=== PATIENT | female | born 1940 | race Caucasian/White ===

== ENCOUNTER → 2016-06-30 | Outpatient (CLI) | payer MEDICARE, OTHER ==
--- NOTE | 2016-07-01 11:22 | MM ---
Reason for exam: follow-up at short interval from prior study. Last mammogram was performed 1 year ago. History: Patient is postmenopausal. Benign excisional biopsy of the left breast. Benign excisional biopsy of the right breast. Physical Findings: Nurse did not find any significant physical abnormalities on exam. MG 3D Diag Mammo W/Cad NORM Bilateral CC and MLO view(s) were taken. Prior study comparison: August 31, 2015, left breast US breast LT. June 29, 2015, mammogram, performed at [facility]. May 22, 2014, left breast mammogram, performed at [facility]. September 09, 2013, mammogram, performed at [facility]. There are scattered fibroglandular densities. Finding: There are stable round, heterogeneous, grouped/clustered calcifications in the upper outer quadrant, middle position of both breasts. Previous mammotome biopsy in the left breast. No significant changes in finding since August 31, 2015, June 29, 2015, May 22, 2014, and September 09, 2013. These results were verbally communicated with the patient on 07/01/16. ASSESSMENT: Benign, BI-RAD 2 RECOMMENDATION: Routine screening mammogram of both breasts in 1 year.
== END | disposition home or self-care (01) ==
LOC: RADMAMWWP 14:05
PROVIDERS: ATTEND Family Medicine
DX: R92.8 Other abnormal and inconclusive findings on diagnostic imaging of breast (principal)
CPT/HCPCS: G0204; G0279

== ENCOUNTER → 2018-01-19 | Outpatient (CLI) | payer MEDICARE, OTHER | END | disposition home or self-care (01) | LOC: CPPFTMAIN 10:06 | PROVIDERS: ATTEND Internal Medicine Cardiovascular Disease | DX: I99.8 Other disorder of circulatory system (principal); I48.0 Paroxysmal atrial fibrillation; T46.2X5A Adverse effect of other antidysrhythmic drugs, initial encounter | CPT/HCPCS: 94060; 94726; 94729 ==

== ENCOUNTER → 2018-07-29 | Outpatient (CLI) | payer MEDICARE, OTHER ==
--- NOTE | 2018-07-30 10:56 | MM ---
Reason for exam: screening (asymptomatic). Last mammogram was performed 1 year and 1 month ago. History: Patient is postmenopausal. Benign excisional biopsy of the left breast. Benign excisional biopsy of the right breast. Physical Findings: A clinical breast exam by your physician is recommended on an annual basis and results should be correlated with mammographic findings. MG 3D Screening Mammo W/Cad Bilateral CC and MLO view(s) were taken. Prior study comparison: July 02, 2017, bilateral MG 3d screening mammo w/cad. June 30, 2016, bilateral MG 3d diag mammo w/cad NORM. There are scattered fibroglandular densities. No significant changes when compared with prior studies. ASSESSMENT: Benign, BI-RAD 2 RECOMMENDATION: Routine screening mammogram of both breasts in 1 year.
== END ==
LOC: RADMAMWWP 15:05
PROVIDERS: ATTEND Family Medicine
DX: Z12.31 Encounter for screening mammogram for malignant neoplasm of breast (principal)
CPT/HCPCS: 77063; 77067

== ENCOUNTER 2018-09-21 22:45 | Inpatient (IN) | payer OTHER, MEDICARE ==
[2018-09-21] MEDS ORDERED: MORPHINE SULFATE 2 MG/ML SYRINGE IVP STA (23:03)
[2018-09-21] MEDS ORDERED: DILTIAZEM DRIP BOLUS FROM BAG 1 MG SOLN IV ONE (23:04)
[2018-09-21] MEDS ORDERED: DILTIAZEM 125 MG in SODIUM CHLORIDE 0.9% 100 ML IV SCH (23:15)
--- NOTE | 2018-09-21 23:30 | XR ---
EXAM: XR Chest, 2 Views CLINICAL HISTORY: Chest Pain TECHNIQUE: Frontal and lateral views of the chest. COMPARISON: 04/11/2014 FINDINGS: Lungs: Unremarkable. No consolidation. Pleural space: Unremarkable. No pneumothorax. Heart: Stable cardiomediastinal silhouette. Mediastinum: See above. Bones/joints: No acute osseous abnormality. Tubes, lines and devices: Telemetry leads overlie the patient. IMPRESSION: No acute cardiopulmonary process.
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
[2018-09-22] MEDS ORDERED: NITROGLYCERIN SL TABS 0.4 MG TAB SUBLINGUAL PRN (00:33)
[2018-09-22] MEDS ORDERED: MORPHINE SULFATE 2 MG/ML SYRINGE IVP PRN (00:33)
[2018-09-22] MEDS: SODIUM CHLORIDE 0.9% 1,000 ML IV SCH (02:11)
[2018-09-22 02:36] LABS: Basophils % (A) 0 %; Eosinophils % (A) 0 %; HCT 41.1 % (34.0-46.0); HGB 12.8 gm/dL (11.4-16.0); Lymphocytes # (A) 1.7 k/uL (1.0-4.8); Lymphocytes % (A) 14 %; MCHC 31.3 g/dL (31.0-37.0); Mean Platelet Volume 8.5; Monocytes # (A) 0.7 k/uL (0-1.0); Monocytes % (A) 6 %; Neutrophils # (A) 9.5 k/uL (1.3-7.7); Neutrophils % (A) 78 %; Platelet Count 183 k/uL (150-450); RBC 4.95 m/uL (3.80-5.40); RDW 14.4 % (11.5-15.5); WBC 12.1 k/uL (3.8-10.6)
[2018-09-22 02:38] LABS: Albumin 3.8 g/dL (3.5-5.0); Magnesium 1.7 mg/dL (1.6-2.3); Potassium 4.7 mmol/L (3.5-5.1); Total Bilirubin 0.7 mg/dL (0.2-1.3); Total Protein 6.8 g/dL (6.3-8.2)
[2018-09-22 02:42] LABS: Partial Thromboplastin Time 22.5 sec (22.0-30.0); Prothrombin Time 10.4 sec (9.0-12.0)
[2018-09-22 05:36] LABS: Glucose,Whole Blood 123 mg/dL (75-99)
[2018-09-22] MEDS: INSULIN ASPART (NovoLOG) 100 UNIT/ML VIAL SQ SCH ×4 (06:47→21:45)
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
[2018-09-22] MEDS: LEVOTHYROXINE 25 MCG TAB PO SCH (09:28)
[2018-09-22] MEDS: FUROSEMIDE 20 MG TAB PO SCH (09:28)
[2018-09-22] MEDS: ATORVASTATIN 10 MG TAB PO SCH (09:28)
[2018-09-22] MEDS: LISINOPRIL 10 MG TAB PO SCH (09:28)
[2018-09-22] MEDS: METOPROLOL TARTRATE 50 MG TAB PO SCH (09:28)
[2018-09-22 11:45] LABS: Glucose,Whole Blood 177 mg/dL (75-99)
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
[2018-09-22 16:49] LABS: Glucose,Whole Blood 128 mg/dL (75-99)
[2018-09-22] MEDS ORDERED: RIVAROXABAN 20 MG TAB PO SCH (18:30)
[2018-09-22 20:47] LABS: Glucose,Whole Blood 188 mg/dL (75-99)
[2018-09-22 21:23] LABS: Hemoglobin A1C 9.2 % (4.0-6.0)
[2018-09-23] MEDS: SODIUM CHLORIDE 0.9% 1,000 ML IV SCH (02:34)
[2018-09-23 06:20] LABS: Glucose,Whole Blood 131 mg/dL (75-99)
[2018-09-23] MEDS: LEVOTHYROXINE 25 MCG TAB PO SCH (06:25)
[2018-09-23] MEDS: INSULIN ASPART (NovoLOG) 100 UNIT/ML VIAL SQ SCH ×2 (06:25→12:35)
[2018-09-23 07:04] LABS: Cholesterol 119 mg/dL (<200); HDL Cholesterol 45 mg/dL (40-60); LDL Cholesterol,Calculated 58 mg/dL (0-99); Triglycerides 81 mg/dL (<150)
[2018-09-23] MEDS ORDERED: ASPIRIN 325 MG TAB PO SCH (09:00)
[2018-09-23] MEDS: METOPROLOL TARTRATE 50 MG TAB PO SCH (09:50)
[2018-09-23] MEDS: FUROSEMIDE 20 MG TAB PO SCH (09:50)
[2018-09-23] MEDS: LISINOPRIL 10 MG TAB PO SCH (09:50)
[2018-09-23] MEDS: ATORVASTATIN 10 MG TAB PO SCH (09:53)
--- NOTE | 2018-09-23 10:00 | ECHOF ---
Referral Reason:afib MEASUREMENTS -------- HEIGHT: 157.5 cm WEIGHT: 68.5 kg BP: RVIDd: 2.9 cm (< 3.3) IVSd: 1.2 cm (0.6 - 1.1) LVIDd: 3.9 cm (3.9 - 5.3) LVPWd: 1.4 cm (0.6 - 1.1) IVSs: 1.4 cm LVIDs: 2.9 cm LVPWs: 1.8 cm LAESV Index (A-L): 34.49 ml/m Ao Diam: 2.8 cm (2.0 - 3.7) AV Cusp: 1.6 cm (1.5 - 2.6) LA Diam: 3.1 cm (2.7 - 3.8) RAP: 5.00 mmHg RVSP: 27.92 mmHg FINDINGS -------- Atrial fibrillation. This was a technically good study. The left ventricular size is normal. There is mild concentric left ventricular hypertrophy. Overa ll left ventricular systolic function is low-normal with, an EF between 50 - 55 %. The right ventricle is normal in size. LA is moderately dilated 34-39 ml/m2 The right atrial size is normal. The aortic valve is trileaflet and appears structurally normal. The mitral valve is normal. The mitral valve leaflets are mildly thickened. Mild mitral regurgita tion is present. The tricuspid valve appears structurally normal. Mild tricuspid regurgitation present. The right ventricular systolic pressure, as measured by Doppler, is 27.92mmHg. There is no pulmonic regurgitation present. The aortic root size is normal. Normal inferior vena cava with normal inspiratory collapse consistent with estimated right atrial pre ssure of 5 mmHg. Echo free space indicative of a pericardial fat pad. CONCLUSIONS -------- 1. Atrial fibrillation. 2. This was a technically good study. 3. The left ventricular size is normal. 4. There is mild concentric left ventricular hypertrophy. 5. Overall left ventricular systolic function is low-normal with, an EF between 50 - 55 %. 6. The right ventricle is normal in size. 7. LA is moderately dilated 34-39 ml/m2 8. The right atrial size is normal. 9. The aortic valve is trileaflet and appears structurally normal. 10. The mitral valve is normal. 11. The mitral valve leaflets are mildly thickened. 12. Mild mitral regurgitation is present. 13. The tricuspid valve appears structurally normal. 14. Mild tricuspid regurgitation present. 15. The right ventricular systolic pressure, as measured by Doppler, is 27.92mmHg. 16. There is no pulmonic regurgitation present. 17. The aortic root size is normal. 18. Normal inferior vena cava with normal inspiratory collapse consistent with estimated right atrial pressure of 5 mmHg. 19. Echo free space indicative of a pericardial fat pad. [employer] MANAGER: Anupama Hernandez RDCS
[2018-09-23 10:43] VITALS: RESP 18
[2018-09-23 11:54] LABS: Glucose,Whole Blood 135 mg/dL (75-99)
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
[2018-09-23 14:22] VITALS: BP 124/87; PULSE 108; TEMP 97.8
[2018-09-23 15:02] VITALS: BMI 27.4
[2018-09-23 16:53] LABS: Glucose,Whole Blood 175 mg/dL (75-99)
[2018-09-23] MEDS ORDERED: RIVAROXABAN 15 MG TAB PO SCH (18:30)
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
[2018-09-24] MEDS ORDERED: METOPROLOL SUCCINATE (ER) 50 MG TAB.ER.24H PO SCH (09:00)
== END 2018-09-23 17:10 | disposition home or self-care (01) | DRG 310 ==
LOC: EC 22:45 → 3SCARD 09-22 00:37
PROVIDERS: ADMIT Hospitalist; ATTEND Hospitalist
DX: I48.1 Persistent atrial fibrillation (principal); I42.9 Cardiomyopathy, unspecified; E11.9 Type 2 diabetes mellitus without complications; S60.511A Abrasion of right hand, initial encounter; I11.9 Hypertensive heart disease without heart failure; E03.9 Hypothyroidism, unspecified; I25.10 Atherosclerotic heart disease of native coronary artery without angina pectoris; E78.5 Hyperlipidemia, unspecified; Z79.4 Long term (current) use of insulin; Z79.890 Hormone replacement therapy; Z79.01 Long term (current) use of anticoagulants; Z79.899 Other long term (current) drug therapy; Z96.659 Presence of unspecified artificial knee joint; Z90.49 Acquired absence of other specified parts of digestive tract; V49.50XA Passenger injured in collision with unspecified motor vehicles in traffic accident, initial encounter; Y92.410 Unspecified street and highway as the place of occurrence of the external cause
CPT/HCPCS: 71046; 80053; 80061; 83036; 83735; 84443; 84484; 85025; 85610; 85730; 93005; 93306; 96365; 96376; 99285

== ENCOUNTER → 2018-10-06 | Outpatient (CLI) | payer OTHER, MEDICARE ==
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
== END | disposition home or self-care (01) ==
LOC: RADUSWWP 09:58
PROVIDERS: ATTEND Family Medicine
DX: R19.00 Intra-abdominal and pelvic swelling, mass and lump, unspecified site (principal); S20.20XA Contusion of thorax, unspecified, initial encounter; Z90.49 Acquired absence of other specified parts of digestive tract
CPT/HCPCS: 76700

== ENCOUNTER → 2018-10-07 | Outpatient (CLI) | payer OTHER, MEDICARE ==
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
== END | disposition home or self-care (01) ==
LOC: RADXRMAIN 09:56
PROVIDERS: ATTEND Family Medicine
DX: S22.32XA Fracture of one rib, left side, initial encounter for closed fracture (principal)

== ENCOUNTER 2018-11-04 15:43 | Observation (INO) | payer MEDICARE, OTHER ==
[2018-11-04] MEDS ORDERED: SODIUM CHLORIDE 0.9% 1,000 ML IV STA (16:09)
--- NOTE | 2018-11-04 16:25 | ED ---
Arrhythmia/Palpitations HPI - General Chief Complaint: Arrhythmia/Palpitations Stated Complaint: Abnormal EKG Time Seen by Provider: 11/04/18 15:58 Source: patient, RN notes reviewed, old records reviewed Mode of arrival: wheelchair Limitations: no limitations - History of Present Illness Initial Comments: This is a 78-year-old female the ER for evaluation presented for evaluation of irregular heart rate. Patient was at normal checkup with family doctor and sent in for evaluation. Patient states she has history of H of fibrillation has no complaints, admits to playing golf yesterday without significant complaint no difficulties no nausea vomiting no headache chest pain shortness of breath, no episodes of syncope. Patient's been taking all medications as prescribed. Patient was found to be in the doctor's office to have H of fibrillation el evated heart rate and sent to ER for evaluation MD Complaint: rapid heart beat, atrial fibrillation -: unknown Context: occurred during rest Arrhythmia History: atrial fibrillation, on anti-coagulants Associated Symptoms: denies other symptoms - Related Data Home Medications Medication Instructions Recorded Confirmed Furosemide [Lasix] 20 mg PO DAILY 07/14/13 11/04/18 Lisinopril [Zestril] 10 mg PO DAILY 07/14/13 11/04/18 Atorvastatin [Lipitor] 10 mg PO DAILY 07/18/13 11/04/18 Levothyroxine Sodium [Synthroid] 25 mcg PO DAILY 07/18/13 11/04/18 Cholecalciferol [Vitamin D3 (25 2,000 unit PO DAILY 09/22/18 11/04/18 Mcg = 1000 Iu)] Insulin Glargine,Hum.rec.anlog 12 unit SQ HS 09/22/18 11/04/18 [Lantus Solostar] Insulin Lispro [humaLOG Kwikpen] 2 unit SQ AC-TID 09/22/18 11/04/18 Pioglitazone HCl 30 mg PO DAILY 09/22/18 11/04/18 Rivaroxaban [Xarelto] 20 mg PO W/SUPPER 09/22/18 11/04/18 metFORMIN HCL [Glucophage] 500 mg PO BID-W/MEALS 09/22/18 11/04/18 Previous Rx's Medication Instructions Recorded Metoprolol Succinate (ER) [Toprol 50 mg PO DAILY #30 tab.er.24h 09/23/18 XL] Allergies Allergy/AdvReac Type Severity Reaction Status Date / Time No Known Allergies Allergy Verified 11/04/18 16:12 Review of Systems ROS Statement: Those systems with pertinent positive or pertinent negative responses have been documented in the HPI. ROS Other: All systems not noted in ROS Statement are negative. Past Medical History Past Medical History: Atrial Fibrillation, Diabetes Mellitus Additional Past Medical History / Comment(s): SEE DR TERESA'S H&P History of Any Multi-Drug Resistant Organisms: None Reported Past Surgical History: Breast Surgery Past Anesthesia/Blood Transfusion Reactions: No Reported Reaction Past Psychological History: No Psychological Hx Reported Smoking Status: Never smoker Past Alcohol Use History: None Reported Past Drug Use History: None Reported General Exam Limitations: no limitations General appearance: alert, in no apparent distress Head exam: Present: atraumatic, normocephalic, normal inspection Eye exam: Present: normal appearance, PERRL, EOMI. Absent: scleral icterus, c onjunctival injection, periorbital swelling ENT exam: Present: normal exam, mucous membranes moist Neck exam: Present: normal inspection. Absent: tenderness, meningismus, lymphadenopathy Respiratory exam: Present: normal lung sounds bilaterally. Absent: respiratory distress, wheezes, rales, rhonchi, stridor Cardiovascular Exam: Present: tachycardia, irregular rhythm, normal heart sounds. Absent: systolic murmur, diastolic murmur, rubs, gallop, clicks GI/Abdominal exam: Present: soft, normal bowel sounds. Absent: distended, tenderness, guarding, rebound, rigid Extremities exam: Present: normal inspection, full ROM, normal capillary refill. Absent: tenderness, pedal edema, joint swelling, calf tenderness Back exam: Present: normal inspection Neurological exam: Present: alert, oriented X3, CN II-XII intact Psychiatric exam: Present: normal affect, normal mood Skin exam: Present: warm, dry, intact, normal color. Absent: rash Course Vital Signs 11/04/18 11/04/18 11/04/18 15:50 16:30 17:00 Temperature 97.9 F Pulse Rate 128 H 116 H 134 H Respiratory 20 17 15 Rate Blood Pressure 143/99 145/95 153/90 O2 Sat by Pulse 99 97 100 Oximetry 11/04/18 18:00 Temperature Pulse Rate 109 H Respiratory 17 Rate Blood Pressure 140/89 O2 Sat by Pulse 100 Oximetry - Reevaluation(s) Reevaluation #1: 11/04/18 16:35 Medical record is reviewed history of A. fib on Xarelto Reevaluation #2: 11/04/18 18:34 Patient remains atrial fibrillation with rapid rate EKG Findings - EKG Comments: EKG Findings:: EKG shows A. fib with RVR rate 1:30, QRS 76, QTc 439 Medical Decision Making - Medical Decision Making 78 female the ER for evaluation. Patient will be admitted for atrial fibrillation with RVR. Patient is regarding anticoagulated - Lab Data Result diagrams: 11/04/18 16:17 11/04/18 16:17 Lab Results 11/04/18 11/04/18 11/04/18 Range/Units 16:17 16:17 16:17 WBC 8.0 (3.8-10.6) k/uL RBC 4.75 (3.80-5.40) m/uL Hgb 12.6 (11.4-16.0) gm/dL Hct 40.9 (34.0-46.0) % MCV 86.0 (80.0-100.0) fL MCH 26.5 (25.0-35.0) pg MCHC 30.9 L (31.0-37.0) g/dL RDW 16.1 H (11.5-15.5) % Plt Count 230 (150-450) k/uL Neutrophils % 59 % Lymphocytes % 31 % Monocytes % 7 % Eosinophils % 1 % Basophils % 1 % Neutrophils # 4.7 (1.3-7.7) k/uL Lymphocytes # 2.5 (1.0-4.8) k/uL Monocytes # 0.5 (0-1.0) k/uL Eosinophils # 0.1 (0-0.7) k/uL Basophils # 0.1 (0-0.2) k/uL Hypochromasia Slight Anisocytosis Slight PT 10.2 (9.0-12.0) sec INR 0.9 (<1.2) APTT 24.8 (22.0-30.0) sec Sodium 144 (137-145) mmol/L Potassium 4.1 (3.5-5.1) mmol/L Chloride 111 H (98-107) mmol/L Carbon Dioxide 22 (22-30) mmol/L Anion Gap 11 mmol/L BUN 23 H (7-17) mg/dL Creatinine 1.06 H (0.52-1.04) mg/dL Est GFR (CKD-EPI)AfAm 58 (>60 ml/min/1.73 sqM) Est GFR (CKD-EPI)NonAf 50 (>60 ml/min/1.73 sqM) Glucose 88 (74-99) mg/dL Calcium 9.2 (8.4-10.2) mg/dL Magnesium 2.0 (1.6-2.3) mg/dL Total Bilirubin 0.5 (0.2-1.3) mg/dL AST 41 H (14-36) U/L ALT 83 H (9-52) U/L Alkaline Phosphatase 87 (38-126) U/L Creatine Kinase 123 (30-135) U/L Troponin I (0.000-0.034) ng/mL Total Protein 7.3 (6.3-8.2) g/dL Albumin 4.1 (3.5-5.0) g/dL 11/04/18 Range/Units 16:17 WBC (3.8-10.6) k/uL RBC (3.80-5.40) m/uL Hgb (11.4-16.0) gm/dL Hct (34.0-46.0) % MCV (80.0-100.0) fL MCH (25.0-35.0) pg MCHC (31.0-37.0) g/dL RDW (11.5-15.5) % Plt Count (150-450) k/uL Neutrophils % % Lymphocytes % % Monocytes % % Eosinophils % % Basophils % % Neutrophils # (1.3-7.7) k/uL Lymphocytes # (1.0-4.8) k/uL Monocytes # (0-1.0) k/uL Eosinophils # (0-0.7) k/uL Basophils # (0-0.2) k/uL Hypochromasia Anisocytosis PT (9.0-12.0) sec INR (<1.2) APTT (22.0-30.0) sec Sodium (137-145) mmol/L Potassium (3.5-5.1) mmol/L Chloride (98-107) mmol/L Carbon Dioxide (22-30) mmol/L Anion Gap mmol/L BUN (7-17) mg/dL Creatinine (0.52-1.04) mg/dL Est GFR (CKD-EPI)AfAm (>60 ml/min/1.73 sqM) Est GFR (CKD-EPI)NonAf (>60 ml/min/1.73 sqM) Glucose (74-99) mg/dL Calcium (8.4-10.2) mg/dL Magnesium (1.6-2.3) mg/dL Total Bilirubin (0.2-1.3) mg/dL AST (14-36) U/L ALT (9-52) U/L Alkaline Phosphatase (38-126) U/L Creatine Kinase (30-135) U/L Troponin I <0.012 (0.000-0.034) ng/mL Total Protein (6.3-8.2) g/dL Albumin (3.5-5.0) g/dL - Radiology Data Radiology results: report reviewed (Chest x-rays negative for acute disease), image reviewed Disposition Clinical Impression: Atrial fibrillation with RVR Disposition: ADMITTED IP TO THIS HOSP Condition: Good Is patient prescribed a controlled substance at d/c from ED?: No Referrals: Ap Romero DO [Primary Care Provider] - 1-2 days
[2018-11-04 16:30] LABS: Anisocytosis Slight; Basophils # (A) 0.1 k/uL (0-0.2); Basophils % (A) 1 %; Eosinophils # (A) 0.1 k/uL (0-0.7); Eosinophils % (A) 1 %; HCT 40.9 % (34.0-46.0); HGB 12.6 gm/dL (11.4-16.0); Hypochromasia Slight; Lymphocytes # (A) 2.5 k/uL (1.0-4.8); Lymphocytes % (A) 31 %; MCH 26.5 pg (25.0-35.0); MCHC 30.9 g/dL (31.0-37.0); Mean Platelet Volume 8.3; Monocytes # (A) 0.5 k/uL (0-1.0); Monocytes % (A) 7 %; Neutrophils # (A) 4.7 k/uL (1.3-7.7); Neutrophils % (A) 59 %; Platelet Count 230 k/uL (150-450); RBC 4.75 m/uL (3.80-5.40); RDW 16.1 % (11.5-15.5)
[2018-11-04 16:34] LABS: Albumin 4.1 g/dL (3.5-5.0); Calcium 9.2 mg/dL (8.4-10.2); Potassium 4.1 mmol/L (3.5-5.1); Total Bilirubin 0.5 mg/dL (0.2-1.3); Total Protein 7.3 g/dL (6.3-8.2)
[2018-11-04 16:41] LABS: INR 0.9 (<1.2); Partial Thromboplastin Time 24.8 sec (22.0-30.0); Prothrombin Time 10.2 sec (9.0-12.0)
--- NOTE | 2018-11-04 17:01 | XR ---
EXAMINATION TYPE: XR chest 2V DATE OF EXAM: 11/04/2018 COMPARISON: 09/21/2018 HISTORY: Abnormal cardiogram TECHNIQUE: Frontal and lateral views of the chest are obtained. FINDINGS: There is some coarsening of upper lobe interstitial pulmonary markings. Heart is slightly enlarged. There is no heart failure. There are chest leads. Costophrenic angles are clear. There is o steopenia. Arthritic changes noted in the shoulder joints IMPRESSION: Mild fibrotic changes. Mild cardiomegaly. No acute lung disease. No change compared to l ast exam. .
[2018-11-04] MEDS ORDERED: SODIUM CHLORIDE 0.9% 1,000 ML IV ONE (18:06)
[2018-11-04] MEDS ORDERED: DILTIAZEM DRIP BOLUS FROM BAG 1 MG SOLN IV ONE (18:32)
[2018-11-04] MEDS ORDERED: NITROGLYCERIN SL TABS 0.4 MG TAB SUBLINGUAL PRN (18:33)
[2018-11-04] MEDS ORDERED: DILTIAZEM 125 MG in SODIUM CHLORIDE 0.9% 100 ML IV SCH (18:45)
[2018-11-04 21:17] VITALS: BMI 27.4
[2018-11-05 04:40] LABS: Cholesterol 131 mg/dL (<200); HDL Cholesterol 49 mg/dL (40-60); LDL Cholesterol,Calculated 64 mg/dL (0-99); Triglycerides 91 mg/dL (<150)
[2018-11-05] MEDS ORDERED: LEVOTHYROXINE 25 MCG TAB PO SCH (06:30)
[2018-11-05 07:00] LABS: Glucose,Whole Blood 112 mg/dL (75-99)
[2018-11-05] MEDS: INSULIN ASPART (NovoLOG) 100 UNIT/ML VIAL SQ SCH ×4 (07:00→12:29)
[2018-11-05] MEDS ORDERED: metFORMIN 500 MG TAB PO SCH (07:30)
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
[2018-11-05] MEDS ORDERED: LISINOPRIL 10 MG TAB PO SCH (09:00)
[2018-11-05] MEDS ORDERED: ATORVASTATIN 10 MG TAB PO SCH (09:00)
[2018-11-05] MEDS ORDERED: PIOGLITAZONE 30 MG TAB PO SCH (09:00)
[2018-11-05] MEDS ORDERED: CHOLECALCIFEROL 1,000 UNIT TAB PO SCH (09:00)
[2018-11-05] MEDS ORDERED: FUROSEMIDE 20 MG TAB PO SCH (09:00)
[2018-11-05] MEDS ORDERED: METOPROLOL SUCCINATE (ER) 100 MG TAB.ER.24H PO SCH (09:00)
[2018-11-05] MEDS ORDERED: METOPROLOL SUCCINATE (ER) 50 MG TAB.ER.24H PO SCH (09:00)
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
[2018-11-05 10:37] LABS: Appearance,Urine Clear (Clear); Bacteria,Urine Rare /hpf; Bilirubin,Urine Negative (Negative); Blood,Urine Negative (Negative); Color,Urine Yellow; Glucose,Urine (UA) Negative (Negative); Ketones,Urine Negative (Negative); Leukocyte Esterase,Urine Large (Negative); Mucus,Urine Rare /hpf; Nitrite,Urine Negative (Negative); Protein,Urine Negative (Negative); Specific Gravity,Urine 1.022 (1.001-1.035); Squamous Epithelial Cell,Urine 1 /hpf (0-4); WBC,Urine 24 /hpf (0-5)
[2018-11-05 10:59] VITALS: RESP 22
[2018-11-05 11:54] LABS: Glucose,Whole Blood 108 mg/dL (75-99)
[2018-11-05 12:17] VITALS: BP 173/74; PULSE 111; TEMP 97.7
[2018-11-05 14:04] LABS: T4, Free (Free Thyroxine) 1.18 ng/dL (0.78-2.19)
--- NOTE | 2018-11-05 16:41 | P.DS ---
Providers Date of admission: 11/04/18 18:33 Expected date of discharge: 11/05/18 Attending physician: Brissa Barrera Consults: 11/04/18 18:33 Consult Physician Urgent Consulting Provider: Laurie Silva Consult Reason/Comments: afib Do you want consulting provider notified?: Yes Primary care physician: [facility] Course: Final diagnosis Atrial fibrillation with fast ventricular rate Increased AST, ALT Increased creatinine with possible mild acute renal failure History of diabetes type 2 History of breast surgery history of hyperlipidemia History of hypothyroidism Discharge disposition Patient is being discharged in a stable condition with guarded prognosis to home and will follow-up with cardiology in one week. History of present illness This is a pleasant 78-year-old woman the complex history of multiple medical problems and is a Dr. Romero patient in the outpatient setting. Patient has a history of atrial fibrillation and was recently admitted for A. fib with a fast ventricular rate. Patient was started on a Cardizem drip at 5 mg per hour and was monitored closely. Patient denies any chest pain, shortness of breath, or palpitations at this time. Patient denies any nausea or vomiting and tolerating diet. Patient is eager to go home. Patient has remained afebrile. Cardiology was following. Patient is currently stable with much improvement. Patient's Toprol XL was increased from 50 mg to 100 mg daily and tolerating well. Patient will follow up with cardiology in one week. On exam vital signs are stable. Blood pressure is 129/67, temp is 97.8F, heart rate is 99, respirations are 22, oxygen is 99% on room air. Cardio S1 and S2 are heard and irregular. Respiratory system shows diminished in the bases otherwise clear to auscultation. Abdomen is soft and nontender. Nervous system shows no focal deficits and gait is steady. Please refer to medication reconciliation sheet for a list of medications. Patient Condition at Discharge: Good Plan - Discharge Summary New Discharge Prescriptions: New Metoprolol Succinate (ER) [Toprol XL] 100 mg PO DAILY 30 Days #30 tab.er.24h Continue Lisinopril [Zestril] 10 mg PO DAILY Furosemide [Lasix] 20 mg PO DAILY Levothyroxine Sodium [Synthroid] 25 mcg PO DAILY Atorvastatin [Lipitor] 10 mg PO DAILY Pioglitazone HCl 30 mg PO DAILY Rivaroxaban [Xarelto] 20 mg PO W/SUPPER Cholecalciferol [Vitamin D3 (25 Mcg = 1000 Iu)] 2,000 unit PO DAILY metFORMIN HCL [Glucophage] 500 mg PO BID-W/MEALS Insulin Glargine,Hum.rec.anlog [Lantus Solostar] 12 unit SQ HS Insulin Lispro [humaLOG Kwikpen] 2 unit SQ AC-TID Discontinued Metoprolol Succinate (ER) [Toprol XL] 50 mg PO DAILY #30 tab.er.24h Discharge Medication List Furosemide [Lasix] 20 mg PO DAILY 07/14/13 [History] Lisinopril [Zestril] 10 mg PO DAILY 07/14/13 [History] Atorvastatin [Lipitor] 10 mg PO DAILY 07/18/13 [History] Levothyroxine Sodium [Synthroid] 25 mcg PO DAILY 07/18/13 [History] Cholecalciferol [Vitamin D3 (25 Mcg = 1000 Iu)] 2,000 unit PO DAILY 09/22/18 [History] Insulin Glargine,Hum.rec.anlog [Lantus Solostar] 12 unit SQ HS 09/22/18 [History] Insulin Lispro [humaLOG Kwikpen] 2 unit SQ AC-TID 09/22/18 [History] Pioglitazone HCl 30 mg PO DAILY 09/22/18 [History] Rivaroxaban [Xarelto] 20 mg PO W/SUPPER 09/22/18 [History] metFORMIN HCL [Glucophage] 500 mg PO BID-W/MEALS 09/22/18 [History] Metoprolol Succinate (ER) [Toprol XL] 100 mg PO DAILY 30 Days #30 tab.er.24h 11/05/18 [Rx] Follow up Appointment(s)/Referral(s): Ap Romero DO [Primary Care Provider] - 1-2 days (ThursdayNovember 09 at 11:20) Balta Perez MD [STAFF PHYSICIAN] - 1 Week (Appt cancelled in december - November 16 at 3:15) Patient Instructions/Handouts: A-fib (Atrial Fibrillation) (DC), Heart Healthy Diet (DC), Blood Thinners (DC) Activity/Diet/Wound Care/Special Instructions: Activity limited until follow up continue with current diet Medications sent to the [facility] pharmacy follow up with Dr. Perez in one week Discharge Disposition: HOME SELF-CARE
[2018-11-05] MEDS ORDERED: RIVAROXABAN 20 MG TAB PO SCH (17:30)
[2018-11-05] MEDS ORDERED: INSULIN DETEMIR (LEVEMIR) 100 UNIT/ML SYR SQ SCH (21:00)
== END 2018-11-05 13:09 | disposition home or self-care (01) ==
LOC: EC 15:43 → 3SCARD 18:33
PROVIDERS: ADMIT Hospitalist; ATTEND Hospitalist
DX: I48.2 Chronic atrial fibrillation (principal); E03.9 Hypothyroidism, unspecified; E11.9 Type 2 diabetes mellitus without complications; E78.5 Hyperlipidemia, unspecified; I10 Essential (primary) hypertension; I42.9 Cardiomyopathy, unspecified; Z79.01 Long term (current) use of anticoagulants; Z79.4 Long term (current) use of insulin; Z79.890 Hormone replacement therapy; Z79.899 Other long term (current) drug therapy
CPT/HCPCS: 96361 ×2; 96366 ×2; 96376; 96365; 99285; 36415; 93005; 84439; 80061; 80053; 84443; 82550; 83735; 84484 ×2; 85025; 85610; 85730; 81001; 71046; G0378 ×2

== ENCOUNTER 2019-02-15 10:56 | Observation (INO) | payer MEDICARE, OTHER ==
[2019-02-15] MEDS ORDERED: SODIUM CHLORIDE 0.9% 500 ML 500 ML IV STA (11:16)
[2019-02-15] MEDS ORDERED: DILTIAZEM DRIP BOLUS FROM BAG 1 MG SOLN IV ONE (11:16)
--- NOTE | 2019-02-15 11:20 | ED ---
General Adult HPI - General Chief complaint: Chest Pain Stated complaint: Chest pain Time Seen by Provider: 02/15/19 11:00 Source: patient, family, RN notes reviewed, old records reviewed Mode of arrival: wheelchair - History of Present Illness Initial comments: This is an 78-year-old female presents emergency Department with a past medical history significant for atrial fibrillation and the patient states she is on Xarelto. Patient states last night about 3:00 morning she felt her heart start to race and he continues to race this morning. Patient states she's not having any chest pain but she does feel palpitations. Patient states she's also mildly short of breath. Patient denies any recent fever chills or cough. Patient denies any lightheadedness or dizziness. Patient denies any recent illness patient denies any nausea vomiting. Patient denies any abdominal pain. Patient denies any headache patient denies numbness or focal weakness. - Related Data Home Medications Medication Instructions Recorded Confirmed Furosemide [Lasix] 20 mg PO DAILY 07/14/13 02/15/19 Lisinopril [Zestril] 10 mg PO DAILY 07/14/13 02/15/19 Atorvastatin [Lipitor] 10 mg PO HS 07/18/13 02/15/19 Levothyroxine Sodium [Synthroid] 25 mcg PO DAILY 07/18/13 02/15/19 Cholecalciferol [Vitamin D3 (25 2,000 unit PO DAILY 09/22/18 02/15/19 Mcg = 1000 Iu)] Insulin Glargine,Hum.rec.anlog 12 unit SQ HS 09/22/18 02/15/19 [Lantus Solostar] Insulin Lispro [humaLOG Kwikpen] 2 unit SQ AC-TID 09/22/18 02/15/19 metFORMIN HCL [Glucophage] 500 mg PO BID-W/MEALS 09/22/18 02/15/19 Rivaroxaban [Xarelto] 15 mg PO W/SUPPER 02/15/19 02/15/19 Allergies Allergy/AdvReac Type Severity Reaction Status Date / Time No Known Allergies Allergy Verified 02/15/19 11:49 Review of Systems ROS Statement: Those systems with pertinent positive or pertinent negative responses have been documented in the HPI. ROS Other: All systems not noted in ROS Statement are negative. Past Medical History Past Medical History: Atrial Fibrillation, Diabetes Mellitus Additional Past Medical History / Comment(s): SEE DR TERESA'S H&P History of Any Multi-Drug Resistant Organisms: None Reported Past Surgical History: Breast Surgery Past Anesthesia/Blood Transfusion Reactions: No Reported Reaction Past Psychological History: No Psychological Hx Reported Smoking Status: Never smoker Past Alcohol Use History: None Reported Past Drug Use History: None Reported General Exam - General Exam Comments Initial Comments: GENERAL: Patient is well-developed and well-nourished. Patient is nontoxic and well- hydrated and is in mild distress. ENT: Neck is soft and supple. No significant lymphadenopathy is noted. Oropharynx is clear. Moist mucous membranes. Neck has full range of motion without eliciting any pain. EYES: The sclera were anicteric and conjunctiva were pink and moist. Extraocular movements were intact and pupils were equal round and reactive to light. Eyelids were unremarkable. PULMONARY: Unlabored respirations. Good breath sounds bilaterally. No audible rales rhonchi or wheezing was noted. CARDIOVASCULAR: Patient is tachycardic at over 150 beats a minute. ABDOMEN: Soft and nontender with normal bowel sounds. No palpable organomegaly was noted. There is no palpable pulsatile mass. SKIN: Skin is clear with no lesions or rashes and otherwise unremarkable. NEUROLOGIC: Patient is alert and oriented x3. Cranial nerves II through XII are grossly intact. Motor and sensory are also intact. Normal speech, volume and content. Symmetrical smile. MUSCULOSKELETAL: Normal extremities with adequate strength and full range of motion. No lower extremity swelling or edema. No calf tenderness. LYMPHATICS: No significant lymphadenopathy is noted PSYCHIATRIC: Normal psychiatric evaluation. Course Vital Signs 02/15/19 02/15/19 10:59 11:34 Temperature 98.1 F Pulse Rate 165 H 118 H Respiratory 18 16 Rate Blood Pressure 107/93 110/57 O2 Sat by Pulse 95 96 Oximetry Medical Decision Making - Medical Decision Making EKG shows atrial for ablation with rapid ventricular response at 160 beats a minute QRS is 80 QT interval is 294 QTC is 479. Patient's EKG shows no ST segment elevation or depression. I started the patient a Cardizem drip after I gave the patient a Cardizem bolus. Patient's heart rate was down to 125.1 pack and reevaluate the patient. Patient's chest x-ray shows a left lower basilar infiltrate. Patient states she did start coughing last night and was coughing quite a bit of sputum. I started the patient on Rocephin. I spoke with Dr. Madrid he agreed to admit the patient admitted the patient I wrote admitting orders and consult cardiology continued antibiotics. Cardizem was also continued on the floor. - Lab Data Result diagrams: 02/15/19 11:22 12 11:22 Lab Results 02/15/19 02/15/19 02/15/19 Range/Units 11:22 11:22 11:22 WBC 18.1 H (3.8-10.6) k/uL RBC 5.13 (3.80-5.40) m/uL Hgb 13.8 (11.4-16.0) gm/dL Hct 44.8 (34.0-46.0) % MCV 87.4 (80.0-100.0) fL MCH 27.0 (25.0-35.0) pg MCHC 30.8 L (31.0-37.0) g/dL RDW 15.1 (11.5-15.5) % Plt Count 228 (150-450) k/uL Neutrophils % 93 % Lymphocytes % 3 % Monocytes % 2 % Eosinophils % 1 % Basophils % 0 % Neutrophils # 16.9 H (1.3-7.7) k/uL Lymphocytes # 0.6 L (1.0-4.8) k/uL Monocytes # 0.4 (0-1.0) k/uL Eosinophils # 0.1 (0-0.7) k/uL Basophils # 0.0 (0-0.2) k/uL PT 11.8 (9.0-12.0) sec INR 1.1 (<1.2) APTT 29.5 (22.0-30.0) sec Sodium 138 (137-145) mmol/L Potassium 5.0 (3.5-5.1) mmol/L Chloride 109 H (98-107) mmol/L Carbon Dioxide 19 L (22-30) mmol/L Anion Gap 10 mmol/L BUN 18 H (7-17) mg/dL Creatinine 1.07 H (0.52-1.04) mg/dL Est GFR (CKD-EPI)AfAm 57 (>60 ml/min/1.73 sqM) Est GFR (CKD-EPI)NonAf 49 (>60 ml/min/1.73 sqM) Glucose 179 H (74-99) mg/dL Calcium 9.2 (8.4-10.2) mg/dL Magnesium 1.4 L (1.6-2.3) mg/dL Total Bilirubin 1.5 H (0.2-1.3) mg/dL AST 26 (14-36) U/L ALT 32 (9-52) U/L Alkaline Phosphatase 54 (38-126) U/L Troponin I (0.000-0.034) ng/mL Total Protein 7.0 (6.3-8.2) g/dL Albumin 3.9 (3.5-5.0) g/dL 02/15/19 Range/Units 11:22 WBC (3.8-10.6) k/uL RBC (3.80-5.40) m/uL Hgb (11.4-16.0) gm/dL Hct (34.0-46.0) % MCV (80.0-100.0) fL MCH (25.0-35.0) pg MCHC (31.0-37.0) g/dL RDW (11.5-15.5) % Plt Count (150-450) k/uL Neutrophils % % Lymphocytes % % Monocytes % % Eosinophils % % Basophils % % Neutrophils # (1.3-7.7) k/uL Lymphocytes # (1.0-4.8) k/uL Monocytes # (0-1.0) k/uL Eosinophils # (0-0.7) k/uL Basophils # (0-0.2) k/uL PT (9.0-12.0) sec INR (<1.2) APTT (22.0-30.0) sec Sodium (137-145) mmol/L Potassium (3.5-5.1) mmol/L Chloride (98-107) mmol/L Carbon Dioxide (22-30) mmol/L Anion Gap mmol/L BUN (7-17) mg/dL Creatinine (0.52-1.04) mg/dL Est GFR (CKD-EPI)AfAm (>60 ml/min/1.73 sqM) Est GFR (CKD-EPI)NonAf (>60 ml/min/1.73 sqM) Glucose (74-99) mg/dL Calcium (8.4-10.2) mg/dL Magnesium (1.6-2.3) mg/dL Total Bilirubin (0.2-1.3) mg/dL AST (14-36) U/L ALT (9-52) U/L Alkaline Phosphatase (38-126) U/L Troponin I <0.012 (0.000-0.034) ng/mL Total Protein (6.3-8.2) g/dL Albumin (3.5-5.0) g/dL Critical Care Time Critical Care Time: Yes Total Critical Care Time: 35 Disposition Clinical Impression: Atrial fibrillation with rapid ventricular response, Pneumonia Disposition: ADMITTED IP TO THIS HOSP Referrals: Ap Romero DO [Primary Care Provider] - 1-2 days Time of Disposition: 12:40
[2019-02-15] MEDS ORDERED: DILTIAZEM 125 MG in SODIUM CHLORIDE 0.9% 100 ML IV SCH (11:30)
[2019-02-15 11:35] LABS: Basophils % (A) 0 %; Eosinophils # (A) 0.1 k/uL (0-0.7); Eosinophils % (A) 1 %; HCT 44.8 % (34.0-46.0); HGB 13.8 gm/dL (11.4-16.0); Lymphocytes # (A) 0.6 k/uL (1.0-4.8); Lymphocytes % (A) 3 %; MCHC 30.8 g/dL (31.0-37.0); MCV 87.4 fL (80.0-100.0); Mean Platelet Volume 9.4; Monocytes # (A) 0.4 k/uL (0-1.0); Monocytes % (A) 2 %; Neutrophils # (A) 16.9 k/uL (1.3-7.7); Neutrophils % (A) 93 %; Platelet Count 228 k/uL (150-450); RBC 5.13 m/uL (3.80-5.40); RDW 15.1 % (11.5-15.5); WBC 18.1 k/uL (3.8-10.6)
[2019-02-15 11:44] LABS: Albumin 3.9 g/dL (3.5-5.0); Calcium 9.2 mg/dL (8.4-10.2); Magnesium 1.4 mg/dL (1.6-2.3); Total Bilirubin 1.5 mg/dL (0.2-1.3)
--- NOTE | 2019-02-15 11:55 | XR ---
EXAMINATION TYPE: XR chest 2V DATE OF EXAM: 02/15/2019 COMPARISON: Chest x-ray November 04, 2018. HISTORY: Chest pain and cough since yesterday. TECHNIQUE: Frontal and lateral views of the chest are obtained. FINDINGS: There is chronic parenchymal changes bilaterally with new left basilar opacity on frontal view less well seen on lateral view. Right lung remains clear. No pleural effusion or pneumothorax se en bilaterally. The cardiac silhouette size remains enlarged with atherosclerotic aorta. The osseou s structures remain demineralized. Degenerative change both shoulders at the glenohumeral joint is pr esent. IMPRESSION: Chronic changes and cardiomegaly with developing left basilar acute infiltrate thought p resent. Consider progress study.
[2019-02-15 12:10] LABS: INR 1.1 (<1.2); Partial Thromboplastin Time 29.5 sec (22.0-30.0); Prothrombin Time 11.8 sec (9.0-12.0)
[2019-02-15] MEDS ORDERED: cefTRIAXone IN SWFI 1,000 MG/10 ML SYRINGE IVP STA (12:35)
[2019-02-15] MEDS ORDERED: PNEUMONIA PROTOCOL UTILIZED 1 EACH MISC PO PRN (12:41)
[2019-02-15] MEDS ORDERED: AZITHROMYCIN 500 MG in SODIUM CHLORIDE 0.9% 250 ML IVPB STA (12:41)
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
[2019-02-15] MEDS ORDERED: RIVAROXABAN 15 MG TAB PO SCH (17:30)
--- NOTE | 2019-02-15 18:11 | ECHOF ---
Referral Reason:afib MEASUREMENTS -------- HEIGHT: 157.5 cm WEIGHT: 69.9 kg BP: RVIDd: 2.9 cm (< 3.3) IVSd: 0.9 cm (0.6 - 1.1) LVIDd: 4.3 cm (3.9 - 5.3) LVPWd: 1.0 cm (0.6 - 1.1) IVSs: 1.1 cm LVIDs: 3.7 cm LVPWs: 1.2 cm IVSd: 1.0 cm (0.6 - 1.1) LVIDd: 4.6 cm (3.9 - 5.3) LVPWd: 1.0 cm (0.6 - 1.1) IVSs: 1.1 cm LVIDs: 3.3 cm LVPWs: 1.7 cm EDV(Teich): 95 ml ESV(Teich): 45 ml EF(Teich): 53 % %FS: 27 % SV(Teich): 50 ml Ao Diam: 2.5 cm (2.0 - 3.7) AV Cusp: 1.8 cm (1.5 - 2.6) LA Diam: 2.6 cm (2.7 - 3.8) RAP: 5.00 mmHg RVSP: 10.41 mmHg FINDINGS -------- Atrial fibrillation. This was a technically difficult study with suboptimal views. The left ventricular size is normal. Left ventricular wall thickness is normal. There is severe g lobal hypokinesis of LV . Overall left ventricular systolic function is severely impaired with, an EF between 20 - 25 %. Left ventricular fillimg pressure cannot be estimated due to Atrial fibrillat ion. The left atrial size is normal. The right atrial size is normal. Aortic valve is trileaflet and is mildly thickened. The mitral valve is normal. The mitral valve leaflets are mildly thickened. Mild mitral regurgita tion is present. The tricuspid valve appears structurally normal. Mild tricuspid regurgitation present. Right vent ricular systolic pressure is normal at < 35 mmHg. There is no pulmonic regurgitation present. The aortic root size is normal. IVC Not well visulized. There is no pericardial effusion. 5.0mg of Lumason was utilized for enhancement of images CONCLUSIONS -------- 1. Atrial fibrillation. 2. This was a technically difficult study with suboptimal views. 3. The left ventricular size is normal. 4. Left ventricular wall thickness is normal. 5. Left ventricular fillimg pressure cannot be estimated due to Atrial fibrillation. 6. The left atrial size is normal. 7. The right atrial size is normal. 8. 5.0mg of Lumason was utilized for enhancement of images 9. Aortic valve is trileaflet and is mildly thickened. 10. The mitral valve is normal. 11. The mitral valve leaflets are mildly thickened. 12. Mild mitral regurgitation is present. 13. The tricuspid valve appears structurally normal. 14. Mild tricuspid regurgitation present. 15. Right ventricular systolic pressure is normal at < 35 mmHg. 16. There is no pulmonic regurgitation present. 17. The aortic root size is normal. 18. IVC Not well visulized. 19. There is no pericardial effusion. FLAT LOCKER: Anupama Hernandez RDCS
[2019-02-15] MEDS: METOPROLOL SUCCINATE (ER) 50 MG TAB.ER.24H PO SCH (19:53)
[2019-02-15 20:09] LABS: Glucose,Whole Blood 121 mg/dL (75-99)
[2019-02-15] MEDS ORDERED: ATORVASTATIN 10 MG TAB PO SCH (21:00)
--- NOTE | 2019-02-15 22:35 | P.HPIM ---
History of Present Illness H&P Date: 02/15/19 Chief Complaint: Heart racing History of present complaint: This is a pleasant 78-year-old patient of Dr. Dioni wright. Chronic stable medical conditions include hypertension, diabetes, hypothyroid, mild cognitive impairment. Patient has a known history of atrial fibrillation for which she is on Xarelto. Patient today felt her heart racing and slight discomfort of the chest and fluttering sensation. Minimal lightheadedness. Decided to come in. Found to be in atrial fibrillation with rapid ventricular rate. Patient was started on Cardizem drip. Cardiology was consulted. She has seen Dr. Kang from EP services in the past. Due for a procedure later this month. Review of systems: GEN.: Tired EYES: None HEENT: None NECK: None RESPIRATORY: None CARDIOVASCULAR: [As above GASTROINTESTINAL: None GENITOURINARY: None MUSCULOSKELETAL: [Some joint pains LYMPHATICS: None HEMATOLOGICAL: None PSYCHIATRY: Some forgetfulness NEUROLOGICAL: None Past medical history: Atrial fibrillation, hypertension, diabetes, hypothyroid Social history: Does not smoke or drink alcohol. Lives with her . Family history: Reviewed, noncontributory to presentation Physical examination: VITAL SIGNS: 98.1, 160, 18, 107/93, 95% room air GENERAL: BMI 28.3, laying in bed a bit tired. EYES: Pupils equal. Conjunctiva normal. HEENT: External appearance of nose and ears normal, oral cavity grossly normal. NECK: JVD not raised; masses not palpable. HEART: Heart sounds irregular; no edema. LUNGS: Respiratory rate normal; clear to auscultation. ABDOMEN: Soft, nontender, liver spleen not palpable, no masses palpable. PSYCH: Alert and oriented x3; mood and affect normal. Patient is forgetful NEUROLOGICAL: Cranial nerves grossly intact; no facial asymmetry, power and sensation grossly intact. LYMPHATICS: No lymph nodes palpable in the axilla and neck MUSCULOSKELETAL: Evidence of OA in the hands INVESTIGATIONS, reviewed in the clinical context: White count 18.1 hemoglobin 13.805 bun 18 and creatinine 1.076 Troponin I negative EKG tracing personally reviewed by me-atrial fibrillation with rapid ventricular rate about 160 Chest x-ray film personally reviewed by me-cardiomegaly and some venous prominence 2-D echo-atrial fibrillation, EF 20-25% Assessment: -Persistent atrial fibrillation now with a rapid ventricular rate -Cardiomyopathy EF 20-25% could be arrhythmia induced, including hypertensive heart disease -Essential hypertension -Diabetes mellitus type 2 chronically on insulin -Hypothyroid -Mild cognitive impairment Plan: Home medications resumed. Patient currently IV Cardizem. Patient has no respiratory symptoms. We'll DC the antibiotics. Cardiology consulted. Patient on Cardizem drip. Patient is on Xarelto. . Metoprolol was added. Past Medical History Past Medical History: Atrial Fibrillation, Diabetes Mellitus Additional Past Medical History / Comment(s): SEE DR KANG'S H&P History of Any Multi-Drug Resistant Organisms: None Reported Past Surgical History: Breast Surgery Past Anesthesia/Blood Transfusion Reactions: No Reported Reaction Past Psychological History: No Psychological Hx Reported Smoking Status: Never smoker Past Alcohol Use History: None Reported Past Drug Use History: None Reported - Past Family History Father History Unknown: Yes Medications and Allergies Home Medications Medication Instructions Recorded Confirmed Type Furosemide [Lasix] 20 mg PO DAILY 07/14/13 02/15/19 History Lisinopril [Zestril] 10 mg PO DAILY 07/14/13 02/15/19 History Atorvastatin [Lipitor] 10 mg PO HS 07/18/13 02/15/19 History Levothyroxine Sodium [Synthroid] 25 mcg PO DAILY 07/18/13 02/15/19 History Cholecalciferol [Vitamin D3 (25 2,000 unit PO DAILY 09/22/18 02/15/19 History Mcg = 1000 Iu)] Insulin Glargine,Hum.rec.anlog 12 unit SQ HS 09/22/18 02/15/19 History [Lantus Solostar] Insulin Lispro [humaLOG Kwikpen] 2 unit SQ AC-TID 09/22/18 02/15/19 History metFORMIN HCL [Glucophage] 500 mg PO BID-W/MEALS 09/22/18 02/15/19 History Rivaroxaban [Xarelto] 15 mg PO W/SUPPER 02/15/19 02/15/19 History Allergies Allergy/AdvReac Type Severity Reaction Status Date / Time No Known Allergies Allergy Verified 02/15/19 11:49 Physical Exam Vitals: Vital Signs Temp Pulse Pulse Resp BP BP Pulse Ox 02/15/19 19:48 98.4 F 108 H 16 124/58 02/15/19 16:00 97.9 F 126 H 16 109/63 97 02/15/19 15:00 119 H 20 101/56 95 02/15/19 14:00 117 H 98/80 02/15/19 13:20 113 H 18 114/83 96 02/15/19 13:00 123 H 112/75 02/15/19 12:00 125 H 112/54 99 02/15/19 11:34 118 H 16 110/57 96 02/15/19 11:13 95 02/15/19 10:59 98.1 F 165 H 18 107/93 95 Intake and Output 02/15/19 02/15/19 02/15/19 06:59 14:59 22:59 Intake Total 240 Balance 240 Intake: Oral 240 Other: Weight 68.039 kg 70.2 kg Results CBC & Chem 7: 02/15/19 11:22 02/15/19 11:22 Labs: Abnormal Lab Results - Last 24 Hours (Table) 02/15/19 02/15/19 02/15/19 Range/Units 11:22 11:22 20:08 WBC 18.1 H (3.8-10.6) k/uL MCHC 30.8 L (31.0-37.0) g/dL Neutrophils # 16.9 H (1.3-7.7) k/uL Lymphocytes # 0.6 L (1.0-4.8) k/uL Chloride 109 H (98-107) mmol/L Carbon Dioxide 19 L (22-30) mmol/L BUN 18 H (7-17) mg/dL Creatinine 1.07 H (0.52-1.04) mg/dL Glucose 179 H (74-99) mg/dL POC Glucose (mg/dL) 121 H (75-99) mg/dL Magnesium 1.4 L (1.6-2.3) mg/dL Total Bilirubin 1.5 H (0.2-1.3) mg/dL Thrombosis Risk Factor Assmnt - Choose All That Apply Any of the Below Risk Factors Present?: No Other Risk Factors: Yes Each Risk Factor Represents 3 Points: Age 75 years or older Thrombosis Risk Factor Assessment Total Risk Factor Score: 3 Thrombosis Risk Factor Assessment Level: Moderate Risk
[2019-02-16 06:16] LABS: Glucose,Whole Blood 144 mg/dL (75-99)
[2019-02-16 06:27] LABS: Calcium 8.9 mg/dL (8.4-10.2); Potassium 4.4 mmol/L (3.5-5.1)
--- NOTE | 2019-02-16 07:33 | XR ---
EXAMINATION TYPE: XR chest 2V DATE OF EXAM: 02/16/2019 COMPARISON: 02/15/2019 HISTORY: Follow-up for pneumonia. TECHNIQUE: Frontal and lateral views of the chest are obtained. FINDINGS: Retrocardiac opacity remains and appears along the bronchi on the lateral image. Pulmonary hyperinflation is seen without flattening of the diaphragms and may relate to good phase of inspirat ion. Chronic interstitial prominence is also seen. Cardiomediastinal silhouette is enlarged. Diffuse osseous demineralization. Cholecystectomy clips. IMPRESSION: Retrocardiac left basilar airspace disease appears along the bronchi and could relate to bronchitis or pneumonia in the proper clinical setting.
[2019-02-16] MEDS: METOPROLOL SUCCINATE (ER) 50 MG TAB.ER.24H PO SCH (08:38)
[2019-02-16 08:41] VITALS: RESP 16; TEMP 96
[2019-02-16] MEDS ORDERED: FUROSEMIDE 20 MG TAB PO SCH (09:00)
[2019-02-16] MEDS ORDERED: LISINOPRIL 10 MG TAB PO SCH (09:00)
[2019-02-16] MEDS ORDERED: LISINOPRIL 5 MG TAB PO SCH (09:00)
--- NOTE | 2019-02-16 09:30 | PN ---
PROGRESS NOTE Mrs. Vera is an 78-year-old female who presented with atrial fibrillation with rapid ventricular response. Her heart rate is under better control at this time. She is feeling better. Her breathing is stable. She denies any chest pain or dizziness. She denies any palpitation. She is scheduled to undergo AV yancy ablation with permanent pacemaker implantation by Dr. Kang. She underwent an echocardiogram that revealed severe cardiomyopathy with mild mitral and tricuspid regurgitation. In the past her systolic function was normal. It is possible the cardiomyopathy is rate-related cardiomyopathy. She continues to be at this time on the IV Cardizem, Lasix 20 mg daily, Zestril 5 mg daily, metoprolol succinate 50 mg twice a day, Xarelto 15 mg daily, Lipitor 10 mg daily. PHYSICAL EXAMINATION: Blood pressure 126/60 with a heart rate in the 80s. LUNGS: Clear. HEART: Irregular regular. S1, S2. No S3. No rub. ABDOMEN: Soft, nontender, positive bowel sounds, no organomegaly. EXTREMITIES: No edema. LAB DATA: Revealed BUN and creatinine 21 and 0.09, potassium 4.4. IMPRESSION: 1. Atrial fibrillation with rapid ventricular response. 2. Decrease in the ejection fraction could be related to the atrial fibrillation and rapid ventricular response. 3. Prior episode of atrial fibrillation with tachycardia, scheduled for ablation and permanent pacemaker implantation. RECOMMENDATION: I will stop the IV Cardizem. I will increase the dose of her beta fabio. Increase her level of activity. Depending on her progress, further recommendation will be made. MMODL / IJN: [id number] /
[2019-02-16 11:38] LABS: Glucose,Whole Blood 127 mg/dL (75-99)
[2019-02-16] MEDS ORDERED: AZITHROMYCIN 500 MG TAB PO SCH (12:00)
[2019-02-16 13:48] VITALS: BP 103/52; PULSE 106
[2019-02-16] MEDS ORDERED: METOPROLOL SUCCINATE (ER) 50 MG TAB.ER.24H PO SCH (16:00)
--- NOTE | 2019-02-18 13:18 | P.DS ---
Providers Date of admission: 02/15/19 13:01 Expected date of discharge: 02/16/19 Attending physician: Jarret Madrid Consults: 02/15/19 12:41 Consult Physician Stat Consulting Provider: [facility] Consult Reason/Comments: A. fib with rapid ventricular response Do you want consulting provider notified?: Yes Primary care physician: [facility] Hospital Course: Chief Complaint: Heart racing Hospital course: This is a pleasant 78-year-old patient of Dr. Dioni romero. Chronic stable medical conditions include hypertension, diabetes, hypothyroid, mild cognitive impairment. Patient has a known history of atrial fibrillation for which she is on Xarelto. Patient today felt her heart racing and slight discomfort of the chest and fluttering sensation. Minimal lightheadedness. Decided to come in. Found to be in atrial fibrillation with rapid ventricular rate. Patient was started on Cardizem drip. Cardiology was consulted. She has seen Dr. Kang from EP services in the past. Due for a procedure later this month. Heart rate better controlled before discharge. Symptoms greatly improved. keen for discharge. Consultation: Dr. Silva from cardiology Physical examination: VITAL SIGNS: 96, 88, 16, 126/58, 97% room air GENERAL: Propped up, comfortable EYES: Pupils equal. Conjunctiva normal. HEENT: External appearance of nose and ears normal, oral cavity grossly normal. NECK: JVD not raised; masses not palpable. HEART: Heart sounds irregular; no edema. LUNGS: Respiratory rate normal; clear to auscultation. ABDOMEN: Soft, nontender, liver spleen not palpable, no masses palpable. PSYCH: Alert and oriented x3; mood and affect normal. Patient is forgetful MUSCULOSKELETAL: Evidence of OA in the hands INVESTIGATIONS, reviewed in the clinical context: Potassium 4.4 bun 20 creatinine 1.09 Previous testing: White count 18.1 hemoglobin 13.805 bun 18 and creatinine 1.076 Troponin I negative EKG tracing personally reviewed by me-atrial fibrillation with rapid ventricular rate about 160 Chest x-ray film personally reviewed by me-cardiomegaly and some venous prominence 2-D echo-atrial fibrillation, EF 20-25% Assessment: -Persistent atrial fibrillation now with a rapid ventricular rate -Cardiomyopathy EF 20-25% could be arrhythmia induced, and or hypertensive heart disease -Essential hypertension -Diabetes mellitus type 2 chronically on insulin -Hypothyroid -Mild cognitive impairment Disposition: Home Patient Condition at Discharge: Stable Plan - Discharge Summary Discharge Rx Participant: No New Discharge Prescriptions: New Metoprolol Succinate (ER) [Toprol XL] 50 mg PO TID #90 tab.er.24h Continue Furosemide [Lasix] 20 mg PO DAILY Levothyroxine Sodium [Synthroid] 25 mcg PO DAILY Atorvastatin [Lipitor] 10 mg PO HS Cholecalciferol [Vitamin D3 (25 Mcg = 1000 Iu)] 2,000 unit PO DAILY metFORMIN HCL [Glucophage] 500 mg PO BID-W/MEALS Insulin Glargine,Hum.rec.anlog [Lantus Solostar] 12 unit SQ HS Insulin Lispro [humaLOG Kwikpen] 2 unit SQ AC-TID Rivaroxaban [Xarelto] 15 mg PO W/SUPPER Changed Lisinopril [Zestril] 5 mg PO DAILY #0 Discharge Medication List Furosemide [Lasix] 20 mg PO DAILY 07/14/13 [History] Atorvastatin [Lipitor] 10 mg PO HS 07/18/13 [History] Levothyroxine Sodium [Synthroid] 25 mcg PO DAILY 07/18/13 [History] Cholecalciferol [Vitamin D3 (25 Mcg = 1000 Iu)] 2,000 unit PO DAILY 09/22/18 [History] Insulin Glargine,Hum.rec.anlog [Lantus Solostar] 12 unit SQ HS 09/22/18 [History] Insulin Lispro [humaLOG Kwikpen] 2 unit SQ AC-TID 09/22/18 [History] metFORMIN HCL [Glucophage] 500 mg PO BID-W/MEALS 09/22/18 [History] Rivaroxaban [Xarelto] 15 mg PO W/SUPPER 02/15/19 [History] Lisinopril [Zestril] 5 mg PO DAILY #0 02/16/19 [Rx] Metoprolol Succinate (ER) [Toprol XL] 50 mg PO TID #90 tab.er.24h 02/16/19 [Rx] Follow up Appointment(s)/Referral(s): Ap Romero DO [Primary Care Provider] - 1-2 days (Spoke to sales receptionist. Office will call with appointment time) Balta Perez MD [STAFF PHYSICIAN] - 03/07/19 11:00 am (post pacemaker (to be done on the ). Device check and follow up) Patient Instructions/Handouts: A-fib (Atrial Fibrillation) (DC) Discharge Disposition: HOME SELF-CARE
== END 2019-02-16 16:30 | disposition home or self-care (01) ==
LOC: EC 10:56 → 3SCARD 13:01
PROVIDERS: ADMIT Hospitalist; ATTEND Hospitalist
DX: I48.19 Other persistent atrial fibrillation (principal); I42.8 Other cardiomyopathies; I10 Essential (primary) hypertension; E11.9 Type 2 diabetes mellitus without complications; E03.9 Hypothyroidism, unspecified; G31.84 Mild cognitive impairment of uncertain or unknown etiology; I25.10 Atherosclerotic heart disease of native coronary artery without angina pectoris; I08.1 Rheumatic disorders of both mitral and tricuspid valves; Z79.01 Long term (current) use of anticoagulants; Z79.899 Other long term (current) drug therapy; Z79.890 Hormone replacement therapy; Z79.4 Long term (current) use of insulin; Z98.890 Other specified postprocedural states
CPT/HCPCS: 96366 ×3; 96376; 96368; 96365; 96375; 99291; 36415; 93005; 80053; 80048; 83605; 83735; 84443; 84484; 85025; 85610; 85730; 87040; 71046 ×2; G0378 ×2; C8929; J0456; J0696; Q9950; 93306

== ENCOUNTER 2019-03-03 13:46 | Day surgery (SDC) | payer MEDICARE, OTHER ==
[~2019-03-03 13:46] MED LIST: ceFAZolin 1,000 MG in SODIUM CHLORIDE 0.9% IRRIGATIO 250 ML IRRIGATION ONE
[2019-03-03] MEDS: SODIUM CHLORIDE 0.9% 1,000 ML IV SCH ×2 (14:25→21:46)
[2019-03-03 14:39] LABS: Glucose,Whole Blood 102 mg/dL (75-99)
[2019-03-03] MEDS ORDERED: fentaNYL (PF) 50 MCG/ML 2 ML AMP ONE (16:10)
[2019-03-03] MEDS ORDERED: MIDAZOLAM 2 MG/2 ML VIAL ONE (16:10)
[2019-03-03] MEDS ORDERED: IOPAMIDOL-250 50ML BTL IV ONE (16:25)
[2019-03-03] MEDS ORDERED: LIDOCAINE 1% INJ 10MG/ML (20 ML MDV) ONE (16:46)
[2019-03-03] MEDS ORDERED: LIDOCAINE 1% INJ 10MG/ML (20 ML MDV) SQ ONE ×3 (17:04→17:12)
[2019-03-03] MEDS ORDERED: ACETAMINOPHEN TAB 325 MG TAB PO PRN (18:11)
[2019-03-03] MEDS ORDERED: HYDROcodone/APAP 5-325MG 1 EACH TAB PO PRN (18:11)
[2019-03-03] MEDS ORDERED: ACETAMINOPHEN IV (For NPO) 1,000 MG in EMPTY BAG 1 BAG IVPB ONE (20:00)
--- NOTE | 2019-03-03 20:58 | PCN ---
PROCEDURE NOTE Елена Vera is an 78-year-old female with atrial fibrillation. She underwent atrial fibrillation ablation in 2013. She has had a recent recurrence and has failed amiodarone. She has also failed rate-control medications with high-dose beta blockers. Therefore she was brought in for a biventricular pacemaker prior to proceeding with an AV node ablation. Patient was brought to the EP lab in a fasting state. Written informed consent was obtained prior to the procedure. The left shoulder area was prepped and draped as per protocol. Lidocaine 1% was used for local anesthesia. A 4 cm incision was made parallel to the deltopectoral groove, about 1.5 cm medial to it. The incision was carried down to the level of the pectoralis muscle. A subfascial pocket was made. Hemostasis was assured. The left axillary vein was accessed at 2 separate points under fluoroscopy, and via appropriately sized introducer sheaths, 3 leads were positioned. The right atrial lead was a 53 cm Medtronic model number 4574, serial number [id number]. The patient was in atrial fibrillation at the start of the study. Pacing impedance 768 ohms. The RV lead was positioned in the RV apex. This was a Medtronic model number 4074, 58 cm in length, with serial number [id number]. This passive lead was positioned in the RV apex. R-waves 15 mV. Pacing impedance ohms, pacing threshold 0.3 V at 0.5 milliseconds. Ten-volt test was negative. Access into the coronary sinus was very difficult, and despite multiple attempts, the coronary sinus could not be accessed. Therefore His bundle pacing was performed. This was a very long procedure. His bundle mapping revealed good His bundle signal with a current of injury; however, the thresholds were always elevated and were in the range of about 2.5 V at 1 millisecond. However, when the His bundle sheath was withdrawn, the thresholds would rise at least one volt. This was a repeated finding. Excellent His bundle signals with current of injury were noted. High thresholds were noted. Thresholds were higher when the sheath was withdrawn. Therefore, after several hours of very detailed mapping, we were able to get a small His bundle signal but with much better thresholds, and when the sheath was withdrawn, thresholds were around 1.5 to 1.7 V. However, this implantation of this lead to secure good thresholds took almost 2 hours, despite the fact that we had excellent His bundle signals all along. All leads were then secured to the underlying pectoralis muscle using 2 nonabsorbable sutures. Pocket was irrigated with antibiotic solution. Leads were connected to the generator, [employer] SIGNAL MAINTAINER HELPER pacemaker MRI, model number W1TR02, serial number [id number]. Leads and the generator were then placed in the subfascial pocket. The wound was closed in 3 layers and dressed per protocol. RESULTS: 1. Successful implantation of His bundle SIGNAL MAINTAINER HELPER for management of atrial fibrillation with RVR, prior to proceeding with AV node ablation. 2. This was a long procedure on account of high His bundle thresholds despite obtaining good His bundle signals, and the total procedure was over 3 hours. The patient tolerated the procedure well without any acute complications. PLAN: Continue beta blockers 100 mg b.i.d., and after about 4 to 6 weeks, once we ensure stable thresholds of the His lead, AV node modification will be performed. YARITZA / AARONN: [id number] /
[2019-03-03] MEDS ORDERED: INSULIN DETEMIR (LEVEMIR) 100 UNIT/ML SYR SQ SCH (21:00)
[2019-03-03] MEDS ORDERED: ATORVASTATIN 10 MG TAB PO SCH (21:00)
[2019-03-03 21:03] LABS: Glucose,Whole Blood 178 mg/dL (75-99)
[2019-03-03] MEDS ORDERED: ONDANSETRON 4 MG/2 ML VIAL IVP PRN (21:06)
[2019-03-03] MEDS: METOPROLOL SUCCINATE (ER) 50 MG TAB.ER.24H PO SCH (23:18)
[2019-03-04] MEDS ORDERED: LEVOTHYROXINE 25 MCG TAB PO SCH (06:30)
[2019-03-04 06:44] LABS: Glucose,Whole Blood 90 mg/dL (75-99)
--- NOTE | 2019-03-04 07:04 | XR ---
EXAMINATION TYPE: XR chest 2V DATE OF EXAM: 03/04/2019 CLINICAL HISTORY: Lead placement check TECHNIQUE: Frontal and lateral projections were obtained. COMPARISON: 02/16/2019 FINDINGS: Heart size is borderline prominent. Pacemaker is placed over the left chest. 3 leads are pr esent. No pneumothorax is evident. Pulmonary vasculature is normal. There is some silhouetting of the mid left diaphragm. This has sligh t improvement from comparison may be related atelectasis. Some left upper lobe infiltrates not exclud ed. IMPRESSION: 1. No pneumothorax post pacemaker placement.
[2019-03-04 08:04] VITALS: RESP 18
[2019-03-04] MEDS: INSULIN ASPART (NovoLOG) 100 UNIT/ML VIAL SQ SCH ×2 (08:17→11:57)
[2019-03-04] MEDS ORDERED: LISINOPRIL 5 MG TAB PO SCH (09:00)
[2019-03-04] MEDS ORDERED: FUROSEMIDE 20 MG TAB PO SCH (09:00)
[2019-03-04] MEDS: METOPROLOL SUCCINATE (ER) 50 MG TAB.ER.24H PO SCH (09:48)
[2019-03-04 11:41] LABS: Glucose,Whole Blood 122 mg/dL (75-99)
[2019-03-04 12:09] VITALS: BP 130/84; PULSE 90; TEMP 98.5
--- NOTE | 2019-03-04 13:16 | P.DS ---
Providers Attending physician: Genaro Kang Primary care physician: [facility] Course: Patient is doing well. Minimal discomfort. 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 Plan Change metoprolol to 100 mg twice daily, succinate If leads are stable and thresholds were excellent after 4-6 weeks and we'll proceed with AV junction modification She will go home today on the new dose of metoprolol Anticoagulation to continue Patient Condition at Discharge: Stable Plan - Discharge Summary Discharge Rx Participant: No New Discharge Prescriptions: New Metoprolol Succinate (ER) [Toprol XL] 100 mg PO BID #180 tab Discontinued Metoprolol Succinate (ER) [Toprol XL] 50 mg PO TID #90 tab.er.24h No Action Furosemide [Lasix] 20 mg PO DAILY Levothyroxine Sodium [Synthroid] 25 mcg PO DAILY Atorvastatin [Lipitor] 10 mg PO HS Cholecalciferol [Vitamin D3 (25 Mcg = 1000 Iu)] 2,000 unit PO DAILY metFORMIN HCL [Glucophage] 500 mg PO BID-W/MEALS Insulin Glargine,Hum.rec.anlog [Lantus Solostar] 12 unit SQ HS Insulin Lispro [humaLOG Kwikpen] 2 unit SQ AC-TID Rivaroxaban [Xarelto] 15 mg PO W/SUPPER Lisinopril [Zestril] 5 mg PO DAILY #0 Discharge Medication List Furosemide [Lasix] 20 mg PO DAILY 07/14/13 [History] Atorvastatin [Lipitor] 10 mg PO HS 07/18/13 [History] Levothyroxine Sodium [Synthroid] 25 mcg PO DAILY 07/18/13 [History] Cholecalciferol [Vitamin D3 (25 Mcg = 1000 Iu)] 2,000 unit PO DAILY 09/22/18 [History] Insulin Glargine,Hum.rec.anlog [Lantus Solostar] 12 unit SQ HS 09/22/18 [History] Insulin Lispro [humaLOG Kwikpen] 2 unit SQ AC-TID 09/22/18 [History] metFORMIN HCL [Glucophage] 500 mg PO BID-W/MEALS 09/22/18 [History] Rivaroxaban [Xarelto] 15 mg PO W/SUPPER 02/15/19 [History] Lisinopril [Zestril] 5 mg PO DAILY #0 02/16/19 [Rx] Metoprolol Succinate (ER) [Toprol XL] 100 mg PO BID #180 tab 03/03/19 [Rx] Follow up Appointment(s)/Referral(s): Balta Perez MD [STAFF PHYSICIAN] - 1 Week (I'll up in the device clinic in one week Follow up with doctor tomorrow as previously scheduled or in 3 months) Patient Instructions/Handouts: Pacemaker (DC) Activity/Diet/Wound Care/Special Instructions: PATIENT EDUCATION MATERIAL Instructions following a heart rhythm device implant. 1. Keep dressing DRY for 5 DAYS. You may cover the area with Saran or Cling Wrap, prior to a shower. 2. The dressing will be removed in the Device Clinic at [facility]. Absorbable sutures were used to close the wound. 3. Avoid raising the left arm above the shoulder level. 4 week restriction 4. Avoid arm movements, like backscratching, rubbing the head, or pulling on a cord. 4 weeks restriction 5. Gentle range of motion movements of the shoulder, closest to the incision should be performed to avoid a frozen shoulder. (Pendulum exercises of the shoulder) 6. The opposite arm may be used freely. 7. Avoid driving for 7 days. 8. Avoid activities such as golfing, swimming, weed whacking, lifting more than 10 pounds weight, bowling, gymnastics and weight training/lifting. (6 weeks restriction) 9. Activities such as wood chopping with an axe, pull-ups in the gymnasium, power lifting, arc-welding, being close to home induction cooktops will always be a problem. 10. Arm sling is only a reminder not to raise the arm above the head. You do not need to keep the arm completely immobilized. Your free to move the arm and use it and for normal activities. In case of any problems, please call [facility] [place], @ [phone], Attention: Device Clinic Device clinic follow-up in 5 days Follow-up with primary tour narrator in 2-3 months Discharge Disposition: HOME SELF-CARE
--- NOTE | 2019-03-04 13:19 | P.PRLE ---
RE: Елена Vera Dear Dr. Heather Christiansen underwent implantation of a His bundle CRP prior to proposed AV junction ablation for management of refractory atrial fibrillation with RVR despite medical treatment Lifelong anticoagulation to continue She will continue to follow with you and Dr. Crisostomo as before Thank you for entrusting me with the care of the patient Warm regards Sincerely Genaro Kang
[2019-03-04 14:22] VITALS: BMI 28.1
[2019-03-04] MEDS ORDERED: RIVAROXABAN 15 MG TAB PO SCH (17:30)
[2019-03-05] MEDS ORDERED: metFORMIN 500 MG TAB PO SCH (17:30)
== END 2019-03-04 15:46 | disposition home or self-care (01) ==
LOC: CATHEP 13:46 → 1SOBS 19:53 → CATHEP 03-04 15:46
PROVIDERS: ATTEND Internal Medicine Clinical Cardiac Electrophysiology
DX: I48.19 Other persistent atrial fibrillation (principal); I49.5 Sick sinus syndrome; I10 Essential (primary) hypertension; E78.5 Hyperlipidemia, unspecified; Z79.4 Long term (current) use of insulin; Z79.01 Long term (current) use of anticoagulants; Z79.890 Hormone replacement therapy; Z79.899 Other long term (current) drug therapy
CPT/HCPCS: 33225; 33208; 71046; C1769 ×5; C1892 ×2; C1730; C1898 ×2; C2621; J2250; J0690 ×2; J2405; J2001; J3010; Q9966

== ENCOUNTER → 2019-03-07 | Day surgery (SDC) | payer MEDICARE, OTHER | LOC: CATHEP 14:24 | PROVIDERS: ATTEND Internal Medicine Clinical Cardiac Electrophysiology | DX: Z53.9 Procedure and treatment not carried out, unspecified reason (principal) ==

== ENCOUNTER 2019-05-02 11:58 | Day surgery (SDC) | payer MEDICARE, OTHER ==
[2019-04-27 17:24] VITALS: BMI 27.8
[2019-05-02] MEDS ORDERED: SODIUM CHLORIDE 0.9% 500 ML 500 ML IV ONE (12:22)
[2019-05-02] MEDS ORDERED: RIVAROXABAN 15 MG TAB PO STA (13:34)
[2019-05-02] MEDS ORDERED: ePHEDrine SULFATE/0.9% NACL/PF 50 MG/5 ML SYRINGE IV ONE (15:25)
[2019-05-02] MEDS ORDERED: PROPOFOL 10 MG/ML 20 ML VIAL IV ONE (15:25)
[2019-05-02] MEDS ORDERED: MIDAZOLAM 2 MG/2 ML VIAL ONE (15:25)
[2019-05-02] MEDS ORDERED: ATROPINE SULFATE 0.1 MG/ML 10ML SYRINGE ONE (15:25)
[2019-05-02] MEDS ORDERED: WATER FOR INJECTION, STERILE 10 ML VIAL IV ONE (15:25)
[2019-05-02] MEDS ORDERED: HEPARIN SODIUM,PORCINE 5,000 UNIT/ML 1 ML VIAL ONE (15:25)
[2019-05-02] MEDS ORDERED: fentaNYL (PF) 50 MCG/ML 2 ML AMP ONE (15:25)
[2019-05-02] MEDS ORDERED: LIDOCAINE 1% INJ 10MG/ML (20 ML MDV) ONE (15:33)
[2019-05-02] MEDS ORDERED: LIDOCAINE 1% INJ 10MG/ML (20 ML MDV) SQ ONE (15:53)
[2019-05-02] MEDS ORDERED: HEPARIN SODIUM (1,000 UNIT/ML) 1,000 UNIT in SODIUM CHLORIDE 0.9% 1,000 ML IRRIGATION ONE (17:26)
--- NOTE | 2019-05-02 17:37 | P.PCN ---
Preoperative Diagnosis: Procedure: Device interrogation with reprogramming prior to the procedure Cardioversion for atrial fibrillation AV Node Ablation/modification. Device interrogation with reprogramming postprocedure Patient was brought to the EP lab in a fasting state. Written, informed consent was obtained prior to the procedure. Access was obtained, sheath placed in right femoral vein. 1. Preprocedure device interrogation and reprogramming Device interrogation with reprogramming performed. Rate responsiveness was turned off and the pacing rate was reprogrammed to a backup mode prior to ablation. Tachycardia detections turned off. Lead impedance is documented, sensing and pacing thresholds performed prior to the procedure Backup pacing, VVI 40 bpm 2. Electrical cardioversion A 200 J biphasic shock was used to cardiovert the patient to sinus rhythm Thereafter mapping of the AV node was performed, His bundle identified and RF ablation performed Patient was on therapeutic anticoagulation 3. AV node ablation A Mapping/Ablation catheter was placed and right-sided AV node radiofrequency ablation/modification was performed. Complete heart block was achieved with occasional junctional escape rhythm above 40 bpm 4. Device programming postprocedure Post ablation, device reprogramming was performed. Base Pacing rate was programmed to 90 bpm. Patient's device was reprogrammed and the interrogated. RF mode turned on Vascular sheaths were removed at the end of the procedure, hemostasis was assured, the patient was then transferred to recovery room/telemetry in stable condition. Conclusions: Successful ablation of the AV node. Plan: Pacing at 90 bpm for at least 3 weeks. Telemetry monitoring for 24-48 hours. Continue anticoagulation. Patient tolerated the procedure well Increase procedural services This was a very difficult AV node ablation with a deep AV node and his RF ablation 40 W with good contact force would result in RVR but no AV block. Finally even after cardioversion it took prolonged RF just below the His bundle lead to cause complete AV node ablation In the process of ablating so close to the His bundle His bundle pacing became ineffective with non-capture at high output on the His bundle lead Continue pacing 90 to 1:30 bpm for the next 3 weeks, RV pacing In the future it may be possible to implant a His bundle lead further distally and higher, Blood, compared to the current His bundle lead
[2019-05-02] MEDS ORDERED: ACETAMINOPHEN TAB 325 MG TAB PO PRN (17:38)
[2019-05-02] MEDS ORDERED: HYDROcodone/APAP 5-325MG 1 EACH TAB PO PRN (17:38)
[2019-05-02] MEDS ORDERED: ACETAMINOPHEN IV (For NPO) 1,000 MG in EMPTY BAG 1 BAG IVPB ONE (17:38)
--- NOTE | 2019-05-02 17:47 | P.PCN ---
Preoperative Diagnosis: Increase procedure services Patient's AV node ablation was very difficult. We tried our best to avoid the His bundle lead area, mapped the His bundle cloud with 3-D mapping, started ablating in the low septum just above the coronary sinus. RF ablation up to 35 warts at good contact force proximal to the His bundle area and fell below the His bundle lead did not result in a slow junctional rhythm or complete heart block. RVR was noted in multiple areas during RF ablation but it did not result in AV node modification ablation Finally Performed electrical cardioversion and even then he was unable to perform a successful ablation until he was extremely close and chest caudal to the His bundle lead screw As a result non-capture was noted with high output His bundle pacing which is an expected effect Patient was programmed VVIR 90 to 1:30 bpm for the next 3 weeks Xarelto was continued
[2019-05-02] MEDS: SODIUM CHLORIDE 0.9% 1,000 ML IV SCH (18:30)
[2019-05-02 20:40] LABS: Glucose,Whole Blood 164 mg/dL (75-99)
[2019-05-02] MEDS: METOPROLOL SUCCINATE (ER) 50 MG TAB.ER.24H PO SCH (20:47)
[2019-05-02] MEDS ORDERED: ATORVASTATIN 20 MG TAB PO SCH (21:00)
[2019-05-02] MEDS ORDERED: INSULIN DETEMIR (LEVEMIR) 100 UNIT/ML SYR SQ SCH (21:00)
[2019-05-02 23:45] VITALS: RESP 18
[2019-05-03] MEDS: SODIUM CHLORIDE 0.9% 1,000 ML IV SCH (01:48)
[2019-05-03] MEDS ORDERED: LEVOTHYROXINE 25 MCG TAB PO SCH (06:30)
[2019-05-03 07:02] LABS: Glucose,Whole Blood 137 mg/dL (75-99)
[2019-05-03] MEDS ORDERED: metFORMIN 500 MG TAB PO SCH (07:30)
[2019-05-03] MEDS: METOPROLOL SUCCINATE (ER) 50 MG TAB.ER.24H PO SCH (08:15)
[2019-05-03 08:25] VITALS: BP 133/76; PULSE 91; TEMP 97.6
[2019-05-03] MEDS ORDERED: FUROSEMIDE 20 MG TAB PO SCH (09:00)
[2019-05-03] MEDS ORDERED: LISINOPRIL 5 MG TAB PO SCH (09:00)
--- NOTE | 2019-05-03 09:55 | P.DS ---
Providers Attending physician: Genaro Kang Primary care physician: Ap Romero Assessment: Patient is resting comfortably in bed no dizziness lightheadedness palpitations She's been ablating the hallways Groin is healing well no hematoma no tenderness in the right groin Breath sounds are clear no rhonchi no crackles Heart sounds are normal no murmurs or gallops no rubs Extremity is warm no edema Abdomen soft nontender Impression AV node ablation for A. fib with RVR 100% RV paced now urine RF lesion had to be applied close to the His bundle lead. This was the only area that resultant AV block Lesions applied well below the His bundle lead between the [place] sinus and the His bundle lead were unsuccessful despite good contact force and high powered Plan Continue anticoagulation Stop amiodarone Patient should be compliant with her medications. According to her she does not take her medications regularly, as prescribed and gets very upset when he tells her to do so Surgery he has not mentioned this to her extrusion technician either because it really upsets his when he does so Hopefully she will continue to take Xarelto for stroke prevention and I emphasized this once again this morning Patient Condition at Discharge: Stable Plan - Discharge Summary Discharge Rx Participant: No New Discharge Prescriptions: Continue Furosemide [Lasix] 20 mg PO DAILY Levothyroxine Sodium [Synthroid] 25 mcg PO DAILY Cholecalciferol [Vitamin D3 (25 Mcg = 1000 Iu)] 2,000 unit PO DAILY metFORMIN HCL [Glucophage] 500 mg PO BID-W/MEALS Insulin Glargine,Hum.rec.anlog [Lantus Solostar] 9 unit SQ HS Insulin Lispro [humaLOG Kwikpen] 5 unit SQ QAM Rivaroxaban [Xarelto] 15 mg PO W/SUPPER Atorvastatin [Lipitor] 20 mg PO HS Metoprolol Succinate (ER) [Toprol XL] 150 mg PO BID Lisinopril [Zestril] 5 mg PO DAILY Discharge Medication List Furosemide [Lasix] 20 mg PO DAILY 07/14/13 [History] Levothyroxine Sodium [Synthroid] 25 mcg PO DAILY 07/18/13 [History] Cholecalciferol [Vitamin D3 (25 Mcg = 1000 Iu)] 2,000 unit PO DAILY 09/22/18 [History] Insulin Glargine,Hum.rec.anlog [Lantus Solostar] 9 unit SQ HS 09/22/18 [History] Insulin Lispro [humaLOG Kwikpen] 5 unit SQ QAM 09/22/18 [History] metFORMIN HCL [Glucophage] 500 mg PO BID-W/MEALS 09/22/18 [History] Rivaroxaban [Xarelto] 15 mg PO W/SUPPER 02/15/19 [History] Atorvastatin [Lipitor] 20 mg PO HS 04/27/19 [History] Lisinopril [Zestril] 5 mg PO DAILY 04/27/19 [History] Metoprolol Succinate (ER) [Toprol XL] 150 mg PO BID 04/27/19 [History] Follow up Appointment(s)/Referral(s): Balta Perez MD [STAFF PHYSICIAN] - 2 Weeks (Device clinic follow-up in [address] Perez as previously scheduled) Activity/Diet/Wound Care/Special Instructions: Post EP study - Ablation instructions 1. Keep access sites dry for 2 days. 2. No heavy lifting or straining for 2 days. 3. Avoid bending the hips repeatedly for 2 days. 4. You may go up and down stairs slowly Call if the following is noted 1. Bleeding, increasing swelling or pain at the access sites. 2. Increasing chest discomfort, especially upon taking a deep breath. 3. Increasing shortness of breath, at rest or with exertion. 4. Undue cough / phlegm 5. Difficulty or pain while swallowing. 6. Pain or change in color in the extremities. 7. Fever, chills, rigors. 8. Increasing headache or neurologic symptoms. 9. Dizziness, fainting, palpitations Discharge Disposition: HOME SELF-CARE
--- NOTE | 2019-05-03 12:55 | ECHOF ---
Referral Reason:AFIB MEASUREMENTS -------- HEIGHT: 157.5 cm WEIGHT: 71.7 kg BP: FINDINGS -------- Sinus rhythm. Limited Study There is no pericardial effusion. CONCLUSIONS -------- 1. Sinus rhythm. 2. Limited Study 3. There is no pericardial effusion. LEGAL DOCUMENT ASSISTANT: Tamara Darden RHETT
[2019-05-03] MEDS ORDERED: RIVAROXABAN 15 MG TAB PO SCH (17:30)
== END 2019-05-03 11:07 | disposition home or self-care (01) ==
LOC: CATHEP 11:58 → 1SOBS 17:25 → CATHEP 05-03 11:07
PROVIDERS: ATTEND Internal Medicine Clinical Cardiac Electrophysiology
DX: I48.19 Other persistent atrial fibrillation (principal); I49.5 Sick sinus syndrome; I10 Essential (primary) hypertension; E78.5 Hyperlipidemia, unspecified; E11.9 Type 2 diabetes mellitus without complications; Z79.899 Other long term (current) drug therapy; Z79.01 Long term (current) use of anticoagulants; Z79.890 Hormone replacement therapy; Z79.4 Long term (current) use of insulin; Z87.442 Personal history of urinary calculi
CPT/HCPCS: 93308; 92960; 93650; C1894; C1769 ×2; C1893; C1732; J2250; J1644 ×2; J0690; J2001; J0461; J3010; J2704

== ENCOUNTER 2019-05-04 06:24 | Emergency (ER) | payer MEDICARE, OTHER ==
[2019-05-04 06:31] VITALS: TEMP 97.9
[2019-05-04] MEDS ORDERED: ONDANSETRON 4 MG/2 ML VIAL IVP STA (06:59)
[2019-05-04] MEDS ORDERED: MORPHINE SULFATE 4 MG/ML SYRINGE IVP STA (06:59)
--- NOTE | 2019-05-04 07:33 | ED ---
General Adult HPI - General Chief complaint: Abdominal Pain Stated complaint: AbdPain/Nausea Post Cardiac Surgery Time Seen by Provider: 05/04/19 06:33 Source: patient, family, RN notes reviewed Mode of arrival: wheelchair Limitations: no limitations - History of Present Illness Initial comments: 78-year-old female status post abrasion 2 days ago presents to the emergency department for a chief complaint of nausea vomiting diarrhea. Patient states th at yesterday she had about 3 episodes of diarrhea. States that after she had the diarrhea she started to have some abdominal pain and cramping. Patient states she has also vomited 2 times. Patient does admit to mild abdominal pain. Patient denies chest pain or shortness of breath.Patient has no other complaints at this time including shortness of breath, chest pain, headache, or visual changes. - Related Data Home Medications Medication Instructions Recorded Confirmed Furosemide [Lasix] 20 mg PO DAILY 07/14/13 05/02/19 Levothyroxine Sodium [Synthroid] 25 mcg PO DAILY 07/18/13 05/02/19 Cholecalciferol [Vitamin D3 (25 2,000 unit PO DAILY 09/22/18 05/02/19 Mcg = 1000 Iu)] Insulin Glargine,Hum.rec.anlog 9 unit SQ HS 09/22/18 05/02/19 [Lantus Solostar] Insulin Lispro [humaLOG Kwikpen] 5 unit SQ QAM 09/22/18 05/02/19 metFORMIN HCL [Glucophage] 500 mg PO BID-W/MEALS 09/22/18 05/02/19 Rivaroxaban [Xarelto] 15 mg PO W/SUPPER 02/15/19 05/02/19 Atorvastatin [Lipitor] 20 mg PO HS 04/27/19 05/02/19 Lisinopril [Zestril] 5 mg PO DAILY 04/27/19 05/02/19 Metoprolol Succinate (ER) [Toprol 150 mg PO BID 04/27/19 05/02/19 XL] Allergies Allergy/AdvReac Type Severity Reaction Status Date / Time No Known Allergies Allergy Verified 05/04/19 06:31 Review of Systems ROS Statement: Those systems with pertinent positive or pertinent negative responses have been documented in the HPI. ROS Other: All systems not noted in ROS Statement are negative. Past Medical History Past Medical History: Atrial Fibrillation, Diabetes Mellitus Additional Past Medical History / Comment(s): SEE DR TERESA'S H&P, hx kidney stones History of Any Multi-Drug Resistant Organisms: None Reported Past Surgical History: Breast Surgery, Joint Replacement, Pacemaker Additional Past Surgical History / Comment(s): removal of kidney stones, rafaela knee replacement, rt breast lumpectomy, rafaela cataracts Past Anesthesia/Blood Transfusion Reactions: No Reported Reaction Type of Cardiac Device: Permanent Pacemaker Device Placement Date:: 03/03/19 Past Psychological History: No Psychological Hx Reported Smoking Status: Never smoker Past Alcohol Use History: None Reported Past Drug Use History: None Reported - Past Family History Father History Unknown: Yes Mother Family Medical History: No Reported History General Exam Limitations: no limitations General appearance: alert, in no apparent distress Head exam: Present: atraumatic Eye exam: Present: normal appearance, PERRL, EOMI. Absent: scleral icterus, conjunctival injection, periorbital swelling ENT exam: Present: normal exam, mucous membranes moist Neck exam: Present: normal inspection, full ROM. Absent: tenderness, meningismu s, lymphadenopathy Respiratory exam: Present: normal lung sounds bilaterally. Absent: respiratory distress, wheezes, rales, rhonchi, stridor Cardiovascular Exam: Present: regular rate, normal rhythm, normal heart sounds. Absent: systolic murmur, diastolic murmur, rubs, gallop, clicks GI/Abdominal exam: Present: soft, tenderness (Minimal generalized abdominal tenderness, no guarding or rebound. Abdomen is soft), normal bowel sounds. Absent: distended, guarding, rebound, rigid Extremities exam: Present: other (BP pulse 2+ in the right lower extremity. Right groin does not have any erythema or mass palpated.) Course Vital Signs 05/04/19 05/04/19 05/04/19 06:28 07:31 08:00 Temperature 97.9 F Pulse Rate 91 90 85 Respiratory 18 20 20 Rate Blood Pressure 121/71 118/70 O2 Sat by Pulse 95 99 99 Oximetry 05/04/19 09:00 Temperature Pulse Rate Respiratory 20 Rate Blood Pressure O2 Sat by Pulse 99 Oximetry EKG Findings - EKG Comments: EKG Findings:: Ventricular paced rhythm, ventricular rate 91, QRS 158, QTC 533 Medical Decision Making - Medical Decision Making Vitals are stable. Patient has minimal generalized abdominal tenderness on exam. No vomiting in the emergency department. CBC reveals a white blood cell count of 15.4 which is likely reactive status post ablation 2 days ago. CMP unremarkable. Patient is status post cholecystectomy. Patient does have 2+ k etones in the urine, Patient was given fluids. Urine culture pending. No history of dysuria or fevers. Given patient received a cardiac ablation with access through the right groin computed tomography scan was ordered after patient was evaluated by Dr Plascencia. CT did show fat stranding anterior aspect of the upper right thigh overlying femoral neurovascular bundle. On exam there is no evidence of cellulitis. This is reactive to recent catheterization. Patient also has several incidental findings. There is mild circumferential wall thickening on the right side of the colon to the distal rectum. Possibly nonspecific colitis. Some mild patchy hypoenhancement in the upper pole of the left kidney, no pyelonephritis history or urinalysis. There is a dilated duct at 1.1 cm however patient does not have any right upper quadrant pain. Bilirubin is baseline. Alkaline phosphatase is normal limits. There may also be abnormal endometrial wall thickening and recommend pelvic ultrasound. Indeterminate adrenal nodule and trace effusions also noted. I discussed these results with patient and she will follow up with primary care for these. Dr. Plascencia and I did look through the CAT scan and did not see any abnormalities of the aorta. Patient reevaluated, feeling much better at this time. She'll be discharged home to follow up with primary care. She will return here if she has any worsening symptoms. - Lab Data Result diagrams: 05/04/19 07:37 05/04/19 07:37 Lab Results 05/04/19 05/04/19 05/04/19 Range/Units 07:37 07:37 09:00 WBC 15.4 H (3.8-10.6) k/uL RBC 5.09 (3.80-5.40) m/uL Hgb 13.8 (11.4-16.0) gm/dL Hct 43.0 (34.0-46.0) % MCV 84.4 (80.0-100.0) fL MCH 27.1 (25.0-35.0) pg MCHC 32.2 (31.0-37.0) g/dL RDW 13.6 (11.5-15.5) % Plt Count 154 (150-450) k/uL Neutrophils % 89 % Lymphocytes % 6 % Monocytes % 4 % Eosinophils % 1 % Basophils % 0 % Neutrophils # 13.7 H (1.3-7.7) k/uL Lymphocytes # 0.9 L (1.0-4.8) k/uL Monocytes # 0.6 (0-1.0) k/uL Eosinophils # 0.1 (0-0.7) k/uL Basophils # 0.0 (0-0.2) k/uL Sodium 139 (137-145) mmol/L Potassium 4.3 (3.5-5.1) mmol/L Chloride 105 (98-107) mmol/L Carbon Dioxide 20 L (22-30) mmol/L Anion Gap 14 mmol/L BUN 24 H (7-17) mg/dL Creatinine 1.04 (0.52-1.04) mg/dL Est GFR (CKD-EPI)AfAm 59 (>60 ml/min/1.73 sqM) Est GFR (CKD-EPI)NonAf 51 (>60 ml/min/1.73 sqM) Glucose 210 H (74-99) mg/dL Calcium 9.2 (8.4-10.2) mg/dL Total Bilirubin 1.8 H (0.2-1.3) mg/dL AST 51 H (14-36) U/L ALT 31 (4-34) U/L Alkaline Phosphatase 74 (38-126) U/L Total Protein 7.3 (6.3-8.2) g/dL Albumin 4.1 (3.5-5.0) g/dL Amylase 76 (30-110) U/L Lipase 115 (23-300) U/L Urine Color Ruth Urine Appearance Clear (Clear) Urine pH 6.0 (5.0-8.0) Ur Specific [place] 1.015 (1.001-1.035) Urine Protein 1+ H (Negative) Urine Glucose (UA) 2+ H (Negative) Urine Ketones 2+ H (Negative) Urine Blood Small (Negative) Urine Nitrite Negative (Negative) Urine Bilirubin Negative (Negative) Urine Urobilinogen 8.0 (<2.0) mg/dL Ur Leukocyte Esterase Large (Negative) Urine RBC 2 (0-5) /hpf Urine WBC 16 H (0-5) /hpf Ur Squamous Epith Cells 2 (0-4) /hpf Urine Mucus Rare H (None) /hpf Disposition Clinical Impression: Nausea vomiting and diarrhea Disposition: HOME SELF-CARE Condition: Good Instructions (If sedation given, give patient instructions): Acute Nausea and Vomiting (ED), Acute Diarrhea (ED) Additional Instructions: Please drink plenty of fluids. Please follow-up with primary care in 1-2 days. Return to the emergency department if you have any worsening symptoms. Please discuss CAT scan results with primary care. Is patient prescribed a controlled substance at d/c from ED?: No Referrals: Ap Romero DO [Primary Care Provider] - 1-2 days Time of Disposition: 10:29
[2019-05-04 07:57] LABS: Basophils % (A) 0 %; Eosinophils # (A) 0.1 k/uL (0-0.7); Eosinophils % (A) 1 %; HGB 13.8 gm/dL (11.4-16.0); Lymphocytes # (A) 0.9 k/uL (1.0-4.8); Lymphocytes % (A) 6 %; MCH 27.1 pg (25.0-35.0); MCHC 32.2 g/dL (31.0-37.0); MCV 84.4 fL (80.0-100.0); Mean Platelet Volume 9.9; Monocytes # (A) 0.6 k/uL (0-1.0); Monocytes % (A) 4 %; Neutrophils # (A) 13.7 k/uL (1.3-7.7); Neutrophils % (A) 89 %; Platelet Count 154 k/uL (150-450); RBC 5.09 m/uL (3.80-5.40); RDW 13.6 % (11.5-15.5); WBC 15.4 k/uL (3.8-10.6)
[2019-05-04 08:08] LABS: Albumin 4.1 g/dL (3.5-5.0); Calcium 9.2 mg/dL (8.4-10.2); Potassium 4.3 mmol/L (3.5-5.1); Total Bilirubin 1.8 mg/dL (0.2-1.3); Total Protein 7.3 g/dL (6.3-8.2)
--- NOTE | 2019-05-04 08:14 | XR ---
EXAMINATION TYPE: XR chest 2V DATE OF EXAM: 05/04/2019 COMPARISON: 03/04/2019 INDICATION: Abdomen pain TECHNIQUE: Frontal and lateral views of the chest are obtained. FINDINGS: The heart size is at the upper limits of normal for size. The pulmonary vasculature is normal. The lungs are clear. Pacemaker overlies the left chest. IMPRESSION: 1. No acute pulmonary process.
--- NOTE | 2019-05-04 08:15 | XR ---
EXAMINATION TYPE: XR KUB DATE OF EXAM: 05/04/2019 COMPARISON: None INDICATION: Abdomen pain TECHNIQUE: Single view abdomen upright view FINDINGS: Nonspecific bowel gas is present. Air appears to be within the colon. No suspicious differential air fluid levels are present. No free air is present. Psoas margins are normal. Organomegaly is not evide nt. IMPRESSION: 1. Nonspecific abdomen
[2019-05-04 09:52] LABS: Appearance,Urine Clear (Clear); Bilirubin,Urine Negative (Negative); Color,Urine Amber; Glucose,Urine (UA) 2+ (Negative); Ketones,Urine 2+ (Negative); Protein,Urine 1+ (Negative); Specific Gravity,Urine 1.015 (1.001-1.035)
[2019-05-04 09:53] LABS: Blood,Urine Small (Negative); Leukocyte Esterase,Urine Large (Negative); Nitrite,Urine Negative (Negative)
[2019-05-04 09:55] VITALS: PULSE 85
[2019-05-04 09:56] LABS: WBC,Urine 16 /hpf (0-5)
[2019-05-04 09:57] LABS: Mucus,Urine Rare /hpf; RBC,Urine 2 /hpf (0-5); Squamous Epithelial Cell,Urine 2 /hpf (0-4)
--- NOTE | 2019-05-04 10:12 | CT ---
EXAMINATION TYPE: CT abdomen pelvis w con DATE OF EXAM: 05/04/2019 COMPARISON: NONE HISTORY: 78-year-old female generalized abdominal pain, nausea, vomiting TECHNIQUE: Contiguous axial scanning of the abdomen and pelvis following administration of 100 ml Iso amarilys 300 IV contrast. Delayed images through the kidneys and coronal/sagittal reconstructions perform ed. CT DLP: 929.4 mGycm Automated exposure control for dose reduction was used. FINDINGS: Right atrial and right ventricular pacer leads are demonstrated. Heart mildly enlarged without perica rdial effusion. Trace effusions are present with strandy bibasilar areas of atelectasis. Small hiatal hernia. Some mild breathing motion is present in the upper abdomen. No focal liver lesion seen. Bile duct mildly dilated at 1.1 cm, possibly chronic in this patient status post cholecystectomy. The re is also mild diffuse prominence to the main pancreatic duct measuring up to 3.5 mm. Portal venous system is patent. Indeterminate right adrenal nodule measures 1.3 cm there is statistically, this represents a benign a drenal adenoma. Left adrenal gland, spleen with hilar splenule within normal limits. Some subtle patchy hypoenhancement upper pole left kidney on the delayed kidney images likely partial volume averaging given the presence of cortical defects typically seen with prior vascular infectiou s insults. Symmetric uptake and excretion of contrast from both kidneys. Subcentimeter 6 mm cortical hypodensity medial upper pole left kidney too small for accurate CT characterization, likely tiny cys t. 5 mm nonobstructive left renal calculus. Prominent fluid-filled jejunal jejunal loop left midabdomen measuring up to 2.9 cm. No transition poi nt. Probably transient. Mild regional ileus is possible. Mild circumferential wall thickening cecum and ascending colon without pericolonic inflammatory meeks e. This is mild circumferential wall thickening mid to distal rectum as well. No significant stool bu rden. Mild diverticular change along the left side of the colon. Some liquid stool within the rectum and also within the cecum. Normal appendix. No mesenteric or retroperitoneal lymphadenopathy. Bladder partially distended. Uterus anteverted. There seems to be endometrial thickening up to 1.0 cm , sagittal image 67. Small bilateral ovaries. No abnormal fluid collection in the pelvis or pelvic ly mphadenopathy. There is some fat stranding involving the anterior upper right thigh overlying the femoral neurovascu lar bundle. Some of the stranding extends down to the upper superficial femoral artery, reference axi al image 87. Bones: Mild degenerative changes at the hips and SI joints. Hypertrophic facet arthropathy mid to low er lumbar spine with grade 1 anterolisthesis at L4-L5. IMPRESSION: 1. FAT STRANDING ANTERIOR ASPECT OF THE UPPER RIGHT THIGH OVERLYING THE FEMORAL NEUROVASCULAR BUNDLE. FINDINGS COULD BE REACTIVE TO A RECENT CATHETERIZATION OR COULD REPRESENT CELLULITIS. SOME MILD STRA NDING EXTENDS DOWN to the upper right superficial femoral artery. No abscess or abnormal fluid collec tion. 2. Mild circumference wall thickening right side of the colon and mid to distal rectum. Findings coul d relate to incomplete distention or nonspecific mild colitis. 3. Some mild patchy hypoenhancement in the upper pole left kidney could be from partial volume averag ing given cortical defects in this region. Correlate with urinalysis the patient's symptoms to exclud e the possibility of pyelonephritis. 4. Dilated bile duct at 1.1 cm possibly chronic in this patient status post cholecystectomy. This can be confirmed with alkaline phosphatase and bilirubin levels. 5. There may be abnormal endometrial thickening up to 1.0 cm. 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 6. Trace effusions. Correlate for any fluid overload state. 7. An indeterminate 1.3 cm right adrenal nodule. Statistically, this represents a benign adrenal indy kyler. 6-12 month follow-up can be performed with adrenal mass protocol CT.
[2019-05-04] MEDS ORDERED: SODIUM CHLORIDE 0.9% 500 ML 500 ML IV STA (10:27)
[2019-05-04 11:07] VITALS: BP 111/63; RESP 18
== END 2019-05-04 11:08 | disposition home or self-care (01) ==
LOC: EC 06:24
DX: R11.2 Nausea with vomiting, unspecified (principal); R19.7 Diarrhea, unspecified; R82.4 Acetonuria; K63.89 Other specified diseases of intestine; R93.422 Abnormal radiologic findings on diagnostic imaging of left kidney; R10.9 Unspecified abdominal pain; I48.91 Unspecified atrial fibrillation; E11.9 Type 2 diabetes mellitus without complications; Z79.01 Long term (current) use of anticoagulants; Z79.4 Long term (current) use of insulin; Z79.890 Hormone replacement therapy; Z79.899 Other long term (current) drug therapy; Z90.49 Acquired absence of other specified parts of digestive tract; Z98.890 Other specified postprocedural states; Z53.20 Procedure and treatment not carried out because of patient's decision for unspecified reasons
CPT/HCPCS: 36415; 80053; 82150; 83690; 85025; 81001; 87086; 71046; 74018; 74177; 99284; 96374; J2405; Q9967

== ENCOUNTER → 2019-05-20 | Outpatient (CLI) | payer MEDICARE, OTHER ==
--- NOTE | 2019-05-20 16:02 | US ---
EXAMINATION TYPE: US pelvis complete transvag DATE OF EXAM: 05/20/2019 COMPARISON: CT 2019 CLINICAL HISTORY: R93.89 Abnormal Finding other body structures. Thickened endometrium seen on recent CT, post menopausal, 2, para 2 TECHNIQUE: . Transabdominal sonographic images of the pelvis were acquired. Transvaginal sonographi c images were medically necessary to better assess the following anatomy: endometrium and ovaries Date of LMP: 35 years ago EXAM MEASUREMENTS: Uterus: 5.4 x 2.5 x 3.0 cm Endometrial Stripe: 1.2 cm Right Ovary: not seen Left Ovary: not seen 1. Uterus: heterogeneous 2. Endometrium: thickened 3. Right Ovary: not seen due to overlying bowel gas 4. Left Ovary: not seen due to overlying bowel gas 5. Bilateral Adnexa: wnl 6. Posterior cul-de-sac: wnl IMPRESSION: Abnormally thickened endometrium measuring 1.2 cm. In a postmenopausal female direct visu alization is recommended as this could represent endometrial hyperplasia, endometrial mass, or endome trial polyp. Ovaries are nonvisualized.
== END | disposition home or self-care (01) ==
LOC: RADUSWWP 15:06
PROVIDERS: ATTEND Family Medicine
DX: R93.89 Abnormal findings on diagnostic imaging of other specified body structures (principal); Z78.0 Asymptomatic menopausal state
CPT/HCPCS: 76830; 76856

== ENCOUNTER 2019-09-30 07:45 | Day surgery (SDC) | payer MEDICARE, OTHER ==
[2019-09-28 13:19] VITALS: BMI 26.2
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
[~2019-09-30 07:45] MED LIST changes: +DEXAMETHASONE SOD PHOSPHATE 10 MG/ML 1 ML VIAL IV ONE; +LACTATED RINGERS 1,000 ML IV SCH; +LIDOCAINE 1% (10MG/ML) FOR IV START INTRADERMA PRN; +MORPHINE SULFATE 2 MG/ML SYRINGE IV PRN; +ONDANSETRON 4 MG/2 ML VIAL IVP ONE; +ONDANSETRON 4 MG/2 ML VIAL IVP PRN; +Pre Op ABX Message 1 EACH MISC MISCELLANE ONE; -ceFAZolin 1,000 MG in SODIUM CHLORIDE 0.9% IRRIGATIO 250 ML IRRIGATION ONE
[2019-09-30] MEDS ORDERED: ONDANSETRON 4 MG/2 ML VIAL ONE (08:08)
[2019-09-30 08:26] LABS: Glucose,Whole Blood 157 mg/dL (75-99)
[2019-09-30] MEDS ORDERED: fentaNYL (PF) 50 MCG/ML 2 ML AMP ONE (08:29)
[2019-09-30] MEDS ORDERED: PROPOFOL 10 MG/ML 20 ML VIAL IV ONE (08:29)
[2019-09-30] MEDS ORDERED: LIDOCAINE 1% INJ 10MG/ML (20 ML MDV) ONE (08:29)
[2019-09-30] MEDS ORDERED: KETOROLAC 30 MG/ML 1 ML VIAL ONE (08:29)
[2019-09-30] MEDS ORDERED: SUCCINYLCHOLINE CHLORIDE 100 MG/5 ML SYR IV ONE (08:29)
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
[2019-09-30 09:17] VITALS: TEMP 98.5
[2019-09-30 09:36] VITALS: RESP 18
[2019-09-30 10:35] VITALS: BP 146/67; PULSE 63
== END 2019-09-30 10:54 | disposition home or self-care (01) ==
LOC: OR 07:45
PROVIDERS: ATTEND Obstetrics & Gynecology
DX: N84.1 Polyp of cervix uteri (principal); N85.8 Other specified noninflammatory disorders of uterus; I10 Essential (primary) hypertension; E78.5 Hyperlipidemia, unspecified; I48.91 Unspecified atrial fibrillation; E11.9 Type 2 diabetes mellitus without complications; E07.9 Disorder of thyroid, unspecified; Z79.01 Long term (current) use of anticoagulants; Z79.4 Long term (current) use of insulin; Z79.890 Hormone replacement therapy; Z79.899 Other long term (current) drug therapy; Z87.442 Personal history of urinary calculi; Z96.653 Presence of artificial knee joint, bilateral; Z98.41 Cataract extraction status, right eye; Z98.42 Cataract extraction status, left eye; Z98.890 Other specified postprocedural states; Z95.0 Presence of cardiac pacemaker; Z83.3 Family history of diabetes mellitus
CPT/HCPCS: 88305; 58558; J1100; J2405; J2001; J3010; J1885; J0330; J2704

== ENCOUNTER → 2019-11-01 | Outpatient (CLI) | payer MEDICARE, OTHER ==
--- NOTE | 2019-11-03 14:26 | CT ---
EXAMINATION TYPE: CT abdomen wo/w con DATE OF EXAM: 11/01/2019 COMPARISON: CT abdomen pelvis 05/04/2019 HISTORY: Benign neoplasm of adrenal gland CT DLP: 908.4 mGycm Automated exposure control for dose reduction was used. TECHNIQUE: Helical acquisition of images was performed from the lung bases through the top of iliac crest to include entire abdomen. CONTRAST: Performed with Oral Contrast and without and with IV Contrast, patient injected with 80 mL of Isovue 300. FINDINGS: LUNG BASES: Bibasilar atelectasis. Cardiac pacemaker leads. No pericardial or pleural effusion. LIVER/GB: Normal liver. Status post cholecystectomy. Common bile duct somewhat prominent measuring up to 10 mm, likely due to post cholecystectomy state. No intrahepatic biliary ductal dilatation. PANCREAS: Normal. SPLEEN: Normal. ADRENALS: Right adrenal 11 mm nodule with precontrast Hounsfield units 18, postcontrast Hounsfield un its 115, and 15 minute delayed Hounsfield units of 44, with absolute washout of 73%, consistent with benign adenoma. No left adrenal nodule. KIDNEYS: Too small to characterize hypodensities of the left kidney and areas of cortical scarring. N o hydronephrosis bilaterally. BOWEL: Small hiatal hernia. The visualized bowel is nonobstructed and non thickened. Colonic diverti culosis. No visualized acute diverticulitis. LYMPH NODES: No abdominal lymphadenopathy. OSSEOUS STRUCTURES: Decreased osseous mineralization. Degenerative changes of the spine. FREE AIR: No free air is visualized. OTHER: No abdominal aortic aneurysm. IMPRESSION: Right 11 mm benign adrenal adenoma.
== END | disposition home or self-care (01) ==
LOC: RADCTMAIN 09:38
PROVIDERS: ATTEND Family Medicine
DX: D35.00 Benign neoplasm of unspecified adrenal gland (principal)
CPT/HCPCS: 82565; 84520; 74170; 36415; Q9967

== ENCOUNTER 2020-05-24 12:55 | Inpatient (IN) | payer MEDICARE, OTHER ==
--- NOTE | 2020-05-24 13:04 | ED ---
General Adult HPI - General Stated complaint: SAGAR Time Seen by Provider: 05/24/20 12:55 Source: patient, EMS, RN notes reviewed, old records reviewed - History of Present Illness Initial comments: This is an 79-year-old female presents to the emergency department because of difficulty breathing. Patient states been ongoing for about 6 days. Patient states her was: Positive however she has not had any fever that she k nows of. Patient states the difficulty breathing is gotten significantly worse over the last few days. Patient denies any chest pain or palpitations. Patient denies abdominal pain patient denies nausea vomiting diarrhea. Patient denies any loss of taste or smell. Patient denies lightheadedness or dizziness. Patient denies any numbness or weakness. - Related Data Home Medications Medication Instructions Recorded Confirmed Furosemide [Lasix] 20 mg PO DAILY 07/14/13 05/24/20 Levothyroxine Sodium [Synthroid] 25 mcg PO DAILY 07/18/13 05/24/20 Cholecalciferol [Vitamin D3 (25 1,000 unit PO DAILY 09/22/18 05/24/20 Mcg = 1000 Iu)] Insulin Glargine,Hum.rec.anlog 9 unit SQ HS 09/22/18 05/24/20 [Lantus Solostar] Insulin Lispro [humaLOG Kwikpen] 5 unit SQ AC-TID 09/22/18 05/24/20 metFORMIN HCL [Glucophage] 500 mg PO BID-W/MEALS 09/22/18 05/24/20 Rivaroxaban [Xarelto] 15 mg PO W/SUPPER 02/15/19 05/24/20 Metoprolol Succinate (ER) [Toprol 150 mg PO BID 04/27/19 05/24/20 XL] Atorvastatin [Lipitor] 10 mg PO HS 05/04/19 05/24/20 lisinopriL [Zestril] 5 mg PO DAILY 05/24/20 05/24/20 Allergies Allergy/AdvReac Type Severity Reaction Status Date / Time No Known Allergies Allergy Verified 05/24/20 13:30 Review of Systems ROS Statement: Those systems with pertinent positive or pertinent negative responses have been documented in the HPI. ROS Other: All systems not noted in ROS Statement are negative. Past Medical History Past Medical History: Atrial Fibrillation, Diabetes Mellitus, Thyroid Disorder Additional Past Medical History / Comment(s): hx kidney stones History of Any Multi-Drug Resistant Organisms: None Reported Past Surgical History: Breast Surgery, Joint Replacement, Pacemaker Additional Past Surgical History / Comment(s): removal of kidney stones, rafaela knee replacement, rt breast lumpectomy, rafaela cataracts Past Anesthesia/Blood Transfusion Reactions: No Reported Reaction Type of Cardiac Device: Permanent Pacemaker Device Placement Date:: 03/03/19 Past Psychological History: No Psychological Hx Reported Smoking Status: Never smoker Past Alcohol Use History: None Reported Past Drug Use History: None Reported - Past Family History Father History Unknown: Yes Family Medical History: Diabetes Mellitus Mother Family Medical History: No Reported History General Exam - General Exam Comments Initial Comments: GENERAL: Patient is well-developed and well-nourished. Patient is nontoxic and well- hydrated and is in mild distress. ENT: Neck is soft and supple. No significant lymphadenopathy is noted. Oropharynx is clear. Moist mucous membranes. Neck has full range of motion without eliciting any pain. EYES: The sclera were anicteric and conjunctiva were pink and moist. Extraocular movements were intact and pupils were equal round and reactive to light. Eyelids were unremarkable. PULMONARY: Unlabored respirations. Good breath sounds bilaterally. Patient has crackles in the bases. CARDIOVASCULAR: There is a regular rate and rhythm without any murmurs gallops or rubs. ABDOMEN: Soft and nontender with normal bowel sounds. SKIN: Skin is clear with no lesions or rashes and otherwise unremarkable. NEUROLOGIC: Patient is alert and oriented x3. Cranial nerves II through XII are grossly i ntact. Motor and sensory are also intact. Normal speech, volume and content. Symmetrical smile. MUSCULOSKELETAL: Normal extremities with adequate strength and full range of motion. LYMPHATICS: No significant lymphadenopathy is noted PSYCHIATRIC: Normal psychiatric evaluation. Course Vital Signs 05/24/20 05/24/20 05/24/20 12:56 13:11 13:25 Temperature 98.2 F Pulse Rate 76 61 Respiratory 20 20 24 Rate Blood Pressure 167/68 O2 Sat by Pulse 94 L 84 L Oximetry 05/24/20 05/24/20 05/24/20 14:20 15:18 15:56 Temperature Pulse Rate 68 60 63 Respiratory 24 22 22 Rate Blood Pressure 139/85 142/87 158/63 O2 Sat by Pulse 90 L 91 L 89 L Oximetry Medical Decision Making - Medical Decision Making EKG shows ventricular paced rhythm at 64 bpm QRS is under 40 QT interval 486 QTC is 501. Patient's EKG shows no ST segment elevation Patient's chest x-ray shows covert pneumonia. Patient had elevated d-dimer so I did a CAT scan of the chest that showed diffuse COVID pneumonia. Patient was put on BiPAP in the emergency department. I started the patient on steroids. I spoke with Dr. Julius Madrid agreed to admit the patient admitted the patient I wrote admitting orders I consulted pulmonary. Lactic acid was from hypoxia by the patient was at home. - Lab Data Result diagrams: 05/24/20 13:17 05/24/20 13:17 Lab Results 05/24/20 05/24/20 05/24/20 Range/Units 13:13 13:17 13:17 WBC 11.6 H (3.8-10.6) k/uL RBC 5.36 (3.80-5.40) m/uL Hgb 14.5 (11.4-16.0) gm/dL Hct 43.8 (34.0-46.0) % MCV 81.7 (80.0-100.0) fL MCH 27.0 (25.0-35.0) pg MCHC 33.0 (31.0-37.0) g/dL RDW 14.0 (11.5-15.5) % Plt Count 350 (150-450) k/uL MPV 9.1 Neutrophils % 84 % Lymphocytes % 6 % Monocytes % 5 % Eosinophils % 0 % Basophils % 2 % Neutrophils # 9.7 H (1.3-7.7) k/uL Lymphocytes # 0.7 L (1.0-4.8) k/uL Monocytes # 0.6 (0-1.0) k/uL Eosinophils # 0.0 (0-0.7) k/uL Basophils # 0.2 (0-0.2) k/uL PT 10.7 (9.0-12.0) sec INR 1.0 (<1.2) APTT 21.7 L (22.0-30.0) sec D-Dimer 3.87 H (<0.60) mg/L FEU Sample Site ABG pH (7.35-7.45) ABG pCO2 (35-45) mmHg ABG pO2 (83-108) mmHg ABG HCO3 (21-25) mmol/L ABG Total CO2 (19-24) mmol/L ABG O2 Saturation (94-97) % ABG Base Excess mmol/L Bernabe Test FiO2 % Sodium (137-145) mmol/L Potassium (3.5-5.1) mmol/L Chloride (98-107) mmol/L Carbon Dioxide (22-30) mmol/L Anion Gap mmol/L BUN (7-17) mg/dL Creatinine (0.52-1.04) mg/dL Est GFR (CKD-EPI)AfAm (>60 ml/min/1.73 sqM) Est GFR (CKD-EPI)NonAf (>60 ml/min/1.73 sqM) Glucose (74-99) mg/dL Lactic Ac Sepsis Rflx Plasma Lactic Acid Zan (0.7-2.0) mmol/L Calcium (8.4-10.2) mg/dL Magnesium (1.6-2.3) mg/dL Total Bilirubin (0.2-1.3) mg/dL AST (14-36) U/L ALT (4-34) U/L Alkaline Phosphatase (38-126) U/L Lactate Dehydrogenase (313-618) U/L C-Reactive Protein (<10.0) mg/L Total Protein (6.3-8.2) g/dL Albumin (3.5-5.0) g/dL Coronavirus (PCR) Detected A (Not Detectd) 05/24/20 05/24/20 05/24/20 Range/Units 13:17 13:17 13:30 WBC (3.8-10.6) k/uL RBC (3.80-5.40) m/uL Hgb (11.4-16.0) gm/dL Hct (34.0-46.0) % MCV (80.0-100.0) fL MCH (25.0-35.0) pg MCHC (31.0-37.0) g/dL RDW (11.5-15.5) % Plt Count (150-450) k/uL MPV Neutrophils % % Lymphocytes % % Monocytes % % Eosinophils % % Basophils % % Neutrophils # (1.3-7.7) k/uL Lymphocytes # (1.0-4.8) k/uL Monocytes # (0-1.0) k/uL Eosinophils # (0-0.7) k/uL Basophils # (0-0.2) k/uL PT (9.0-12.0) sec INR (<1.2) APTT (22.0-30.0) sec D-Dimer (<0.60) mg/L FEU Sample Site LRAD ABG pH 7.44 (7.35-7.45) ABG pCO2 28 L (35-45) mmHg ABG pO2 59 L* (83-108) mmHg ABG HCO3 19 L (21-25) mmol/L ABG Total CO2 20 (19-24) mmol/L ABG O2 Saturation 90.0 L (94-97) % ABG Base Excess -5.1 mmol/L Bernabe Test Yes FiO2 100 % Sodium 140 (137-145) mmol/L Potassium 5.1 (3.5-5.1) mmol/L Chloride 103 (98-107) mmol/L Carbon Dioxide 20 L (22-30) mmol/L Anion Gap 17 mmol/L BUN 29 H (7-17) mg/dL Creatinine 1.16 H (0.52-1.04) mg/dL Est GFR (CKD-EPI)AfAm 51 (>60 ml/min/1.73 sqM) Est GFR (CKD-EPI)NonAf 44 (>60 ml/min/1.73 sqM) Glucose 282 H (74-99) mg/dL Lactic Ac Sepsis Rflx Plasma Lactic Acid Zan 5.4 H* (0.7-2.0) mmol/L Calcium 9.1 (8.4-10.2) mg/dL Magnesium 2.1 (1.6-2.3) mg/dL Total Bilirubin 1.1 (0.2-1.3) mg/dL AST 36 (14-36) U/L ALT 28 (4-34) U/L Alkaline Phosphatase 79 (38-126) U/L Lactate Dehydrogenase 1680 H (313-618) U/L C-Reactive Protein 165.5 H (<10.0) mg/L Total Protein 7.2 (6.3-8.2) g/dL Albumin 3.6 (3.5-5.0) g/dL Coronavirus (PCR) (Not Detectd) 05/24/20 Range/Units 13:50 WBC (3.8-10.6) k/uL RBC (3.80-5.40) m/uL Hgb (11.4-16.0) gm/dL Hct (34.0-46.0) % MCV (80.0-100.0) fL MCH (25.0-35.0) pg MCHC (31.0-37.0) g/dL RDW (11.5-15.5) % Plt Count (150-450) k/uL MPV Neutrophils % % Lymphocytes % % Monocytes % % Eosinophils % % Basophils % % Neutrophils # (1.3-7.7) k/uL Lymphocytes # (1.0-4.8) k/uL Monocytes # (0-1.0) k/uL Eosinophils # (0-0.7) k/uL Basophils # (0-0.2) k/uL PT (9.0-12.0) sec INR (<1.2) APTT (22.0-30.0) sec D-Dimer (<0.60) mg/L FEU Sample Site ABG pH (7.35-7.45) ABG pCO2 (35-45) mmHg ABG pO2 (83-108) mmHg ABG HCO3 (21-25) mmol/L ABG Total CO2 (19-24) mmol/L ABG O2 Saturation (94-97) % ABG Base Excess mmol/L Bernabe Test FiO2 % Sodium (137-145) mmol/L Potassium (3.5-5.1) mmol/L Chloride (98-107) mmol/L Carbon Dioxide (22-30) mmol/L Anion Gap mmol/L BUN (7-17) mg/dL Creatinine (0.52-1.04) mg/dL Est GFR (CKD-EPI)AfAm (>60 ml/min/1.73 sqM) Est GFR (CKD-EPI)NonAf (>60 ml/min/1.73 sqM) Glucose (74-99) mg/dL Lactic Ac Sepsis Rflx Y Plasma Lactic Acid Zan (0.7-2.0) mmol/L Calcium (8.4-10.2) mg/dL Magnesium (1.6-2.3) mg/dL Total Bilirubin (0.2-1.3) mg/dL AST (14-36) U/L ALT (4-34) U/L Alkaline Phosphatase (38-126) U/L Lactate Dehydrogenase (313-618) U/L C-Reactive Protein (<10.0) mg/L Total Protein (6.3-8.2) g/dL Albumin (3.5-5.0) g/dL Coronavirus (PCR) (Not Detectd) Critical Care Time Critical Care Time: Yes Total Critical Care Time: 35 Disposition Clinical Impression: Pneumonia due to COVID-19 virus Disposition: ADMITTED IP TO THIS HOSP Referrals: Ap Romero DO [Primary Care Provider] - 1-2 days Time of Disposition: 16:00
--- NOTE | 2020-05-24 13:29 | XR ---
EXAMINATION TYPE: XR chest 1V portable DATE OF EXAM: 05/24/2020 COMPARISON: 05/04/2019 HISTORY: Pelvic TECHNIQUE: Single frontal view of the chest is obtained. FINDINGS: Heart is enlarged and there is diffuse interstitial central pattern with patchy infiltrate s. No sizable pleural effusion or pneumothorax. Diffuse osteopenia and arthropathy of the shoulders. Cardiac device noted. Atherosclerotic change aorta. IMPRESSION: 1. Stable patchy interstitial infiltrates correlate for interstitial pneumonia.
[2020-05-24 13:30] LABS: Basophils # (A) 0.2 k/uL (0-0.2); Basophils % (A) 2 %; Eosinophils % (A) 0 %; HCT 43.8 % (34.0-46.0); HGB 14.5 gm/dL (11.4-16.0); Lymphocytes # (A) 0.7 k/uL (1.0-4.8); Lymphocytes % (A) 6 %; MCV 81.7 fL (80.0-100.0); Mean Platelet Volume 9.1; Monocytes # (A) 0.6 k/uL (0-1.0); Monocytes % (A) 5 %; Neutrophils # (A) 9.7 k/uL (1.3-7.7); Neutrophils % (A) 84 %; Platelet Count 350 k/uL (150-450); RBC 5.36 m/uL (3.80-5.40); WBC 11.6 k/uL (3.8-10.6)
[2020-05-24 13:38] LABS: ABG Base Excess -5.1 mmol/L; ABG HCO3 19 mmol/L (21-25); ABG PCO2 28 mmHg (35-45); ABG PH 7.44 (7.35-7.45); ABG TCO2 20 mmol/L (19-24); Allen Test Performed? Yes
[2020-05-24 13:40] LABS: ABG PO2 59 mmHg (83-108)
[2020-05-24 13:47] LABS: Albumin 3.6 g/dL (3.5-5.0); Calcium 9.1 mg/dL (8.4-10.2); Magnesium 2.1 mg/dL (1.6-2.3); Potassium 5.1 mmol/L (3.5-5.1); Total Bilirubin 1.1 mg/dL (0.2-1.3); Total Protein 7.2 g/dL (6.3-8.2)
[2020-05-24 14:05] LABS: C Reactive Protein 165.5 mg/L (<10.0)
[2020-05-24 14:18] LABS: Partial Thromboplastin Time 21.7 sec (22.0-30.0); Prothrombin Time 10.7 sec (9.0-12.0)
[2020-05-24 14:42] LABS: D-Dimer 3.87 mg/L FEU (<0.60)
--- NOTE | 2020-05-24 15:21 | CT ---
EXAMINATION TYPE: CT chest angio for PE DATE OF EXAM: 05/24/2020 COMPARISON: Radiograph same day HISTORY: 79 year-old female shortness of breath, Difficulty breathing. PE suspected. TECHNIQUE: Contiguous axial scanning of the chest performed with IV Contrast, patient injected with 8 0 mL of Isovue 370. Delayed coronal/sagittal MIP reconstructions performed. CT DLP: 323.1 mGycm Automated exposure control for dose reduction was used. FINDINGS: Left anterior chest wall pacemaker generator with right atrial and 2 right ventricular leads. The heart is mildly enlarged without pericardial effusion. No flattening of the interventricular sept um reflux of contrast into the hepatic veins. RCA and LAD coronary artery calcifications are noted. Aorta normal caliber with mild atherosclerotic arch calcifications and conventional arch vessel branc kiera anatomy. Numerous scattered nonenlarged and borderline sized mediastinal lymph nodes measuring up to 1 cm in A P window, 7 mm right peritracheal region, 1.3 cm right hilar, and 1.3 cm subcarinal. Satisfactory opacification of pulmonary or axial system without evidence for pulmonary embolus. Confluent groundglass changes. There is upper lobe bronchiectasis on the left and left lower lobe bro nchiolectasis. Small hiatal hernia. Visualized upper abdomen otherwise shows cholecystectomy clips. Bones: Mild degenerative disc disease mid to lower thoracic spine. No osseous destructive process. IMPRESSION: 1. NO EVIDENCE FOR PULMONARY EMBOLUS. 2. FAIRLY EXTENSIVE BILATERAL CONFLUENT AREAS OF GROUNDGLASS. SOME UNDERLYING CHANGES ARE CHRONIC GIV EN BRONCHIECTASIS IN THE LEFT UPPER LOBE AND TO A LESSER EXTENT IN THE LEFT LOWER LOBE. SOME DIFFEREN TIAL CONSIDERATIONS INCLUDE COVID PNEUMONIA, INTERSTITIAL PNEUMONITIS SUCH NSIP, HYPERSENSITIVITY PNEUMONITIS, ATYPICAL PNEUMONIAS, AND VASCULITIS. CLINICALLY CORRELATE. 3. SOME BORDERLINE-SIZED MEDIASTINAL AND RIGHT HILAR LYMPH NODES LIKELY REACTIVE. 4. MILD CARDIOMEGALY. SMALL HIATAL HERNIA.
[2020-05-24] MEDS ORDERED: dexAMETHasone 2 MG TAB PO STA (15:48)
[2020-05-24] MEDS ORDERED: PNEUMONIA PROTOCOL UTILIZED 1 EACH MISC PO PRN (16:07)
[2020-05-24 20:25] LABS: Glucose,Whole Blood 246 mg/dL (75-99)
[2020-05-24] MEDS: METOPROLOL SUCCINATE (ER) 100 MG TAB.ER.24H PO SCH (21:43)
[2020-05-24] MEDS: ATORVASTATIN 10 MG TAB PO SCH (21:44)
[2020-05-24] MEDS: INSULIN DETEMIR (LEVEMIR) 100 UNIT/ML SYR SQ SCH (21:44)
[2020-05-25] MEDS: metFORMIN 500 MG TAB PO SCH ×2 (06:00→17:50)
[2020-05-25 06:38] LABS: Glucose,Whole Blood 262 mg/dL (75-99)
[2020-05-25] MEDS: INSULIN ASPART (NovoLOG) 100 UNIT/ML VIAL SQ SCH ×4 (06:42→21:41)
[2020-05-25] MEDS: LEVOTHYROXINE 25 MCG TAB PO SCH (06:42)
--- NOTE | 2020-05-25 08:13 | XR ---
EXAMINATION TYPE: XR chest 1V portable DATE OF EXAM: 05/25/2020 Comparison: 05/24/2020 Clinical History: 79-year-old female pneumonia Findings: Left anterior chest wall pacemaker generator with 3 pacer leads. Heart borderline enlarged. Multifoca l patchy airspace opacities. Left basilar underpenetrated and not well assessed. Degenerative changes of both shoulders. Impression: Multifocal patchy airspace disease relatively unchanged.
[2020-05-25] MEDS ORDERED: dexAMETHasone 2 MG TAB PO SCH (09:00)
[2020-05-25] MEDS: FUROSEMIDE 20 MG TAB PO SCH (10:24)
[2020-05-25] MEDS: lisinopriL 5 MG TAB PO SCH (10:24)
[2020-05-25] MEDS: CHOLECALCIFEROL 25 MCG (1000 IU) TABLET PO SCH (10:25)
[2020-05-25] MEDS: METOPROLOL SUCCINATE (ER) 100 MG TAB.ER.24H PO SCH ×2 (10:25→21:56)
[2020-05-25 12:01] LABS: Glucose,Whole Blood 246 mg/dL (75-99)
[2020-05-25] MEDS ORDERED: REMDESIVIR 200 MG in SODIUM CHLORIDE 0.9% 250 ML IVPB ONE (13:00)
--- NOTE | 2020-05-25 13:58 | P.CNPUL ---
History of Present Illness Consult date: 05/25/20 Requesting physician: Jarret Madrid Reason for consult: dyspnea, hypoxemia, abnormal CXR/CT Chief complaint: Shortness of breath, hypoxia History of present illness: 79-year-old white female patient that came into the emergency department on 05/24/2020 with complaints of shortness of breath for 2 days prior to presentation. The patient's was positive for COVID 19. Patient denied any fever, denied any chest discomfort, no loss of taste or smell, no abdominal pain, nausea vomiting or diarrhea. Chronic medical conditions include history of A. fib on Xarelto, diabetes mellitus type 2, hypothyroidism, lifetime nonsmoker, permanent pacemaker implantation. Chest x-ray shows stable patchy interstitial infiltrates. On presentation patient was on room air however her oxygen demand has quickly increased up to 12 L of oxygen per minute, and subsequently up to 15 L less than 24 hours. She remains afebrile. Patient tested positive for COVID 19. White blood cell count is 11.6, hemoglobin is 14.5, d-dimer is 3.8, B1 is 29, creatinine is 1.16, ferritin is 1165, LDH is 1680, CRP is 165.5, pro calcitonin level is 0.42. Blood gas was completed yesterday showing pO2 59, pCO2 of 28, and pH of 7.44 and this was on 100% FiO2. CTA chest showed no evidence of pulmonary embolism, and fairly extensive bilateral confluent areas of groundglass opacities. There are some underlying changes that are chronic given bronchiectasis in the left upper lobe and to a lesser degree in the left lower lobe. There was some borderline sized mediastinal and right hilar lymph nodes that are possibly reactive. Patient was given a dose of IV Decadron in the emergency department, it has been switched over to IV Solu-Medrol 40 mg every 8 hours, she is on Xarelto, Pepcid, vitamins. This morning she was placed on BiPAP support with pressures of 12/5 and FiO2 of 60%. Her breathing is labored, today's chest x-ray shows multifocal patchy airspace disease. Review of Systems Respiratory: Reports dyspnea Past Medical History Past Medical History: Atrial Fibrillation, Diabetes Mellitus, Thyroid Disorder Additional Past Medical History / Comment(s): hx kidney stones History of Any Multi-Drug Resistant Organisms: None Reported Past Surgical History: Breast Surgery, Joint Replacement, Pacemaker Additional Past Surgical History / Comment(s): removal of kidney stones, rafaela knee replacement, rt breast lumpectomy, rafaela cataracts Past Anesthesia/Blood Transfusion Reactions: No Reported Reaction Type of Cardiac Device: Permanent Pacemaker Device Placement Date:: 03/03/19 Past Psychological History: No Psychological Hx Reported Smoking Status: Never smoker Past Alcohol Use History: None Reported Past Drug Use History: None Reported - Past Family History Father History Unknown: Yes Family Medical History: Diabetes Mellitus Mother Family Medical History: No Reported History Medications and Allergies Home Medications Medication Instructions Recorded Confirmed Type Furosemide [Lasix] 20 mg PO DAILY 07/14/13 05/24/20 History Levothyroxine Sodium [Synthroid] 25 mcg PO DAILY 07/18/13 05/24/20 History Cholecalciferol [Vitamin D3 (25 1,000 unit PO DAILY 09/22/18 05/24/20 History Mcg = 1000 Iu)] Insulin Glargine,Hum.rec.anlog 9 unit SQ HS 09/22/18 05/24/20 History [Lantus Solostar] Insulin Lispro [humaLOG Kwikpen] 5 unit SQ AC-TID 09/22/18 05/24/20 History metFORMIN HCL [Glucophage] 500 mg PO BID-W/MEALS 09/22/18 05/24/20 History Rivaroxaban [Xarelto] 15 mg PO W/SUPPER 02/15/19 05/24/20 History Metoprolol Succinate (ER) [Toprol 150 mg PO BID 04/27/19 05/24/20 History XL] Atorvastatin [Lipitor] 10 mg PO HS 05/04/19 05/24/20 History lisinopriL [Zestril] 5 mg PO DAILY 05/24/20 05/24/20 History Allergies Allergy/AdvReac Type Severity Reaction Status Date / Time No Known Allergies Allergy Verified 05/24/20 13:30 Physical Exam Vitals: Vital Signs Temp Pulse Pulse Resp BP BP Pulse Ox 05/25/20 12:10 65 19 170/81 94 L 05/25/20 08:30 91 L 05/25/20 08:25 98.1 F 61 19 160/72 88 L 05/25/20 04:00 97.9 F 74 22 135/73 90 L 05/24/20 21:11 92 L 05/24/20 20:30 20 90 L 05/24/20 20:00 98.3 F 61 18 133/63 88 L 05/24/20 17:47 98.1 F 60 18 150/50 91 L 05/24/20 15:56 63 22 158/63 89 L 05/24/20 15:18 60 22 142/87 91 L 05/24/20 14:20 68 24 139/85 90 L Intake and Output 05/24/20 05/25/20 05/25/20 22:59 06:59 14:59 Intake Total 1135 475 360 Balance 1135 475 360 Intake: Oral 660 475 360 Blood Product 475 Other: Voiding Method Toilet Toilet Bedside Commode Bedside Commode # Voids 1 Weight 69.4 kg 98 kg GENERAL EXAM: Alert, pleasant, 79-year-old female on BiPAP support with pressures of 12 and 5 and FiO2 of 60%, dyspneic, tachypneic, comfortable in no apparent distress. HEAD: Normocephalic/atraumatic. EYES: Normal reaction of pupils, equal size. Conjunctiva pink, sclera white. NOSE: Clear with pink turbinates. THROAT: No erythema or exudates. NECK: No masses, no JVD, no thyroid enlargement, no adenopathy. CHEST: No chest wall deformity. Symmetrical expansion. LUNGS: Equal air entry with diffuse crackles, but no wheeze, rhonchi or dullness. CVS: Regular rate and rhythm, normal S1 and S2, no gallops, no murmurs, no rubs ABDOMEN: Soft, nontender. No hepatosplenomegaly, normal bowel sounds, no guarding or rigidity. EXTREMITIES: No clubbing, no edema, no cyanosis, 2+ pulses and upper and lower extremities. MUSCULOSKELETAL: Muscle strength and tone normal. SPINE: No scoliosis or deformity SKIN: No rashes CENTRAL NERVOUS SYSTEM: Alert and oriented -3. No focal deficits, tone is normal in all 4 extremities. PSYCHIATRIC: Alert and oriented -3. Appropriate affect. Intact judgment and insight. Results - Laboratory Findings CBC and BMP: 05/24/20 13:17 05/24/20 13:17 ABG ABG pH 7.44 (7.35-7.45) 05/24/20 13:30 ABG pCO2 28 mmHg (35-45) L 05/24/20 13:30 ABG pO2 59 mmHg (83-108) L* 05/24/20 13:30 ABG O2 Saturation 90.0 % (94-97) L 05/24/20 13:30 PT/INR, D-dimer PT 10.7 sec (9.0-12.0) 05/24/20 13:17 INR 1.0 (<1.2) 05/24/20 13:17 D-Dimer 3.87 mg/L FEU (<0.60) H 05/24/20 13:17 Abnormal lab findings: Abnormal Labs 05/24/20 05/24/20 05/24/20 13:13 13:17 13:17 WBC 11.6 H Neutrophils # 9.7 H Lymphocytes # 0.7 L APTT 21.7 L D-Dimer 3.87 H ABG pCO2 ABG pO2 ABG HCO3 ABG O2 Saturation Carbon Dioxide BUN Creatinine Glucose POC Glucose (mg/dL) Plasma Lactic Acid Zan Ferritin Lactate Dehydrogenase C-Reactive Protein Procalcitonin Coronavirus (PCR) Detected A 05/24/20 05/24/20 05/24/20 13:17 13:17 13:17 WBC Neutrophils # Lymphocytes # APTT D-Dimer ABG pCO2 ABG pO2 ABG HCO3 ABG O2 Saturation Carbon Dioxide 20 L BUN 29 H Creatinine 1.16 H Glucose 282 H POC Glucose (mg/dL) Plasma Lactic Acid Zan 5.4 H* Ferritin 1165.0 H Lactate Dehydrogenase 1680 H C-Reactive Protein 165.5 H Procalcitonin 0.42 H Coronavirus (PCR) 05/24/20 05/24/20 05/24/20 13:30 17:23 20:24 WBC Neutrophils # Lymphocytes # APTT D-Dimer ABG pCO2 28 L ABG pO2 59 L* ABG HCO3 19 L ABG O2 Saturation 90.0 L Carbon Dioxide BUN Creatinine Glucose POC Glucose (mg/dL) 246 H Plasma Lactic Acid Zan 2.5 H* Ferritin Lactate Dehydrogenase C-Reactive Protein Procalcitonin Coronavirus (PCR) 05/24/20 05/25/20 05/25/20 20:35 06:36 11:58 WBC Neutrophils # Lymphocytes # APTT D-Dimer ABG pCO2 ABG pO2 ABG HCO3 ABG O2 Saturation Carbon Dioxide BUN Creatinine Glucose POC Glucose (mg/dL) 262 H 246 H Plasma Lactic Acid Zan 3.6 H* Ferritin Lactate Dehydrogenase C-Reactive Protein Procalcitonin Coronavirus (PCR) - Diagnostic Findings Chest x-ray: report reviewed, image reviewed CT scan - chest: report reviewed, image reviewed Additional studies: Paced rhythm on EKG Assessment and Plan Plan: Assessment: #1. Acute severe hypoxemic respiratory failure related to COVID 19 pneumonitis, and patient had a rapid deterioration in her oxygenation status since admission. Patient had exposure to COVID 19 positive . Onset of symptoms 2 days ago #2. Elevated inflammatory markers related to the above #3. Elevated d-dimer, but no evidence of pulmonary embolism on CTA chest, patient takes Xarelto on a regular basis #4. Diabetes mellitus type 2 #5. Chronic A. fib on Xarelto #6. Permanent pacemaker implantation #7. Hypothyroidism #8. Chronic kidney disease, unspecified #9. Osteoarthritis Plan: Patient symptoms and hypoxemia has significantly and rapidly progressed since admission, requiring 100% FiO2, and currently patient is requiring noninvasive positive pressure ventilation in the form of BiPAP. Based on her increased oxygen demand, she does not qualify for Remdesivir however she does qualify for Tocilizumab 400 mg 2 doses. Inflammatory markers are significantly elevated, d-dimer is elevated, will continue with her home dose Xarelto. Patient will be transferred to the intensive care unit for closer monitoring. Will continue current dose of steroids and vitamins, chest x-ray in the morning, follow-up labs including inflammatory markers. Prognosis is guarded, will continue to closely follow I performed a history & physical examination of the patient and discussed their management with my nurse practitioner, Francheska Metz. I reviewed the nurse practitioner's note and agree with the documented findings and plan of care. Lung sounds are positive for diminished breath sounds diffuse crackles. The findings and the impression was discussed with the patient. I attest to the documentation by the nurse practitioner. Time with Patient: Greater than 30
[2020-05-25] MEDS ORDERED: TOCILIZUMAB 400 MG in SODIUM CHLORIDE 0.9% 80 ML IV ONE (14:00)
[2020-05-25 14:37] LABS: Glucose,Whole Blood 266 mg/dL (75-99)
[2020-05-25] MEDS: methylPREDNISolone SOD SUCCI 40 MG/ML 1 ML VIAL IV SCH (16:27)
[2020-05-25 17:48] LABS: Glucose,Whole Blood 238 mg/dL (75-99)
[2020-05-25] MEDS: FAMOTIDINE 20 MG TAB PO SCH ×2 (17:50→21:56)
[2020-05-25] MEDS: ASCORBIC ACID 500 MG TAB PO SCH (17:50)
[2020-05-25] MEDS: ZINC SULFATE 220 MG CAP PO SCH (17:50)
--- NOTE | 2020-05-25 20:55 | P.HPIM ---
History of Present Illness H&P Date: 05/25/20 Chief Complaint: Short of breath History of presenting complaint: This is a pleasant 79-year-old patient, follows a Dr. Romero. Chronic stable medical conditions include atrial fibrillation, diabetes, hypothyroid, history of kidney stones. Ostial arthritis. Has a pacemaker. Patient presents increasing shortness of breath with minimal exertion. Chest pressure. No cough no fever no chills. Feeling very tired and weak and rundown. No body aches. No diarrhea. No loss of smell or taste. Patient be put on high flow oxygen. Is able to eat some food. Review of systems: GEN.: Tired EYES: None HEENT: None NECK: None RESPIRATORY: As above CARDIOVASCULAR: None GASTROINTESTINAL: None GENITOURINARY: None MUSCULOSKELETAL: Some joint pains LYMPHATICS: None HEMATOLOGICAL: None PSYCHIATRY: None NEUROLOGICAL: None Past medical history to include: Atrial fibrillation, diabetes, hypothyroid, kidney stones, Physical examination: VITAL SIGNS: 98.2, 76, 20, 139/85, 84% on 2 L, 91% on 15 L nonrebreather GENERAL: BMI 39.5, declining bed, short of breath. EYES: Pupils equal. Conjunctiva normal. HEENT: External appearance of nose and ears normal, oral cavity grossly normal. NECK: JVD not raised; masses not palpable. HEART: First and second heart sounds are normal; no edema. LUNGS: Respiratory rate increased, decreased breath sound bilateral crackles [place] muscles are working, not able to speak in full sentences. ABDOMEN: Soft, nontender, liver spleen not palpable, no masses palpable. PSYCH: Alert and oriented x3; mood and affect anxiousl MUSCULAR skeletal: Evidence of OA. NEUROLOGICAL: Cranial nerves grossly intact; no facial asymmetry, power and sensation grossly intact. LYMPHATICS: No lymph nodes palpable in the axilla and neck INVESTIGATIONS, reviewed in the clinical context: WBC 11.6 hemoglobin 14.5 platelets 350 lymphocytes 0.7 D-dimer 3.87 ABG-pH 7.44 pO2 59 CO2 20 Potassium 5.1 BUN 29 creatinine 1.16 lactic acid 5.4 CRP 165.5 pro-calcitonin 0.42 Coronavirus [PCR]-detected EKG tracing personally reviewed by ut-ventricle brace rhythm Chest CT-extensive bilateral comfort 80s of groundglass. Some chronic changes also. Possibly bronchiectasis. Some borderline enlarged mediastinal hilar lymph nodes. Negative for PE Chest x-ray film personally reviewed by me-cardiomegaly with infiltrates Assessment and plan: -Acute bilateral COVID 19 pneumonia, severe. Patient being put on vitamin C, vitamin D, Pepcid, steroids, patient is chronically on xarelto. -Acute severe hypoxic respiratory failure from above. Put on high flow oxygen -Obesity BMI 39.5. Patient may follow outpatient weight loss measures -Diabetes mellitus type 2 chronically on insulin. Uncontrolled with hyperglycemia. Expect Accu-Cheks to go off his steroids -Hyperlipidemia on Lipitor -Hypothyroid continue with Synthroid -Persistent atrial fibrillation patient on Toprol-XL. -Permanent pacemaker Pulmonary was consulted. Care was discussed with the patient. Given the complexity and severity of patient's condition expect the patient to be in the hospital at least for 2 overnights Past Medical History Past Medical History: Atrial Fibrillation, Diabetes Mellitus, Thyroid Disorder Additional Past Medical History / Comment(s): hx kidney stones History of Any Multi-Drug Resistant Organisms: None Reported Past Surgical History: Breast Surgery, Joint Replacement, Pacemaker Additional Past Surgical History / Comment(s): removal of kidney stones, rafaela knee replacement, rt breast lumpectomy, rafaela cataracts Past Anesthesia/Blood Transfusion Reactions: No Reported Reaction Type of Cardiac Device: Permanent Pacemaker Device Placement Date:: 03/03/19 Past Psychological History: No Psychological Hx Reported Smoking Status: Never smoker Past Alcohol Use History: None Reported Past Drug Use History: None Reported - Past Family History Father History Unknown: Yes Family Medical History: Diabetes Mellitus Mother Family Medical History: No Reported History Medications and Allergies Home Medications Medication Instructions Recorded Confirmed Type Furosemide [Lasix] 20 mg PO DAILY 07/14/13 05/24/20 History Levothyroxine Sodium [Synthroid] 25 mcg PO DAILY 07/18/13 05/24/20 History Cholecalciferol [Vitamin D3 (25 1,000 unit PO DAILY 09/22/18 05/24/20 History Mcg = 1000 Iu)] Insulin Glargine,Hum.rec.anlog 9 unit SQ HS 09/22/18 05/24/20 History [Lantus Solostar] Insulin Lispro [humaLOG Kwikpen] 5 unit SQ AC-TID 09/22/18 05/24/20 History metFORMIN HCL [Glucophage] 500 mg PO BID-W/MEALS 09/22/18 05/24/20 History Rivaroxaban [Xarelto] 15 mg PO W/SUPPER 02/15/19 05/24/20 History Metoprolol Succinate (ER) [Toprol 150 mg PO BID 04/27/19 05/24/20 History XL] Atorvastatin [Lipitor] 10 mg PO HS 05/04/19 05/24/20 History lisinopriL [Zestril] 5 mg PO DAILY 05/24/20 05/24/20 History Allergies Allergy/AdvReac Type Severity Reaction Status Date / Time No Known Allergies Allergy Verified 05/24/20 13:30 Physical Exam Vitals: Vital Signs Temp Pulse Pulse Resp BP BP Pulse Ox 05/25/20 04:00 97.9 F 74 22 135/73 90 L 05/24/20 21:11 92 L 05/24/20 20:30 20 90 L 05/24/20 20:00 98.3 F 61 18 133/63 88 L 05/24/20 17:47 98.1 F 60 18 150/50 91 L 05/24/20 15:56 63 22 158/63 89 L 05/24/20 15:18 60 22 142/87 91 L 05/24/20 14:20 68 24 139/85 90 L 05/24/20 13:25 61 24 84 L 05/24/20 13:11 20 05/24/20 12:56 98.2 F 76 20 167/68 94 L Intake and Output 05/24/20 05/25/20 05/25/20 22:59 06:59 14:59 Intake Total 1135 475 240 Balance 1135 475 240 Intake: Oral 660 475 240 Blood Product 475 Other: Voiding Method Toilet Toilet Bedside Commode Bedside Commode # Voids 1 Weight 69.4 kg 98 kg Results CBC & Chem 7: 05/24/20 13:17 05/24/20 13:17 Labs: Abnormal Lab Results - Last 24 Hours (Table) 05/24/20 05/24/20 05/24/20 Range/Units 13:13 13:17 13:17 WBC 11.6 H (3.8-10.6) k/uL Neutrophils # 9.7 H (1.3-7.7) k/uL Lymphocytes # 0.7 L (1.0-4.8) k/uL APTT 21.7 L (22.0-30.0) sec D-Dimer 3.87 H (<0.60) mg/L FEU ABG pCO2 (35-45) mmHg ABG pO2 (83-108) mmHg ABG HCO3 (21-25) mmol/L ABG O2 Saturation (94-97) % Carbon Dioxide (22-30) mmol/L BUN (7-17) mg/dL Creatinine (0.52-1.04) mg/dL Glucose (74-99) mg/dL POC Glucose (mg/dL) (75-99) mg/dL Plasma Lactic Acid Zan (0.7-2.0) mmol/L Ferritin (10.0-291.0) ng/mL Lactate Dehydrogenase (313-618) U/L C-Reactive Protein (<10.0) mg/L Procalcitonin (0.02-0.09) ng/mL Coronavirus (PCR) Detected A (Not Detectd) 05/24/20 05/24/20 05/24/20 Range/Units 13:17 13:17 13:17 WBC (3.8-10.6) k/uL Neutrophils # (1.3-7.7) k/uL Lymphocytes # (1.0-4.8) k/uL APTT (22.0-30.0) sec D-Dimer (<0.60) mg/L FEU ABG pCO2 (35-45) mmHg ABG pO2 (83-108) mmHg ABG HCO3 (21-25) mmol/L ABG O2 Saturation (94-97) % Carbon Dioxide 20 L (22-30) mmol/L BUN 29 H (7-17) mg/dL Creatinine 1.16 H (0.52-1.04) mg/dL Glucose 282 H (74-99) mg/dL POC Glucose (mg/dL) (75-99) mg/dL Plasma Lactic Acid Zan 5.4 H* (0.7-2.0) mmol/L Ferritin 1165.0 H (10.0-291.0) ng/mL Lactate Dehydrogenase 1680 H (313-618) U/L C-Reactive Protein 165.5 H (<10.0) mg/L Procalcitonin 0.42 H (0.02-0.09) ng/mL Coronavirus (PCR) (Not Detectd) 05/24/20 05/24/20 05/24/20 Range/Units 13:30 17:23 20:24 WBC (3.8-10.6) k/uL Neutrophils # (1.3-7.7) k/uL Lymphocytes # (1.0-4.8) k/uL APTT (22.0-30.0) sec D-Dimer (<0.60) mg/L FEU ABG pCO2 28 L (35-45) mmHg ABG pO2 59 L* (83-108) mmHg ABG HCO3 19 L (21-25) mmol/L ABG O2 Saturation 90.0 L (94-97) % Carbon Dioxide (22-30) mmol/L BUN (7-17) mg/dL Creatinine (0.52-1.04) mg/dL Glucose (74-99) mg/dL POC Glucose (mg/dL) 246 H (75-99) mg/dL Plasma Lactic Acid Zan 2.5 H* (0.7-2.0) mmol/L Ferritin (10.0-291.0) ng/mL Lactate Dehydrogenase (313-618) U/L C-Reactive Protein (<10.0) mg/L Procalcitonin (0.02-0.09) ng/mL Coronavirus (PCR) (Not Detectd) 05/24/20 05/25/20 Range/Units 20:35 06:36 WBC (3.8-10.6) k/uL Neutrophils # (1.3-7.7) k/uL Lymphocytes # (1.0-4.8) k/uL APTT (22.0-30.0) sec D-Dimer (<0.60) mg/L FEU ABG pCO2 (35-45) mmHg ABG pO2 (83-108) mmHg ABG HCO3 (21-25) mmol/L ABG O2 Saturation (94-97) % Carbon Dioxide (22-30) mmol/L BUN (7-17) mg/dL Creatinine (0.52-1.04) mg/dL Glucose (74-99) mg/dL POC Glucose (mg/dL) 262 H (75-99) mg/dL Plasma Lactic Acid Zan 3.6 H* (0.7-2.0) mmol/L Ferritin (10.0-291.0) ng/mL Lactate Dehydrogenase (313-618) U/L C-Reactive Protein (<10.0) mg/L Procalcitonin (0.02-0.09) ng/mL Coronavirus (PCR) (Not Detectd)
[2020-05-25 21:31] LABS: Glucose,Whole Blood 294 mg/dL (75-99)
[2020-05-25] MEDS ORDERED: INSULIN ASPART (NovoLOG) 100 UNIT/ML VIAL SQ ONE (21:38)
[2020-05-25] MEDS: RIVAROXABAN 15 MG TAB PO SCH (21:55)
[2020-05-25] MEDS: INSULIN DETEMIR (LEVEMIR) 100 UNIT/ML SYR SQ SCH (21:55)
[2020-05-25] MEDS: ATORVASTATIN 10 MG TAB PO SCH (21:56)
[2020-05-26] MEDS: methylPREDNISolone SOD SUCCI 40 MG/ML 1 ML VIAL IV SCH ×4 (00:23→23:02)
[2020-05-26] MEDS ORDERED: TOCILIZUMAB 400 MG in SODIUM CHLORIDE 0.9% 80 ML IV ONE (02:00)
[2020-05-26 04:17] LABS: Basophils # (A) 0.1 k/uL (0-0.2); Basophils % (A) 1 %; Eosinophils % (A) 0 %; HCT 37.9 % (34.0-46.0); HGB 12.9 gm/dL (11.4-16.0); Lymphocytes # (A) 0.7 k/uL (1.0-4.8); Lymphocytes % (A) 7 %; MCH 27.7 pg (25.0-35.0); MCHC 34.1 g/dL (31.0-37.0); MCV 81.1 fL (80.0-100.0); Mean Platelet Volume 9.1; Monocytes # (A) 0.5 k/uL (0-1.0); Monocytes % (A) 4 %; Neutrophils # (A) 9.5 k/uL (1.3-7.7); Neutrophils % (A) 86 %; Platelet Count 269 k/uL (150-450); RBC 4.67 m/uL (3.80-5.40); RDW 14.1 % (11.5-15.5); WBC 11.1 k/uL (3.8-10.6)
[2020-05-26 04:30] LABS: C Reactive Protein 63.7 mg/L (<10.0); Calcium 9.2 mg/dL (8.4-10.2); Potassium 4.8 mmol/L (3.5-5.1)
[2020-05-26 06:59] LABS: Glucose,Whole Blood 143 mg/dL (75-99)
[2020-05-26] MEDS: INSULIN ASPART (NovoLOG) 100 UNIT/ML VIAL SQ SCH ×7 (07:03→20:18)
[2020-05-26] MEDS: metFORMIN 500 MG TAB PO SCH ×2 (07:03→17:09)
[2020-05-26] MEDS: LEVOTHYROXINE 25 MCG TAB PO SCH (07:03)
--- NOTE | 2020-05-26 07:11 | XR ---
EXAMINATION TYPE: XR chest 1V portable DATE OF EXAM: 05/26/2020 COMPARISON: 05/25/2020 HISTORY: Covid 19 TECHNIQUE: Single frontal view of the chest is obtained. FINDINGS: There is moderate diffuse interstitial opacity in the right upper lobe and a partially cons olidative opacity in the left lung base. Overall the lungs are unchanged. There is a 2-lead cardiac pacemaker. There is no pneumothorax. The osseous structures are grossly int act. IMPRESSION: Bilateral lung infiltrates which are unchanged compared to the prior study.
[2020-05-26] MEDS ORDERED: FUROSEMIDE 10 MG/ML 4 ML VIAL IV STA (08:33)
[2020-05-26] MEDS: FAMOTIDINE 20 MG TAB PO SCH ×2 (09:11→21:05)
[2020-05-26] MEDS: lisinopriL 5 MG TAB PO SCH (09:11)
[2020-05-26] MEDS: ASCORBIC ACID 500 MG TAB PO SCH (09:11)
[2020-05-26] MEDS: ZINC SULFATE 220 MG CAP PO SCH (09:11)
[2020-05-26] MEDS: CHOLECALCIFEROL 25 MCG (1000 IU) TABLET PO SCH (09:11)
[2020-05-26] MEDS: METOPROLOL SUCCINATE (ER) 100 MG TAB.ER.24H PO SCH ×2 (09:11→21:05)
[2020-05-26] MEDS: FUROSEMIDE 20 MG TAB PO SCH (09:12)
[2020-05-26 12:03] LABS: Glucose,Whole Blood 192 mg/dL (75-99)
[2020-05-26] MEDS ORDERED: REMDESIVIR 100 MG in SODIUM CHLORIDE 0.9% 250 ML IVPB SCH (13:00)
--- NOTE | 2020-05-26 13:12 | P.PN ---
Subjective Progress Note Date: 05/26/20 Principal diagnosis: Acute hypoxic respiratory failure secondary to covid 19 pneumonitis. 79-year-old white female patient that came into the emergency department on 05/24/2020 with complaints of shortness of breath for 2 days prior to presentation. The patient's was positive for COVID 19. Patient denied any fever, denied any chest discomfort, no loss of taste or smell, no abdominal pain, nausea vomiting or diarrhea. Chronic medical conditions include history of A. fib on Xarelto, diabetes mellitus type 2, hypothyroidism, lifetime nonsmoker, permanent pacemaker implantation. Chest x-ray shows stable patchy interstitial infiltrates. On presentation patient was on room air however her oxygen demand has quickly increased up to 12 L of oxygen per minute, and s ubsequently up to 15 L less than 24 hours. She remains afebrile. Patient tested positive for COVID 19. White blood cell count is 11.6, hemoglobin is 14.5, d-dimer is 3.8, B1 is 29, creatinine is 1.16, ferritin is 1165, LDH is 1680, CRP is 165.5, pro calcitonin level is 0.42. Blood gas was completed yesterday showing pO2 59, pCO2 of 28, and pH of 7.44 and this was on 100% FiO2. CTA chest showed no evidence of pulmonary embolism, and fairly extensive bilateral confluent areas of groundglass opacities. There are some underlying changes that are chronic given bronchiectasis in the left upper lobe and to a lesser degree in the left lower lobe. There was some borderline sized mediastinal and right hilar lymph nodes that are possibly reactive. Patient was given a dose of IV Decadron in the emergency department, it has been switched over to IV Solu-Medrol 40 mg every 8 hours, she is on Xarelto, Pepcid, vitamins. This morning she was placed on BiPAP support with pressures of 12/5 and FiO2 of 60%. Her breathing is labored, today's chest x-ray shows multifocal patchy airspace disease. Patient was reevaluated today on 05/26/2020, patient remains in the ICU, she is feeling better, breathing a bit easier, although her chest x-ray continues to show bilateral interstitial infiltrates consistent with Covid 19 pneumonitis. Patient is now on airvo at 50 L and 80% FiO2, her O2 saturation is 92%. Patient is also on IV Solu-Medrol, she is on Xarelto, she did receive actemra yesterday, and she also received Lasix. Patient is out of the window for remdesivir, she also received 1 unit of convalescence plasma. Clinically the patient looks more comfortable today compared to yesterday, of course she is still requiring significant amount of oxygen, I feel we can potentially transfer the patient back to a regular medical floor with the same FiO2 settings. CBC is relatively normal. Renal profile is normal. LDH is 1543 and C-reactive protein is 64 Objective - Vital Signs Vital signs: Vital Signs Temp 97.5 F L 05/26/20 08:00 Pulse 60 05/26/20 11:00 Resp 21 05/26/20 11:00 BP 117/101 05/26/20 11:00 Pulse Ox 87 L 05/26/20 11:00 Intake & Output 05/25/20 05/26/20 05/26/20 18:59 06:59 18:59 Intake Total 640 648 100 Output Total 300 315 460 Balance 340 333 -360 Weight 67.9 kg Intake: IV 320 100 .9 220 100 Tocilizumab 400 mg In 100 Sodium Chloride 0.9% 80 ml @ 100 mls/hr IV ONCE ONE Rx#:[id number] Intake, IV Titration 80 Amount Tocilizumab 400 mg In 80 Sodium Chloride 0.9% 80 ml @ 100 mls/hr IV ONCE ONE Rx#:[id number] Oral 560 Blood Product 0 328 Ffp Convalescent Plasma 0 328 Cpd Unit [id number] Output: Urine 300 315 460 Other: Voiding Method Indwelling Catheter Indwelling Catheter Indwelling Catheter - Exam GENERAL EXAM: Revealed an 79-year-old female, pleasant, on airvo at 80% and 50 L/m flow HEAD: Normocephalic/atraumatic. EENT: PERRLA, EOMI, nonicteric. No neck masses, no JVD, no stridor. CHEST: No chest wall deformity. Symmetrical expansion. LUNGS:Minimal crackles at the bases. CVS: Regular rate and rhythm, normal S1 and S2, no gallops, no murmurs, no rubs ABDOMEN: Soft, nontender. No hepatosplenomegaly, normal bowel sounds, no guarding or rigidity. EXTREMITIES: No clubbing, no edema, no cyanosis, 2+ pulses and upper and lower extremities. MUSCULOSKELETAL: No deformities no limitations in range of motion. SKIN: No rashes CENTRAL NERVOUS SYSTEM:Alert oriented 3, no gross focal deficits PSYCHIATRIC:Normal mood, affect and normal mental status examination - Labs CBC & Chem 7: 05/26/20 03:46 05/26/20 03:46 Labs: Abnormal Lab Results - Last 24 Hours (Table) 05/25/20 05/25/20 05/25/20 Range/Units 14:36 17:47 21:30 WBC (3.8-10.6) k/uL Neutrophils # (1.3-7.7) k/uL Lymphocytes # (1.0-4.8) k/uL BUN (7-17) mg/dL Glucose (74-99) mg/dL POC Glucose (mg/dL) 266 H 238 H 294 H (75-99) mg/dL Lactate Dehydrogenase (313-618) U/L C-Reactive Protein (<10.0) mg/L 05/26/20 05/26/20 05/26/20 Range/Units 03:46 03:46 06:57 WBC 11.1 H (3.8-10.6) k/uL Neutrophils # 9.5 H (1.3-7.7) k/uL Lymphocytes # 0.7 L (1.0-4.8) k/uL BUN 48 H (7-17) mg/dL Glucose 139 H (74-99) mg/dL POC Glucose (mg/dL) 143 H (75-99) mg/dL Lactate Dehydrogenase 1543 H (313-618) U/L C-Reactive Protein 63.7 H (<10.0) mg/L 05/26/20 Range/Units 12:02 WBC (3.8-10.6) k/uL Neutrophils # (1.3-7.7) k/uL Lymphocytes # (1.0-4.8) k/uL BUN (7-17) mg/dL Glucose (74-99) mg/dL POC Glucose (mg/dL) 192 H (75-99) mg/dL Lactate Dehydrogenase (313-618) U/L C-Reactive Protein (<10.0) mg/L Microbiology - Last 24 Hours (Table) 05/24/20 18:00 Blood Culture - Preliminary Blood No Growth after 24 hours 05/24/20 17:53 Blood Culture - Preliminary Blood No Growth after 24 hours Assessment and Plan Assessment: Acute severe hypoxic respiratory failure secondary to covid 19 pneumonitis. Elevated inflammatory markers Elevated d-dimer but no pulmonary embolism on CT angiogram, patient is on Xarelto on a regular basis. Type 2 diabetes. History of permanent pacemaker implantation. History of hypothyroidism. History of degenerative joint disease. Recommendation: Continue present supportive care measures. Patient is out of the window for remdesivir Received actemra x 2 doses. Received convalescent plasma. Remains on the Covid 19 cocktail. Remains on steroids and multivitamins. Will transfer the patient out of the ICU to a regular medical floor. We'll continue to follow closely. Time with Patient: Less than 30
[2020-05-26 17:08] LABS: Glucose,Whole Blood 207 mg/dL (75-99)
[2020-05-26] MEDS: RIVAROXABAN 15 MG TAB PO SCH (17:09)
[2020-05-26 20:17] LABS: Glucose,Whole Blood 125 mg/dL (75-99)
[2020-05-26] MEDS: INSULIN DETEMIR (LEVEMIR) 100 UNIT/ML SYR SQ SCH (21:05)
[2020-05-26] MEDS: ATORVASTATIN 10 MG TAB PO SCH (21:05)
--- NOTE | 2020-05-26 23:37 | P.PN ---
Progress Note - Text Progress Note Date: 05/26/20 Chief Complaint: Short of breath History of presenting complaint: This is a pleasant 79-year-old patient, follows a Dr. Romero. Chronic stable medical conditions include atrial fibrillation, diabetes, hypothyroid, history of kidney stones. Ostial arthritis. Has a pacemaker. Patient presents increasing shortness of breath with minimal exertion. Chest pressure. No cough no fever no chills. Feeling very tired and weak and rundown. No body aches. No diarrhea. No loss of smell or taste. Patient be put on high flow oxygen. Is able to eat some food. Admitted with bilateral COVID 19 pneumonia. Severe. Started vitamin C vitamin D Pepcid steroids, home dose of Seroquel continued. Patient became more short of breath. Was moved to the ICU. Today-in the ICU. On high flow Airvo. Did tolerate some diet. Sitting up in bed. Feels a bit better. Short of breath Review of systems: Was done for constitutional, cardiovascular, GI, pulmonary. relevant finding as above Active Medications Ascorbic Acid (Ascorbic Acid 500 Mg Tab) 1,000 mg PO DAILY [facility] Last Admin: 05/26/20 09:11 Dose: 1,000 mg Documented by: Atorvastatin Calcium (Atorvastatin 10 Mg Tab) 10 mg PO [facility] Last Admin: 05/26/20 21:05 Dose: 10 mg Documented by: Cholecalciferol (Cholecalciferol 25 Mcg (1000 Iu) Tablet) 25 mcg PO DAILY [facility] Last Admin: 05/26/20 09:11 Dose: 25 mcg Documented by: Famotidine (Famotidine 20 Mg Tab) 20 mg PO BID [facility] Last Admin: 05/26/20 21:05 Dose: 20 mg Documented by: Furosemide (Furosemide 20 Mg Tab) 20 mg PO DAILY [facility] Last Admin: 05/26/20 09:12 Dose: Not Given Documented by: Insulin Aspart (Insulin Aspart (Novolog) 100 Unit/Ml Vial) 5 unit SQ AC-TID [facility] Last Admin: 05/26/20 17:09 Dose: 5 unit Documented by: Insulin Aspart (Insulin Aspart (Novolog) 100 Unit/Ml Vial) 0 unit SQ ACHS [facility]; Protocol Last Admin: 05/26/20 20:18 Dose: Not Given Documented by: Insulin Detemir (Insulin Detemir (Levemir) 100 Unit/Ml Syr) 9 unit SQ [facility] Last Admin: 05/26/20 21:05 Dose: 9 unit Documented by: Levothyroxine Sodium (Levothyroxine 25 Mcg Tab) 25 mcg PO DAILY@0630 [facility] Last Admin: 05/26/20 07:03 Dose: 25 mcg Documented by: Lisinopril (Lisinopril 5 Mg Tab) 5 mg PO DAILY [facility] Last Admin: 05/26/20 09:11 Dose: 5 mg Documented by: Metformin HCl (Metformin 500 Mg Tab) 500 mg PO BID-W/MEALS [facility] Last Admin: 05/26/20 17:09 Dose: 500 mg Documented by: Methylprednisolone Sodium Succinate (Methylprednisolone Sod Succi 40 Mg/Ml 1 Ml Vial) 40 mg IV Q8HR [facility] Last Admin: 05/26/20 23:02 Dose: 40 mg Documented by: Metoprolol Succinate (Metoprolol Succinate (Er) 100 Mg Tab.Er.24h) 150 mg PO BID [facility] Last Admin: 05/26/20 21:05 Dose: 150 mg Documented by: Miscellaneous Information (Pneumonia Protocol Utilized 1 Each [facility]) 1 each PO ONCE PRN PRN Reason: Per Protocol Rivaroxaban (Rivaroxaban 15 Mg Tab) 15 mg PO W/SUPPER [facility] Last Admin: 05/26/20 17:09 Dose: 15 mg Documented by: Zinc Sulfate (Zinc Sulfate 220 Mg Cap) 220 mg PO DAILY [facility] Last Admin: 05/26/20 09:11 Dose: 220 mg Documented by: Past medical history to include: Atrial fibrillation, diabetes, hypothyroid, kidney stones, Physical examination: VITAL SIGNS: 97.9, 65, 22, 160/61, 95% on 80% FiO2 GENERAL: Reclining in bed, on Airvo PSYCH: Alert and oriented x3; mood and affect anxious NEUROLOGICAL: Cranial nerves grossly intact; no facial asymmetry, moving all 4 limbs Rest of exam as per pulmonary and nursing INVESTIGATIONS, reviewed in the clinical context: May 26: WBC 11.1 hemoglobin 12.9 potassium 4.8 creatinine 1.01 CRP 63.7 WBC 11.6 hemoglobin 14.5 platelets 350 lymphocytes 0.7 D-dimer 3.87 ABG-pH 7.44 pO2 59 CO2 20 Potassium 5.1 BUN 29 creatinine 1.16 lactic acid 5.4 CRP 165.5 pro-calcitonin 0.42 Coronavirus [PCR]-detected EKG tracing personally reviewed by me-ventricle brace rhythm Chest CT-extensive bilateral comfort 80s of groundglass. Some chronic changes also. Possibly bronchiectasis. Some borderline enlarged mediastinal hilar lymph nodes. Negative for PE Chest x-ray film personally reviewed by me-cardiomegaly with infiltrates Assessment and plan: -Acute bilateral COVID 19 pneumonia, severe. on vitamin C, vitamin D, Pepcid, steroids, patient is chronically on xarelto.-Slow to respond -Acute severe hypoxic respiratory failure from above. Continues on irritable- 80% high flow. Slow to respond -Obesity BMI 39.5. Patient may follow outpatient weight loss measures -Diabetes mellitus type 2 chronically on insulin. Uncontrolled with hyperglycemia. Follow Accu-Cheks -Hyperlipidemia on Lipitor -Hypothyroid continue with Synthroid -Persistent atrial fibrillation patient on Toprol-XL. -Permanent pacemaker Care was discussed with the patient. Will be moved to the medical flow later today.
[2020-05-27] MEDS: LEVOTHYROXINE 25 MCG TAB PO SCH (05:30)
[2020-05-27 06:57] LABS: Glucose,Whole Blood 159 mg/dL (75-99)
[2020-05-27] MEDS: METOPROLOL SUCCINATE (ER) 100 MG TAB.ER.24H PO SCH ×2 (07:54→20:36)
[2020-05-27] MEDS: FAMOTIDINE 20 MG TAB PO SCH ×2 (07:54→20:36)
[2020-05-27] MEDS: metFORMIN 500 MG TAB PO SCH ×2 (07:54→16:57)
[2020-05-27] MEDS: FUROSEMIDE 20 MG TAB PO SCH (07:54)
[2020-05-27] MEDS: CHOLECALCIFEROL 25 MCG (1000 IU) TABLET PO SCH (07:55)
[2020-05-27] MEDS: ZINC SULFATE 220 MG CAP PO SCH (07:55)
[2020-05-27] MEDS: lisinopriL 5 MG TAB PO SCH (07:55)
[2020-05-27] MEDS: ASCORBIC ACID 500 MG TAB PO SCH (07:55)
[2020-05-27] MEDS: INSULIN ASPART (NovoLOG) 100 UNIT/ML VIAL SQ SCH ×7 (07:57→20:31)
[2020-05-27] MEDS: methylPREDNISolone SOD SUCCI 40 MG/ML 1 ML VIAL IV SCH ×3 (07:57→23:44)
[2020-05-27 11:27] LABS: Glucose,Whole Blood 136 mg/dL (75-99)
--- NOTE | 2020-05-27 15:23 | P.PN ---
Subjective Progress Note Date: 05/27/20 Principal diagnosis: Acute CoVID 19 pneumonitis 79-year-old white female patient that came into the emergency department on 05/24/2020 with complaints of shortness of breath for 2 days prior to presentation. The patient's was positive for COVID 19. Patient denied any fever, denied any chest discomfort, no loss of taste or smell, no abdominal pain, nausea vomiting or diarrhea. Chronic medical conditions include history of A. fib on Xarelto, diabetes mellitus type 2, hypothyroidism, lifetime nonsmoker, permanent pacemaker implantation. Chest x-ray shows stable patchy interstitial infiltrates. On presentation patient was on room air however her oxygen demand has quickly increased up to 12 L of oxygen per minute, and subsequently up to 15 L less than 24 hours. She remains afebrile. Patient tested positive for COVID 19. White blood cell count is 11.6, hemoglobin is 14.5, d-dimer is 3.8, B1 is 29, creatinine is 1.16, ferritin is 1165, LDH is 1680, CRP is 165.5, pro calcitonin level is 0.42. Blood gas was completed yesterday showing pO2 59, pCO2 of 28, and pH of 7.44 and this was on 100% FiO2. CTA chest showed no evidence of pulmonary embolism, and fairly extensive bilateral confluent areas of groundglass opacities. There are some underlying changes that are chronic given bronchiectasis in the left upper lobe and to a lesser degree in the left lower lobe. There was some borderline sized mediastinal and right hilar lymph nodes that are possibly reactive. Patient was given a dose of IV Decadron in the emergency department, it has been switched over to IV Solu-Medrol 40 mg every 8 hours, she is on Xarelto, Pepcid, vitamins. This morning she was placed on BiPAP support with pressures of 12/5 and FiO2 of 60%. Her breathing is labored, today's chest x-ray shows multifocal patchy airspace disease. Patient was reevaluated today on 05/26/2020, patient remains in the ICU, she is feeling better, breathing a bit easier, although her chest x-ray continues to show bilateral interstitial infiltrates consistent with Covid 19 pneumonitis. Patient is now on airvo at 50 L and 80% FiO2, her O2 saturation is 92%. Patient is also on IV Solu-Medrol, she is on Xarelto, she did receive actemra yesterday, and she also received Lasix. Patient is out of the window for remdesivir, she also received 1 unit of convalescence plasma. Clinically the patient looks more comfortable today compared to yesterday, of course she is still requiring significant amount of oxygen, I feel we can potentially transfer the patient back to a regular medical floor with the same FiO2 settings. CBC is relatively normal. Renal profile is normal. LDH is 1543 and C-reactive protein is 64 The patient is seen today 05/27/2020 in follow-up on the regular medical floor. She is currently sitting up in a chair at the bedside. Awake and alert in no acute distress. She is still requiring airflow high flow oxygen at 60 L and 91% O2 saturation to maintain O2 saturations in the low 90s. She is breathing a bit easier today compared to yesterday. She denies any worsening shortness of breath, cough or congestion. She did receive Actemra. Received 1 unit of con valescence plasma. Remains on IV Solu-Medrol. Anticoagulated with Xarelto. Vitamin supplements. Objective - Vital Signs Vital signs: Vital Signs Temp 98.2 F 05/27/20 13:56 Pulse 63 05/27/20 13:56 Resp 18 05/27/20 13:56 BP 140/76 05/27/20 13:56 Pulse Ox 96 05/27/20 13:56 Intake & Output 05/26/20 05/27/20 05/27/20 17:59 06:59 18:59 Intake Total Output Total Balance Intake: IV .9 Output: Urine Other: Voiding Method Indwelling Catheter - Exam GENERAL EXAM: Revealed an 79-year-old female, pleasant, on Airvo at 60 L and 91% FiO2 HEAD: Normocephalic/atraumatic. EENT: PERRLA, EOMI, nonicteric. No neck masses, no JVD, no stridor. CHEST: No chest wall deformity. Symmetrical expansion. LUNGS:Minimal crackles at the bases. CVS: Regular rate and rhythm, normal S1 and S2, no gallops, no murmurs, no rubs ABDOMEN: Soft, nontender. No hepatosplenomegaly, normal bowel sounds, no guarding or rigidity. EXTREMITIES: No clubbing, no edema, no cyanosis, 2+ pulses and upper and lower extremities. MUSCULOSKELETAL: No deformities no limitations in range of motion. SKIN: No rashes CENTRAL NERVOUS SYSTEM:Alert oriented 3, no gross focal deficits PSYCHIATRIC:Normal mood, affect and normal mental status examination - Labs CBC & Chem 7: 05/26/20 03:46 05/26/20 03:46 Labs: Abnormal Lab Results - Last 24 Hours (Table) 05/26/20 05/26/20 05/27/20 Range/Units 16:56 20:16 06:56 POC Glucose (mg/dL) 207 H 125 H 159 H (75-99) mg/dL 05/27/20 Range/Units 11:22 POC Glucose (mg/dL) 136 H (75-99) mg/dL Microbiology - Last 24 Hours (Table) 05/24/20 18:00 Blood Culture - Preliminary Blood No Growth after 48 hours 05/24/20 17:53 Blood Culture - Preliminary Blood No Growth after 48 hours Assessment and Plan Assessment: 1 Acute severe hypoxemic respiratory failure related to COVID 19 pneumonitis, and patient had a rapid deterioration in her oxygenation status since admission. Received Actemra, convalescent plasma 2 Elevated inflammatory markers related to the above 3 Elevated d-dimer, but no evidence of pulmonary embolism on CTA chest, patient takes Xarelto on a regular basis 4 Diabetes mellitus type 2 5 Chronic A. fib on Xarelto 6 Permanent pacemaker implantation 7 Hypothyroidism 8 Chronic kidney disease, unspecified 9 Osteoarthritis Plan: The patient was seen and evaluated by Dr. Mccabe Currently stable on AirVo high flow Titrate down as tolerated Anticoagulated with Xarelto Remains on IV Solu-Medrol, bronchodilators Received Actemra, convalescent plasma Repeat labs, chest x-ray in a.m. We'll continue to follow I, the cosigning physician, performed a history & physical examination of the patient. Lungs sounds with bibasilar crackles. Maintaining good O2 saturations in the 90s on AirVo high flow at 60 L/90% FiO2. I discussed the assessment and plan of care with my nurse practitioner, Alyssia Hernandez. I attest to the above note as dictated by her.
[2020-05-27 16:22] LABS: Glucose,Whole Blood 145 mg/dL (75-99)
[2020-05-27] MEDS: RIVAROXABAN 15 MG TAB PO SCH (16:57)
[2020-05-27] MEDS: ATORVASTATIN 10 MG TAB PO SCH (20:35)
[2020-05-27] MEDS: INSULIN DETEMIR (LEVEMIR) 100 UNIT/ML SYR SQ SCH (20:36)
[2020-05-27 20:38] LABS: Glucose,Whole Blood 212 mg/dL (75-99)
--- NOTE | 2020-05-27 21:58 | P.PN ---
Progress Note - Text Progress Note Date: 05/27/20 Chief Complaint: Short of breath History of presenting complaint: This is a pleasant 79-year-old patient, follows a Dr. Romero. Chronic stable medical conditions include atrial fibrillation, diabetes, hypothyroid, history of kidney stones. Ostial arthritis. Has a pacemaker. Patient presents increasing shortness of breath with minimal exertion. Chest pressure. No cough no fever no chills. Feeling very tired and weak and rundown. No body aches. No diarrhea. No loss of smell or taste. Patient be put on high flow oxygen. Is able to eat some food. Admitted with bilateral COVID 19 pneumonia. Severe. Started vitamin C vitamin D Pepcid steroids, home dose of Seroquel continued. Patient became more short of breath. Was moved to the ICU. Today-moved out to the medical floor. Remains on Airvo. Oral intake fair. Some shortness of breath at rest. Slight cough. Tired. Up in a chair. Review of systems: Was done for constitutional, cardiovascular, GI, pulmonary. relevant finding as above Active Medications Ascorbic Acid (Ascorbic Acid 500 Mg Tab) 1,000 mg PO DAILY [facility] Last Admin: 05/27/20 07:55 Dose: 1,000 mg Documented by: Atorvastatin Calcium (Atorvastatin 10 Mg Tab) 10 mg PO HS [facility] Last Admin: 05/27/20 20:35 Dose: 10 mg Documented by: Cholecalciferol (Cholecalciferol 25 Mcg (1000 Iu) Tablet) 25 mcg PO DAILY [facility] Last Admin: 05/27/20 07:55 Dose: 25 mcg Documented by: Famotidine (Famotidine 20 Mg Tab) 20 mg PO BID [facility] Last Admin: 05/27/20 20:36 Dose: 20 mg Documented by: Furosemide (Furosemide 20 Mg Tab) 20 mg PO DAILY [facility] Last Admin: 05/27/20 07:54 Dose: 20 mg Documented by: Insulin Aspart (Insulin Aspart (Novolog) 100 Unit/Ml Vial) 5 unit SQ AC-TID [facility] Last Admin: 05/27/20 16:57 Dose: 5 unit Documented by: Insulin Aspart (Insulin Aspart (Novolog) 100 Unit/Ml Vial) 0 unit SQ ACHS [facility]; Protocol Last Admin: 05/27/20 20:31 Dose: Not Given Documented by: Insulin Detemir (Insulin Detemir (Levemir) 100 Unit/Ml Syr) 9 unit SQ HS [facility] Last Admin: 05/27/20 20:36 Dose: 9 unit Documented by: Levothyroxine Sodium (Levothyroxine 25 Mcg Tab) 25 mcg PO DAILY@0630 [facility] Last Admin: 05/27/20 05:30 Dose: 25 mcg Documented by: Lisinopril (Lisinopril 5 Mg Tab) 5 mg PO DAILY [facility] Last Admin: 05/27/20 07:55 Dose: 5 mg Documented by: Metformin HCl (Metformin 500 Mg Tab) 500 mg PO BID-W/MEALS [facility] Last Admin: 05/27/20 16:57 Dose: 500 mg Documented by: Methylprednisolone Sodium Succinate (Methylprednisolone Sod Succi 40 Mg/Ml 1 Ml Vial) 40 mg IV Q8HR [facility] Last Admin: 05/27/20 16:57 Dose: 40 mg Documented by: Metoprolol Succinate (Metoprolol Succinate (Er) 100 Mg Tab.Er.24h) 150 mg PO BID [facility] Last Admin: 05/27/20 20:36 Dose: 150 mg Documented by: Miscellaneous Information (Pneumonia Protocol Utilized 1 Each [facility]) 1 each PO ONCE PRN PRN Reason: Per Protocol Rivaroxaban (Rivaroxaban 15 Mg Tab) 15 mg PO W/SUPPER [facility] Last Admin: 05/27/20 16:57 Dose: 15 mg Documented by: Zinc Sulfate (Zinc Sulfate 220 Mg Cap) 220 mg PO DAILY [facility] Last Admin: 05/27/20 07:55 Dose: 220 mg Documented by: Past medical history to include: Atrial fibrillation, diabetes, hypothyroid, kidney stones, Physical examination: VITAL SIGNS: 97.8, 56, 19, 149/66, 95% on 90% interval GENERAL: Reclining in chair, on Airvo PSYCH: Alert and oriented x3; mood and affect anxious NEUROLOGICAL: Cranial nerves grossly intact; no facial asymmetry, moving all 4 limbs Rest of exam as per pulmonary and nursing INVESTIGATIONS, reviewed in the clinical context: May 26: WBC 11.1 hemoglobin 12.9 potassium 4.8 creatinine 1.01 CRP 63.7 WBC 11.6 hemoglobin 14.5 platelets 350 lymphocytes 0.7 D-dimer 3.87 ABG-pH 7.44 pO2 59 CO2 20 Potassium 5.1 BUN 29 creatinine 1.16 lactic acid 5.4 CRP 165.5 pro-calcitonin 0.42 Coronavirus [PCR]-detected EKG tracing personally reviewed by me-ventricle brace rhythm Chest CT-extensive bilateral comfort 80s of groundglass. Some chronic changes also. Possibly bronchiectasis. Some borderline enlarged mediastinal hilar lymph nodes. Negative for PE Chest x-ray film personally reviewed by me-cardiomegaly with infiltrates Assessment and plan: -Acute bilateral COVID 19 pneumonia, severe. on vitamin C, vitamin D, Pepcid, steroids, patient is chronically on xarelto.-Slow to respond -Acute severe hypoxic respiratory failure from above. Continues on Airvo-90 % high flow. Slow to respond -Obesity BMI 39.5. Patient may follow outpatient weight loss measures -Diabetes mellitus type 2 chronically on insulin. Uncontrolled with hyperglycemia. Follow Accu-Cheks -Hyperlipidemia on Lipitor -Hypothyroid continue with Synthroid -Persistent atrial fibrillation patient on Toprol-XL. -Permanent pacemaker Care was discussed with the patient. Encouraged to use incentive spirometry. Follow labs
[2020-05-28] MEDS: LEVOTHYROXINE 25 MCG TAB PO SCH (04:59)
[2020-05-28 06:46] LABS: Glucose,Whole Blood 149 mg/dL (75-99)
[2020-05-28 07:11] LABS: C Reactive Protein 20.3 mg/L (<10.0)
--- NOTE | 2020-05-28 07:54 | XR ---
EXAMINATION TYPE: XR chest 1V portable DATE OF EXAM: 05/28/2020 Comparison: 05/26/2020 Clinical History: 79-year-old female CoVID pneumonia Findings: Left anterior chest wall pacemaker generator with 3 leads. Heart limits of normal in size. Patchy int erstitial and vague airspace opacities persist without significant change. No sizable pleural effusio n. Impression: Patchy bilateral infiltrates show no significant change.
[2020-05-28] MEDS: methylPREDNISolone SOD SUCCI 40 MG/ML 1 ML VIAL IV SCH ×2 (09:22→16:50)
[2020-05-28] MEDS: INSULIN ASPART (NovoLOG) 100 UNIT/ML VIAL SQ SCH ×7 (09:22→19:58)
[2020-05-28] MEDS: METOPROLOL SUCCINATE (ER) 100 MG TAB.ER.24H PO SCH ×2 (09:23→20:03)
[2020-05-28] MEDS: CHOLECALCIFEROL 25 MCG (1000 IU) TABLET PO SCH (09:24)
[2020-05-28] MEDS: metFORMIN 500 MG TAB PO SCH ×2 (09:24→16:50)
[2020-05-28] MEDS: lisinopriL 5 MG TAB PO SCH (09:24)
[2020-05-28] MEDS: ASCORBIC ACID 500 MG TAB PO SCH (09:24)
[2020-05-28] MEDS: ZINC SULFATE 220 MG CAP PO SCH (09:24)
[2020-05-28] MEDS: FUROSEMIDE 20 MG TAB PO SCH (09:24)
[2020-05-28] MEDS: FAMOTIDINE 20 MG TAB PO SCH ×2 (09:24→20:03)
[2020-05-28 11:28] LABS: Glucose,Whole Blood 331 mg/dL (75-99)
[2020-05-28 11:29] LABS: Glucose,Whole Blood 299 mg/dL (75-99)
--- NOTE | 2020-05-28 16:14 | P.PN ---
Subjective Progress Note Date: 05/28/20 Principal diagnosis: Acute COVID 19 pneumonitis 79-year-old white female patient that came into the emergency department on 05/24/2020 with complaints of shortness of breath for 2 days prior to presentation. The patient's was positive for COVID 19. Patient denied any fever, denied any chest discomfort, no loss of taste or smell, no abdominal pain, nausea vomiting or diarrhea. Chronic medical conditions include history of A. fib on Xarelto, diabetes mellitus type 2, hypothyroidism, lifetime nonsmoker, permanent pacemaker implantation. Chest x-ray shows stable patchy interstitial infiltrates. On presentation patient was on room air however her oxygen demand has quickly increased up to 12 L of oxygen per minute, and subsequently up to 15 L less than 24 hours. She remains afebrile. Patient tested positive for COVID 19. White blood cell count is 11.6, hemoglobin is 14.5, d-dimer is 3.8, B1 is 29, creatinine is 1.16, ferritin is 1165, LDH is 1680, CRP is 165.5, pro calcitonin level is 0.42. Blood gas was completed yesterday showing pO2 59, pCO2 of 28, and pH of 7.44 and this was on 100% FiO2. CTA chest showed no evidence of pulmonary embolism, and fairly extensive bilateral confluent areas of groundglass opacities. There are some underlying changes that are chronic given bronchiectasis in the left upper lobe and to a lesser degree in the left lower lobe. There was some borderline sized mediastinal and right hilar lymph nodes that are possibly reactive. Patient was given a dose of IV Decadron in the emergency department, it has been switched over to IV Solu-Medrol 40 mg every 8 hours, she is on Xarelto, Pepcid, vitamins. This morning she was placed on BiPAP support with pressures of 12/5 and FiO2 of 60%. Her breathing is labored, today's chest x-ray shows multifocal patchy airspace disease. Patient was reevaluated today on 05/26/2020, patient remains in the ICU, she is feeling better, breathing a bit easier, although her chest x-ray continues to show bilateral interstitial infiltrates consistent with Covid 19 pneumonitis. Patient is now on airvo at 50 L and 80% FiO2, her O2 saturation is 92%. Patient is also on IV Solu-Medrol, she is on Xarelto, she did receive actemra yesterday, and she also received Lasix. Patient is out of the window for remdesivir, she also received 1 unit of convalescence plasma. Clinically the patient looks more comfortable today compared to yesterday, of course she is still requiring significant amount of oxygen, I feel we can potentially transfer the patient back to a regular medical floor with the same FiO2 settings. CBC is relatively normal. Renal profile is normal. LDH is 1543 and C-reactive protein is 64 The patient is seen today 05/27/2020 in follow-up on the regular medical floor. She is currently sitting up in a chair at the bedside. Awake and alert in no acute distress. She is still requiring airflow high flow oxygen at 60 L and 91% O2 saturation to maintain O2 saturations in the low 90s. She is breathing a bit easier today compared to yesterday. She denies any worsening shortness of breath, cough or congestion. She did receive Actemra. Received 1 unit of con valescence plasma. Remains on IV Solu-Medrol. Anticoagulated with Xarelto. Vitamin supplements. On 05/28/2020 patient seen in follow-up on medical surgical floor, she remains on high flow oxygen per Airvo, currently at 60 L and 80%, and pulse ox is 92%, however patient does desaturate very easily with any exertion, she's had no fever or chills, blood pressures been stable. She has mild to monitor shortness of breath with conversation, but no acute distress, today's chest x-ray shows pacer bilateral infiltrates stable in appearance. Patient remains on IV Solu- Medrol currently 40 mg every 8 hours, patient is on oral Xarelto 15 mg with supper, and patient is status post transfusion with 2 doses Actemra 400 mg times two. She also received 1 unit of convalescence plasma. His labs have been reviewed, d-dimer 7.04, LDH and CRP are improving. Objective - Vital Signs Vital signs: Vital Signs Temp 98.3 F 05/28/20 13:30 Pulse 73 05/28/20 13:30 Resp 19 05/28/20 13:30 BP 133/78 05/28/20 13:30 Pulse Ox 96 05/28/20 15:33 Intake & Output 05/27/20 05/28/20 05/28/20 18:59 06:59 18:59 Output Total 200 Balance -200 Output: Urine 200 Other: Voiding Method Indwelling Catheter Bedside Commode # Voids 3 2 # Bowel Movements 1 - Exam GENERAL EXAM: Alert, active, very pleasant, 79-year-old white female, on 60 L of oxygen and FiO2 of 80% per high flow oxygen device Airvo comfortable in no apparent distress. HEAD: Normocephalic/atraumatic. EYES: Normal reaction of pupils, equal size. Conjunctiva pink, sclera white. NOSE: Clear with pink turbinates. THROAT: No erythema or exudates. NECK: No masses, no JVD, no thyroid enlargement, no adenopathy. CHEST: No chest wall deformity. Symmetrical expansion. LUNGS: Equal air entry with diffuse crackles CVS: Regular rate and rhythm, normal S1 and S2, no gallops, no murmurs, no rubs ABDOMEN: Soft, nontender. No hepatosplenomegaly, normal bowel sounds, no guarding or rigidity. EXTREMITIES: No clubbing, no edema, no cyanosis, 2+ pulses and upper and lower extremities. MUSCULOSKELETAL: Muscle strength and tone normal. SPINE: No scoliosis or deformity SKIN: No rashes CENTRAL NERVOUS SYSTEM: Alert and oriented -3. No focal deficits, tone is normal in all 4 extremities. PSYCHIATRIC: Alert and oriented -3. Appropriate affect. Intact judgment and insight. - Labs CBC & Chem 7: 05/26/20 03:46 05/26/20 03:46 Labs: Abnormal Lab Results - Last 24 Hours (Table) 05/27/20 05/27/20 05/28/20 Range/Units 16:21 20:27 06:30 D-Dimer 7.04 H (<0.60) mg/L FEU POC Glucose (mg/dL) 145 H 212 H (75-99) mg/dL Lactate Dehydrogenase (313-618) U/L C-Reactive Protein (<10.0) mg/L 05/28/20 05/28/20 05/28/20 Range/Units 06:30 06:45 11:27 D-Dimer (<0.60) mg/L FEU POC Glucose (mg/dL) 149 H 331 H (75-99) mg/dL Lactate Dehydrogenase 1442 H (313-618) U/L C-Reactive Protein 20.3 H (<10.0) mg/L 05/28/20 Range/Units 11:28 D-Dimer (<0.60) mg/L FEU POC Glucose (mg/dL) 299 H (75-99) mg/dL Lactate Dehydrogenase (313-618) U/L C-Reactive Protein (<10.0) mg/L Microbiology - Last 24 Hours (Table) 05/24/20 18:00 Blood Culture - Preliminary Blood No Growth after 72 hours 05/24/20 17:53 Blood Culture - Preliminary Blood No Growth after 72 hours Assessment and Plan Plan: Assessment: #1. Acute severe hypoxemic respiratory failure related to COVID 19 pneumonitis, and patient had a rapid deterioration in her oxygenation status since admission. Patient had exposure to COVID 19 positive . Onset of symptoms with 7 days prior to presentation. Patient is status post 1 unit of convalescent plasma, 2 doses of Actemra 400 mg #2. Elevated inflammatory markers related to the above #3. Elevated d-dimer, but no evidence of pulmonary embolism on CTA chest, patient takes Xarelto on a regular basis #4. Diabetes mellitus type 2 #5. Chronic A. fib on Xarelto #6. Permanent pacemaker implantation #7. Hypothyroidism #8. Chronic kidney disease, unspecified #9. Osteoarthritis Plan: Continue weaning FiO2 to keep O2 sat at or above 90%, continue oral anticoagulation, inflammatory markers are improving, patient still requires high flow oxygen per Airvo, continue IV steroids. Today's chest x-ray has been not ed, we'll continue to follow patient's clinical course closely. Prognosis is guarded I performed a history & physical examination of the patient and discussed their management with my nurse practitioner, Francheska Metz. I reviewed the nurse practitioner's note and agree with the documented findings and plan of care. Lung sounds are positive for diminished breath sounds diffuse crackles. The findings and the impression was discussed with the patient. I attest to the documentation by the nurse practitioner. Time with Patient: Less than 30
[2020-05-28 16:24] LABS: Glucose,Whole Blood 100 mg/dL (75-99)
[2020-05-28] MEDS: RIVAROXABAN 15 MG TAB PO SCH (16:50)
[2020-05-28 19:58] LABS: Glucose,Whole Blood 99 mg/dL (75-99)
[2020-05-28] MEDS: ATORVASTATIN 10 MG TAB PO SCH (20:03)
[2020-05-28] MEDS: INSULIN DETEMIR (LEVEMIR) 100 UNIT/ML SYR SQ SCH (20:15)
--- NOTE | 2020-05-28 23:49 | P.PN ---
Progress Note - Text Progress Note Date: 05/28/20 Chief Complaint: Short of breath History of presenting complaint: This is a pleasant 79-year-old patient, follows a Dr. Romero. Chronic stable medical conditions include atrial fibrillation, diabetes, hypothyroid, history of kidney stones. Ostial arthritis. Has a pacemaker. Patient presents increasing shortness of breath with minimal exertion. Chest pressure. No cough no fever no chills. Feeling very tired and weak and rundown. No body aches. No diarrhea. No loss of smell or taste. Patient be put on high flow oxygen. Is able to eat some food. Admitted with bilateral COVID 19 pneumonia. Severe. Started vitamin C vitamin D Pepcid steroids, home dose of Seroquel continued. Patient became more short of breath. Was moved to the ICU. Today-up in a chair. Reclining Oral intake fair. Remains on Airvo. Short of breath at rest. Review of systems: Was done for constitutional, cardiovascular, GI, pulmonary. relevant finding as above Active Medications Ascorbic Acid (Ascorbic Acid 500 Mg Tab) 1,000 mg PO DAILY [facility] Last Admin: 05/28/20 09:24 Dose: 1,000 mg Documented by: Atorvastatin Calcium (Atorvastatin 10 Mg Tab) 10 mg PO [facility] Last Admin: 05/28/20 20:03 Dose: 10 mg Documented by: Cholecalciferol (Cholecalciferol 25 Mcg (1000 Iu) Tablet) 25 mcg PO DAILY [facility] Last Admin: 05/28/20 09:24 Dose: 25 mcg Documented by: Famotidine (Famotidine 20 Mg Tab) 20 mg PO BID [facility] Last Admin: 05/28/20 20:03 Dose: 20 mg Documented by: Furosemide (Furosemide 20 Mg Tab) 20 mg PO DAILY [facility] Last Admin: 05/28/20 09:24 Dose: 20 mg Documented by: Insulin Aspart (Insulin Aspart (Novolog) 100 Unit/Ml Vial) 5 unit SQ AC-TID [facility] Last Admin: 05/28/20 17:45 Dose: 5 unit Documented by: Insulin Aspart (Insulin Aspart (Novolog) 100 Unit/Ml Vial) 0 unit SQ ACHS [facility]; Protocol Last Admin: 05/28/20 19:58 Dose: Not Given Documented by: Insulin Detemir (Insulin Detemir (Levemir) 100 Unit/Ml Syr) 9 unit SQ [facility] Last Admin: 05/28/20 20:15 Dose: Not Given Documented by: Levothyroxine Sodium (Levothyroxine 25 Mcg Tab) 25 mcg PO DAILY@0630 [facility] Last Admin: 05/28/20 04:59 Dose: 25 mcg Documented by: Lisinopril (Lisinopril 5 Mg Tab) 5 mg PO DAILY [facility] Last Admin: 05/28/20 09:24 Dose: 5 mg Documented by: Metformin HCl (Metformin 500 Mg Tab) 500 mg PO BID-W/MEALS [facility] Last Admin: 05/28/20 16:50 Dose: 500 mg Documented by: Methylprednisolone Sodium Succinate (Methylprednisolone Sod Succi 40 Mg/Ml 1 Ml Vial) 40 mg IV Q8HR [facility] Last Admin: 05/28/20 16:50 Dose: 40 mg Documented by: Metoprolol Succinate (Metoprolol Succinate (Er) 100 Mg Tab.Er.24h) 150 mg PO BID [facility] Last Admin: 05/28/20 20:03 Dose: 150 mg Documented by: Miscellaneous Information (Pneumonia Protocol Utilized 1 Each [facility]) 1 each PO ONCE PRN PRN Reason: Per Protocol Rivaroxaban (Rivaroxaban 15 Mg Tab) 15 mg PO W/SUPPER [facility] Last Admin: 05/28/20 16:50 Dose: 15 mg Documented by: Zinc Sulfate (Zinc Sulfate 220 Mg Cap) 220 mg PO DAILY [facility] Last Admin: 05/28/20 09:24 Dose: 220 mg Documented by: Past medical history to include: Atrial fibrillation, diabetes, hypothyroid, kidney stones, Physical examination: VITAL SIGNS: 98.3, 73, 19, 133 was 78, 92% on 75% Airvo GENERAL: Reclining in chair, on Airvo , short of breath PSYCH: Alert and oriented x3; mood and affect anxious NEUROLOGICAL: Cranial nerves grossly intact; no facial asymmetry, moving all 4 limbs Rest of exam as per pulmonary and nursing INVESTIGATIONS, reviewed in the clinical context: May 28: D-dimer 7.04 CRP 20.3 May 26: WBC 11.1 hemoglobin 12.9 potassium 4.8 creatinine 1.01 CRP 63.7 WBC 11.6 hemoglobin 14.5 platelets 350 lymphocytes 0.7 D-dimer 3.87 ABG-pH 7.44 pO2 59 CO2 20 Potassium 5.1 BUN 29 creatinine 1.16 lactic acid 5.4 CRP 165.5 pro-calcitonin 0.42 Coronavirus [PCR]-detected EKG tracing personally reviewed by me-ventricle brace rhythm Chest CT-extensive bilateral comfort 80s of groundglass. Some chronic changes also. Possibly bronchiectasis. Some borderline enlarged mediastinal hilar lymph nodes. Negative for PE Chest x-ray film personally reviewed by me-cardiomegaly with infiltrates Assessment and plan: -Acute bilateral COVID 19 pneumonia, severe. on vitamin C, vitamin D, Pepcid, steroids, patient is chronically on xarelto.-Slow to respond -Acute severe hypoxic respiratory failure from above. Continues on Airvo-75 % high flow. Slow to respond -Obesity BMI 39.5. Patient may follow outpatient weight loss measures -Diabetes mellitus type 2 chronically on insulin. Uncontrolled with hyperglycemia. Follow Accu-Cheks -Hyperlipidemia on Lipitor -Hypothyroid continue with Synthroid -Persistent atrial fibrillation patient on Toprol-XL. -Permanent pacemaker Care was discussed with the patient. Encouraged to use incentive spirometry. Follow
[2020-05-29] MEDS: methylPREDNISolone SOD SUCCI 40 MG/ML 1 ML VIAL IV SCH ×3 (00:08→17:54)
[2020-05-29] MEDS: LEVOTHYROXINE 25 MCG TAB PO SCH (05:16)
[2020-05-29 07:13] LABS: Glucose,Whole Blood 167 mg/dL (75-99)
[2020-05-29] MEDS: FAMOTIDINE 20 MG TAB PO SCH ×2 (07:52→20:59)
[2020-05-29] MEDS: ASCORBIC ACID 500 MG TAB PO SCH (07:52)
[2020-05-29] MEDS: METOPROLOL SUCCINATE (ER) 100 MG TAB.ER.24H PO SCH ×2 (07:53→20:59)
[2020-05-29] MEDS: FUROSEMIDE 20 MG TAB PO SCH (07:53)
[2020-05-29] MEDS: CHOLECALCIFEROL 25 MCG (1000 IU) TABLET PO SCH (07:53)
[2020-05-29] MEDS: metFORMIN 500 MG TAB PO SCH ×2 (07:53→17:54)
[2020-05-29] MEDS: ZINC SULFATE 220 MG CAP PO SCH (07:54)
[2020-05-29] MEDS: lisinopriL 5 MG TAB PO SCH (07:54)
[2020-05-29] MEDS: INSULIN ASPART (NovoLOG) 100 UNIT/ML VIAL SQ SCH ×7 (07:54→21:00)
[2020-05-29 11:21] LABS: Glucose,Whole Blood 246 mg/dL (75-99)
--- NOTE | 2020-05-29 14:25 | P.PN ---
Subjective Progress Note Date: 05/29/20 Principal diagnosis: Acute COVID 19 pneumonitis 79-year-old white female patient that came into the emergency department on 05/24/2020 with complaints of shortness of breath for 2 days prior to presentation. The patient's was positive for COVID 19. Patient denied any fever, denied any chest discomfort, no loss of taste or smell, no abdominal pain, nausea vomiting or diarrhea. Chronic medical conditions include history of A. fib on Xarelto, diabetes mellitus type 2, hypothyroidism, lifetime nonsmoker, permanent pacemaker implantation. Chest x-ray shows stable patchy interstitial infiltrates. On presentation patient was on room air however her oxygen demand has quickly increased up to 12 L of oxygen per minute, and subsequently up to 15 L less than 24 hours. She remains afebrile. Patient tested positive for COVID 19. White blood cell count is 11.6, hemoglobin is 14.5, d-dimer is 3.8, B1 is 29, creatinine is 1.16, ferritin is 1165, LDH is 1680, CRP is 165.5, pro calcitonin level is 0.42. Blood gas was completed yesterday showing pO2 59, pCO2 of 28, and pH of 7.44 and this was on 100% FiO2. CTA chest showed no evidence of pulmonary embolism, and fairly extensive bilateral confluent areas of groundglass opacities. There are some underlying changes that are chronic given bronchiectasis in the left upper lobe and to a lesser degree in the left lower lobe. There was some borderline sized mediastinal and right hilar lymph nodes that are possibly reactive. Patient was given a dose of IV Decadron in the emergency department, it has been switched over to IV Solu-Medrol 40 mg every 8 hours, she is on Xarelto, Pepcid, vitamins. This morning she was placed on BiPAP support with pressures of 12/5 and FiO2 of 60%. Her breathing is labored, today's chest x-ray shows multifocal patchy airspace disease. Patient was reevaluated today on 05/26/2020, patient remains in the ICU, she is feeling better, breathing a bit easier, although her chest x-ray continues to show bilateral interstitial infiltrates consistent with Covid 19 pneumonitis. Patient is now on airvo at 50 L and 80% FiO2, her O2 saturation is 92%. Patient is also on IV Solu-Medrol, she is on Xarelto, she did receive actemra yesterday, and she also received Lasix. Patient is out of the window for remdesivir, she also received 1 unit of convalescence plasma. Clinically the patient looks more comfortable today compared to yesterday, of course she is still requiring significant amount of oxygen, I feel we can potentially transfer the patient back to a regular medical floor with the same FiO2 settings. CBC is relatively normal. Renal profile is normal. LDH is 1543 and C-reactive protein is 64 The patient is seen today 05/27/2020 in follow-up on the regular medical floor. She is currently sitting up in a chair at the bedside. Awake and alert in no acute distress. She is still requiring airflow high flow oxygen at 60 L and 91% O2 saturation to maintain O2 saturations in the low 90s. She is breathing a bit easier today compared to yesterday. She denies any worsening shortness of breath, cough or congestion. She did receive Actemra. Received 1 unit of con valescence plasma. Remains on IV Solu-Medrol. Anticoagulated with Xarelto. Vitamin supplements. On 05/28/2020 patient seen in follow-up on medical surgical floor, she remains on high flow oxygen per Airvo, currently at 60 L and 80%, and pulse ox is 92%, however patient does desaturate very easily with any exertion, she's had no fever or chills, blood pressures been stable. She has mild to monitor shortness of breath with conversation, but no acute distress, today's chest x-ray shows pacer bilateral infiltrates stable in appearance. Patient remains on IV Solu- Medrol currently 40 mg every 8 hours, patient is on oral Xarelto 15 mg with supper, and patient is status post transfusion with 2 doses Actemra 400 mg times two. She also received 1 unit of convalescence plasma. His labs have been reviewed, d-dimer 7.04, LDH and CRP are improving. On 05/29/2020 patient seen in follow-up on medical floor, she remains on high flow oxygen per Airvo, with 60 L, but FiO2 is down to 70%, with pulse ox of 92- 94%, patient does desaturate to 70s quite a easily with any exertion, but she is breathing comfortably at rest. Denies any chest discomfort, she is awake and alert, oriented 3, she has had no fever or chills. No new chest x-ray today, is on IV Solu-Medrol 40 mg every 8 hours, patient is on Xarelto on dose 15 mg once daily, d-dimer is improving, down to 5.76 today, CRP is down to 11.8. No nausea vomiting or diarrhea, patient is tolerating oral diet. Blood cultures show no growth Objective - Vital Signs Vital signs: Vital Signs Temp 97.9 F 05/29/20 10:00 Pulse 93 05/29/20 10:00 Resp 18 05/29/20 10:00 BP 144/85 05/29/20 10:00 Pulse Ox 92 L 05/29/20 10:00 Intake & Output 05/28/20 05/29/20 05/29/20 18:59 06:59 18:59 Other: Voiding Method Bedside Commode # Voids 3 # Bowel Movements 1 3 1 - Exam GENERAL EXAM: Alert, active, very pleasant, 79-year-old white female, on 60 L of oxygen and FiO2 of 70% per high flow oxygen device Airvo comfortable in no apparent distress. HEAD: Normocephalic/atraumatic. EYES: Normal reaction of pupils, equal size. Conjunctiva pink, sclera white. NOSE: Clear with pink turbinates. THROAT: No erythema or exudates. NECK: No masses, no JVD, no thyroid enlargement, no adenopathy. CHEST: No chest wall deformity. Symmetrical expansion. LUNGS: Equal air entry with diffuse crackles CVS: Regular rate and rhythm, normal S1 and S2, no gallops, no murmurs, no rubs ABDOMEN: Soft, nontender. No hepatosplenomegaly, normal bowel sounds, no guarding or rigidity. EXTREMITIES: No clubbing, no edema, no cyanosis, 2+ pulses and upper and lower extremities. MUSCULOSKELETAL: Muscle strength and tone normal. SPINE: No scoliosis or deformity SKIN: No rashes CENTRAL NERVOUS SYSTEM: Alert and oriented -3. No focal deficits, tone is normal in all 4 extremities. PSYCHIATRIC: Alert and oriented -3. Appropriate affect. Intact judgment and insight. - Labs CBC & Chem 7: 05/26/20 03:46 05/26/20 03:46 Labs: Abnormal Lab Results - Last 24 Hours (Table) 05/28/20 05/29/20 05/29/20 Range/Units 16:20 07:08 10:05 D-Dimer 5.76 H (<0.60) mg/L FEU POC Glucose (mg/dL) 100 H 167 H (75-99) mg/dL C-Reactive Protein (<10.0) mg/L 05/29/20 05/29/20 Range/Units 10:05 11:20 D-Dimer (<0.60) mg/L FEU POC Glucose (mg/dL) 246 H (75-99) mg/dL C-Reactive Protein 11.8 H (<10.0) mg/L Microbiology - Last 24 Hours (Table) 05/24/20 18:00 Blood Culture - Preliminary Blood No Growth after 96 hours 05/24/20 17:53 Blood Culture - Preliminary Blood No Growth after 96 hours Assessment and Plan Plan: Assessment: #1. Acute severe hypoxemic respiratory failure related to COVID 19 pneumonitis, and patient had a rapid deterioration in her oxygenation status since admission. Patient had exposure to COVID 19 positive . Onset of symptoms with 7 days prior to presentation. Patient is status post 1 unit of convalescent plasma, 2 doses of Actemra 400 mg #2. Elevated inflammatory markers related to the above #3. Elevated d-dimer, but no evidence of pulmonary embolism on CTA chest, patient takes Xarelto on a regular basis #4. Diabetes mellitus type 2 #5. Chronic A. fib on Xarelto #6. Permanent pacemaker implantation #7. Hypothyroidism #8. Chronic kidney disease, unspecified #9. Osteoarthritis Plan: Continue IV steroids, continue weaning FiO2 to keep O2 sat at or above 90%, and inflammatory markers are improving, d-dimer is trending down, we'll continue to follow patient's clinical course closely, and make further recommendations I performed a history & physical examination of the patient and discussed their management with my nurse practitioner, Francheska Metz. I reviewed the nurse practitioner's note and agree with the documented findings and plan of care. L david sounds are positive for diminished breath sounds diffuse crackles. The findings and the impression was discussed with the patient. I attest to the documentation by the nurse practitioner. Time with Patient: Less than 30
[2020-05-29 16:55] LABS: Glucose,Whole Blood 132 mg/dL (75-99)
[2020-05-29] MEDS: RIVAROXABAN 15 MG TAB PO SCH (17:54)
[2020-05-29 20:21] LABS: Glucose,Whole Blood 111 mg/dL (75-99)
[2020-05-29] MEDS: ATORVASTATIN 10 MG TAB PO SCH (20:59)
[2020-05-29] MEDS: INSULIN DETEMIR (LEVEMIR) 100 UNIT/ML SYR SQ SCH (21:00)
--- NOTE | 2020-05-29 23:34 | P.PN ---
Progress Note - Text Progress Note Date: 05/29/20 Chief Complaint: Short of breath History of presenting complaint: This is a pleasant 79-year-old patient, follows a Dr. Romero. Chronic stable medical conditions include atrial fibrillation, diabetes, hypothyroid, history of kidney stones. Ostial arthritis. Has a pacemaker. Patient presents increasing shortness of breath with minimal exertion. Chest pressure. No cough no fever no chills. Feeling very tired and weak and rundown. No body aches. No diarrhea. No loss of smell or taste. Patient be put on high flow oxygen. Is able to eat some food. Admitted with bilateral COVID 19 pneumonia. Severe. Started vitamin C vitamin D Pepcid steroids, home dose of Seroquel continued. Patient became more short of breath. Was moved to the ICU. Moved back to the medical floor. Today-up in a chair. Remains on high flow Airvo. Oral intake fair. Short of breath. Review of systems: Was done for constitutional, cardiovascular, GI, pulmonary. relevant finding as above Active Medications Ascorbic Acid (Ascorbic Acid 500 Mg Tab) 1,000 mg PO DAILY [facility] Last Admin: 05/29/20 07:52 Dose: 1,000 mg Documented by: Atorvastatin Calcium (Atorvastatin 10 Mg Tab) 10 mg PO [facility] Last Admin: 05/29/20 20:59 Dose: 10 mg Documented by: Cholecalciferol (Cholecalciferol 25 Mcg (1000 Iu) Tablet) 25 mcg PO DAILY [facility] Last Admin: 05/29/20 07:53 Dose: 25 mcg Documented by: Famotidine (Famotidine 20 Mg Tab) 20 mg PO BID [facility] Last Admin: 05/29/20 20:59 Dose: 20 mg Documented by: Furosemide (Furosemide 20 Mg Tab) 20 mg PO DAILY [facility] Last Admin: 05/29/20 07:53 Dose: 20 mg Documented by: Insulin Aspart (Insulin Aspart (Novolog) 100 Unit/Ml Vial) 5 unit SQ AC-TID [facility] Last Admin: 05/29/20 17:50 Dose: Not Given Documented by: Insulin Aspart (Insulin Aspart (Novolog) 100 Unit/Ml Vial) 0 unit SQ ACHS [facility]; Protocol Last Admin: 05/29/20 21:00 Dose: Not Given Documented by: Insulin Detemir (Insulin Detemir (Levemir) 100 Unit/Ml Syr) 9 unit SQ HS [facility] Last Admin: 05/29/20 21:00 Dose: 9 unit Documented by: Levothyroxine Sodium (Levothyroxine 25 Mcg Tab) 25 mcg PO DAILY@0630 [facility] Last Admin: 05/29/20 05:16 Dose: 25 mcg Documented by: Lisinopril (Lisinopril 5 Mg Tab) 5 mg PO DAILY [facility] Last Admin: 05/29/20 07:54 Dose: 5 mg Documented by: Metformin HCl (Metformin 500 Mg Tab) 500 mg PO BID-W/MEALS [facility] Last Admin: 05/29/20 17:54 Dose: 500 mg Documented by: Methylprednisolone Sodium Succinate (Methylprednisolone Sod Succi 40 Mg/Ml 1 Ml Vial) 40 mg IV Q8HR [facility] Last Admin: 05/29/20 17:54 Dose: 40 mg Documented by: Metoprolol Succinate (Metoprolol Succinate (Er) 100 Mg Tab.Er.24h) 150 mg PO BID [facility] Last Admin: 05/29/20 20:59 Dose: 150 mg Documented by: Miscellaneous Information (Pneumonia Protocol Utilized 1 Each [facility]) 1 each PO ONCE PRN PRN Reason: Per Protocol Rivaroxaban (Rivaroxaban 15 Mg Tab) 15 mg PO W/SUPPER [facility] Last Admin: 05/29/20 17:54 Dose: 15 mg Documented by: Zinc Sulfate (Zinc Sulfate 220 Mg Cap) 220 mg PO DAILY [facility] Last Admin: 05/29/20 07:54 Dose: 220 mg Documented by: Past medical history to include: Atrial fibrillation, diabetes, hypothyroid, kidney stones, Physical examination: VITAL SIGNS: 97.6, 60, 18, 129/75, 91% on 70% FiO2 Airvo GENERAL: Reclining in chair, on Airvo , short of breath PSYCH: Alert and oriented x3; mood and affect anxious NEUROLOGICAL: Cranial nerves grossly intact; no facial asymmetry, moving all 4 limbs Rest of exam as per pulmonary and nursing INVESTIGATIONS, reviewed in the clinical context: May 29: D-dimer 5.76 CRP 11.8 May 28: D-dimer 7.04 CRP 20.3 May 26: WBC 11.1 hemoglobin 12.9 potassium 4.8 creatinine 1.01 CRP 63.7 WBC 11.6 hemoglobin 14.5 platelets 350 lymphocytes 0.7 D-dimer 3.87 ABG-pH 7.44 pO2 59 CO2 20 Potassium 5.1 BUN 29 creatinine 1.16 lactic acid 5.4 CRP 165.5 pro-calcitonin 0.42 Coronavirus [PCR]-detected EKG tracing personally reviewed by me-ventricle brace rhythm Chest CT-extensive bilateral comfort 80s of groundglass. Some chronic changes also. Possibly bronchiectasis. Some borderline enlarged mediastinal hilar lymph nodes. Negative for PE Chest x-ray film personally reviewed by me-cardiomegaly with infiltrates Assessment and plan: -Acute bilateral COVID 19 pneumonia, severe. on vitamin C, vitamin D, Pepcid, steroids, patient is chronically on xarelto.-Slow to respond -Acute severe hypoxic respiratory failure from above. Continues on Airvo-70 % high flow. Slow to respond -Obesity BMI 39.5. Patient may follow outpatient weight loss measures -Diabetes mellitus type 2 chronically on insulin. Uncontrolled with hyperglycemia. Follow Accu-Cheks -Hyperlipidemia on Lipitor -Hypothyroid continue with Synthroid -Persistent atrial fibrillation patient on Toprol-XL. -Permanent pacemaker Care was discussed with the patient. Follow with pulmonary and ID
[2020-05-30] MEDS: methylPREDNISolone SOD SUCCI 40 MG/ML 1 ML VIAL IV SCH ×4 (00:04→23:18)
[2020-05-30] MEDS: LEVOTHYROXINE 25 MCG TAB PO SCH (05:36)
[2020-05-30 07:04] LABS: Glucose,Whole Blood 181 mg/dL (75-99)
[2020-05-30] MEDS: ZINC SULFATE 220 MG CAP PO SCH (08:10)
[2020-05-30] MEDS: METOPROLOL SUCCINATE (ER) 100 MG TAB.ER.24H PO SCH ×2 (08:10→21:15)
[2020-05-30] MEDS: lisinopriL 5 MG TAB PO SCH (08:11)
[2020-05-30] MEDS: FAMOTIDINE 20 MG TAB PO SCH ×2 (08:12→21:15)
[2020-05-30] MEDS: FUROSEMIDE 20 MG TAB PO SCH (08:12)
[2020-05-30] MEDS: INSULIN ASPART (NovoLOG) 100 UNIT/ML VIAL SQ SCH ×7 (08:12→21:15)
[2020-05-30] MEDS: ASCORBIC ACID 500 MG TAB PO SCH (08:12)
[2020-05-30] MEDS: metFORMIN 500 MG TAB PO SCH ×2 (08:12→17:32)
[2020-05-30] MEDS: CHOLECALCIFEROL 25 MCG (1000 IU) TABLET PO SCH (08:12)
[2020-05-30 12:02] LABS: Glucose,Whole Blood 282 mg/dL (75-99)
--- NOTE | 2020-05-30 14:18 | P.PN ---
Subjective Progress Note Date: 05/30/20 Principal diagnosis: Acute COVID 19 pneumonitis 79-year-old white female patient that came into the emergency department on 05/24/2020 with complaints of shortness of breath for 2 days prior to presentation. The patient's was positive for COVID 19. Patient denied any fever, denied any chest discomfort, no loss of taste or smell, no abdominal pain, nausea vomiting or diarrhea. Chronic medical conditions include history of A. fib on Xarelto, diabetes mellitus type 2, hypothyroidism, lifetime nonsmoker, permanent pacemaker implantation. Chest x-ray shows stable patchy interstitial infiltrates. On presentation patient was on room air however her oxygen demand has quickly increased up to 12 L of oxygen per minute, and subsequently up to 15 L less than 24 hours. She remains afebrile. Patient tested positive for COVID 19. White blood cell count is 11.6, hemoglobin is 14.5, d-dimer is 3.8, B1 is 29, creatinine is 1.16, ferritin is 1165, LDH is 1680, CRP is 165.5, pro calcitonin level is 0.42. Blood gas was completed yesterday showing pO2 59, pCO2 of 28, and pH of 7.44 and this was on 100% FiO2. CTA chest showed no evidence of pulmonary embolism, and fairly extensive bilateral confluent areas of groundglass opacities. There are some underlying changes that are chronic given bronchiectasis in the left upper lobe and to a lesser degree in the left lower lobe. There was some borderline sized mediastinal and right hilar lymph nodes that are possibly reactive. Patient was given a dose of IV Decadron in the emergency department, it has been switched over to IV Solu-Medrol 40 mg every 8 hours, she is on Xarelto, Pepcid, vitamins. This morning she was placed on BiPAP support with pressures of 12/5 and FiO2 of 60%. Her breathing is labored, today's chest x-ray shows multifocal patchy airspace disease. Patient was reevaluated today on 05/26/2020, patient remains in the ICU, she is feeling better, breathing a bit easier, although her chest x-ray continues to show bilateral interstitial infiltrates consistent with Covid 19 pneumonitis. Patient is now on airvo at 50 L and 80% FiO2, her O2 saturation is 92%. Patient is also on IV Solu-Medrol, she is on Xarelto, she did receive actemra yesterday, and she also received Lasix. Patient is out of the window for remdesivir, she also received 1 unit of convalescence plasma. Clinically the patient looks more comfortable today compared to yesterday, of course she is still requiring significant amount of oxygen, I feel we can potentially transfer the patient back to a regular medical floor with the same FiO2 settings. CBC is relatively normal. Renal profile is normal. LDH is 1543 and C-reactive protein is 64 The patient is seen today 05/27/2020 in follow-up on the regular medical floor. She is currently sitting up in a chair at the bedside. Awake and alert in no acute distress. She is still requiring airflow high flow oxygen at 60 L and 91% O2 saturation to maintain O2 saturations in the low 90s. She is breathing a bit easier today compared to yesterday. She denies any worsening shortness of breath, cough or congestion. She did receive Actemra. Received 1 unit of con valescence plasma. Remains on IV Solu-Medrol. Anticoagulated with Xarelto. Vitamin supplements. On 05/28/2020 patient seen in follow-up on medical surgical floor, she remains on high flow oxygen per Airvo, currently at 60 L and 80%, and pulse ox is 92%, however patient does desaturate very easily with any exertion, she's had no fever or chills, blood pressures been stable. She has mild to monitor shortness of breath with conversation, but no acute distress, today's chest x-ray shows pacer bilateral infiltrates stable in appearance. Patient remains on IV Solu- Medrol currently 40 mg every 8 hours, patient is on oral Xarelto 15 mg with supper, and patient is status post transfusion with 2 doses Actemra 400 mg times two. She also received 1 unit of convalescence plasma. His labs have been reviewed, d-dimer 7.04, LDH and CRP are improving. On 05/29/2020 patient seen in follow-up on medical floor, she remains on high flow oxygen per Airvo, with 60 L, but FiO2 is down to 70%, with pulse ox of 92- 94%, patient does desaturate to 70s quite a easily with any exertion, but she is breathing comfortably at rest. Denies any chest discomfort, she is awake and alert, oriented 3, she has had no fever or chills. No new chest x-ray today, is on IV Solu-Medrol 40 mg every 8 hours, patient is on Xarelto on dose 15 mg once daily, d-dimer is improving, down to 5.76 today, CRP is down to 11.8. No nausea vomiting or diarrhea, patient is tolerating oral diet. Blood cultures show no growth, patient remains on high flow oxygen per Airvo, currently at 60 L and FiO2 of 70%, her pulse ox is ranging between 89-95%, she denies any worsening dyspnea, only occasional cough, no chest discomfort, no fever or chills, patient has been up to the bedside commode, and sitting up in the chair, tolerating activity well. Blood cultures have been negative. Inflammatory markers are improving, d-dimer is improving. Patient continues on IV steroids, and she is on oral anticoagulation 15 mg once daily, and vitamins. Objective - Vital Signs Vital signs: Vital Signs Temp 97.4 F L 05/30/20 10:00 Pulse 60 05/30/20 10:00 Resp 22 05/30/20 10:00 BP 122/75 05/30/20 10:00 Pulse Ox 95 05/30/20 10:00 Intake & Output 05/29/20 05/30/20 05/30/20 18:59 06:59 18:59 Intake Total 480 200 Balance 480 200 Intake: Oral 480 200 Other: Voiding Method Bedside Commode # Voids 1 2 # Bowel Movements 1 2 - Exam GENERAL EXAM: Alert, active, very pleasant, 79-year-old white female, on 60 L of oxygen and FiO2 of 70% per high flow oxygen device Airvo comfortable in no apparent distress. HEAD: Normocephalic/atraumatic. EYES: Normal reaction of pupils, equal size. Conjunctiva pink, sclera white. NOSE: Clear with pink turbinates. THROAT: No erythema or exudates. NECK: No masses, no JVD, no thyroid enlargement, no adenopathy. CHEST: No chest wall deformity. Symmetrical expansion. LUNGS: Equal air entry with diffuse crackles CVS: Regular rate and rhythm, normal S1 and S2, no gallops, no murmurs, no rubs ABDOMEN: Soft, nontender. No hepatosplenomegaly, normal bowel sounds, no guarding or rigidity. EXTREMITIES: No clubbing, no edema, no cyanosis, 2+ pulses and upper and lower extremities. MUSCULOSKELETAL: Muscle strength and tone normal. SPINE: No scoliosis or deformity SKIN: No rashes CENTRAL NERVOUS SYSTEM: Alert and oriented -3. No focal deficits, tone is normal in all 4 extremities. PSYCHIATRIC: Alert and oriented -3. Appropriate affect. Intact judgment and insight. - Labs CBC & Chem 7: 05/26/20 03:46 05/26/20 03:46 Labs: Abnormal Lab Results - Last 24 Hours (Table) 05/29/20 05/29/20 05/30/20 Range/Units 16:53 20:20 07:03 POC Glucose (mg/dL) 132 H 111 H 181 H (75-99) mg/dL 05/30/20 Range/Units 11:50 POC Glucose (mg/dL) 282 H (75-99) mg/dL Microbiology - Last 24 Hours (Table) 05/24/20 18:00 Blood Culture - Preliminary Blood No Growth after 120 hours 05/24/20 17:53 Blood Culture - Preliminary Blood No Growth after 120 hours Assessment and Plan Plan: Assessment: #1. Acute severe hypoxemic respiratory failure related to COVID 19 pneumonitis, and patient had a rapid deterioration in her oxygenation status since admission. Patient had exposure to COVID 19 positive . Onset of symptoms with 7 days prior to presentation. Patient is status post 1 unit of convalescent plasma, 2 doses of Actemra 400 mg #2. Elevated inflammatory markers related to the above #3. Elevated d-dimer, but no evidence of pulmonary embolism on CTA chest, patient takes Xarelto on a regular basis #4. Diabetes mellitus type 2 #5. Chronic A. fib on Xarelto #6. Permanent pacemaker implantation #7. Hypothyroidism #8. Chronic kidney disease, unspecified #9. Osteoarthritis Plan: Repeat LDH, CRP, d-dimer tomorrow, follow up chest x-ray tomorrow, continue weaning FiO2 to keep O2 sat at 90% or best. Increase activity as tolerated. He IV steroids, oral anticoagulation. Continue vitamins, continue supportive treatment. I performed a history & physical examination of the patient and discussed their management with my nurse practitioner, Francheska Metz. I reviewed the nurse practitioner's note and agree with the documented findings and plan of care. Lung sounds are positive for diminished breath sounds diffuse crackles. The findings and the impression was discussed with the patient. I attest to the documentation by the nurse practitioner. Time with Patient: Less than 30
[2020-05-30 15:43] VITALS: BMI 27.3
[2020-05-30 16:48] LABS: Glucose,Whole Blood 205 mg/dL (75-99)
[2020-05-30] MEDS: RIVAROXABAN 15 MG TAB PO SCH (17:32)
[2020-05-30 20:48] LABS: Glucose,Whole Blood 82 mg/dL (75-99)
[2020-05-30] MEDS: ATORVASTATIN 10 MG TAB PO SCH (21:15)
[2020-05-30] MEDS: INSULIN DETEMIR (LEVEMIR) 100 UNIT/ML SYR SQ SCH (21:15)
--- NOTE | 2020-05-30 23:37 | P.PN ---
Progress Note - Text Progress Note Date: 05/30/20 Chief Complaint: Short of breath History of presenting complaint: This is a pleasant 79-year-old patient, follows a Dr. Romero. Chronic stable medical conditions include atrial fibrillation, diabetes, hypothyroid, history of kidney stones. Ostial arthritis. Has a pacemaker. Patient presents increasing shortness of breath with minimal exertion. Chest pressure. No cough no fever no chills. Feeling very tired and weak and rundown. No body aches. No diarrhea. No loss of smell or taste. Patient be put on high flow oxygen. Is able to eat some food. Admitted with bilateral COVID 19 pneumonia. Severe. Started vitamin C vitamin D Pepcid steroids, home dose of Seroquel continued. Patient became more short of breath. Was moved to the ICU. Moved back to the medical floor. Laying in bed Remains on high flow Airvo. Oral intake fair. Short of breath. She is concerned about her health. She was to make it to her next wed anniversary.-She tells me Review of systems: Was done for constitutional, cardiovascular, GI, pulmonary. relevant finding as above Active Medications Ascorbic Acid (Ascorbic Acid 500 Mg Tab) 1,000 mg PO DAILY [facility] Last Admin: 05/30/20 08:12 Dose: 1,000 mg Documented by: Atorvastatin Calcium (Atorvastatin 10 Mg Tab) 10 mg PO HS [facility] Last Admin: 05/30/20 21:15 Dose: 10 mg Documented by: Cholecalciferol (Cholecalciferol 25 Mcg (1000 Iu) Tablet) 25 mcg PO DAILY [facility] Last Admin: 05/30/20 08:12 Dose: 25 mcg Documented by: Famotidine (Famotidine 20 Mg Tab) 20 mg PO BID [facility] Last Admin: 05/30/20 21:15 Dose: 20 mg Documented by: Furosemide (Furosemide 20 Mg Tab) 20 mg PO DAILY [facility] Last Admin: 05/30/20 08:12 Dose: 20 mg Documented by: Insulin Aspart (Insulin Aspart (Novolog) 100 Unit/Ml Vial) 5 unit SQ AC-TID [facility] Last Admin: 05/30/20 17:27 Dose: 5 unit Documented by: Insulin Aspart (Insulin Aspart (Novolog) 100 Unit/Ml Vial) 0 unit SQ ACHS [facility]; Protocol Last Admin: 05/30/20 21:15 Dose: Not Given Documented by: Insulin Detemir (Insulin Detemir (Levemir) 100 Unit/Ml Syr) 9 unit SQ HS [facility] Last Admin: 05/30/20 21:15 Dose: Not Given Documented by: Levothyroxine Sodium (Levothyroxine 25 Mcg Tab) 25 mcg PO DAILY@0630 [facility] Last Admin: 05/30/20 05:36 Dose: 25 mcg Documented by: Lisinopril (Lisinopril 5 Mg Tab) 5 mg PO DAILY [facility] Last Admin: 05/30/20 08:11 Dose: 5 mg Documented by: Metformin HCl (Metformin 500 Mg Tab) 500 mg PO BID-W/MEALS [facility] Last Admin: 05/30/20 17:32 Dose: 500 mg Documented by: Methylprednisolone Sodium Succinate (Methylprednisolone Sod Succi 40 Mg/Ml 1 Ml Vial) 40 mg IV Q8HR [facility] Last Admin: 05/30/20 23:18 Dose: 40 mg Documented by: Metoprolol Succinate (Metoprolol Succinate (Er) 100 Mg Tab.Er.24h) 150 mg PO BID [facility] Last Admin: 05/30/20 21:15 Dose: 150 mg Documented by: Miscellaneous Information (Pneumonia Protocol Utilized 1 Each [facility]) 1 each PO ONCE PRN PRN Reason: Per Protocol Rivaroxaban (Rivaroxaban 15 Mg Tab) 15 mg PO W/SUPPER [facility] Last Admin: 05/30/20 17:32 Dose: 15 mg Documented by: Zinc Sulfate (Zinc Sulfate 220 Mg Cap) 220 mg PO DAILY [facility] Last Admin: 05/30/20 08:10 Dose: 220 mg Documented by: Past medical history to include: Atrial fibrillation, diabetes, hypothyroid, kidney stones, Physical examination: VITAL SIGNS: 97.7, 61, 22, 143/57, 90% on Airvo on 65% GENERAL: Laying in bed, on Airvo , short of breath PSYCH: Alert and oriented x3; mood and affect anxious NEUROLOGICAL: Cranial nerves grossly intact; no facial asymmetry, moving all 4 limbs Rest of exam as per pulmonary and nursing INVESTIGATIONS, reviewed in the clinical context: May 29: D-dimer 5.76 CRP 11.8 May 28: D-dimer 7.04 CRP 20.3 May 13: WBC 11.1 hemoglobin 12.9 potassium 4.8 creatinine 1.01 CRP 63.7 WBC 11.6 hemoglobin 14.5 platelets 350 lymphocytes 0.7 D-dimer 3.87 ABG-pH 7.44 pO2 59 CO2 20 Potassium 5.1 BUN 29 creatinine 1.16 lactic acid 5.4 CRP 165.5 pro-calcitonin 0.42 Coronavirus [PCR]-detected EKG tracing personally reviewed by me-ventricle brace rhythm Chest CT-extensive bilateral comfort 80s of groundglass. Some chronic changes also. Possibly bronchiectasis. Some borderline enlarged mediastinal hilar lymph nodes. Negative for PE Chest x-ray film personally reviewed by me-cardiomegaly with infiltrates Assessment and plan: -Acute bilateral COVID 19 pneumonia, severe. on vitamin C, vitamin D, Pepcid, steroids, patient is chronically on xarelto.-Slow to respond -Acute severe hypoxic respiratory failure from above. Continues on Airvo-65 % high flow. Slow to respond -Obesity BMI 39.5. Patient may follow outpatient weight loss measures -Diabetes mellitus type 2 chronically on insulin. Uncontrolled with hyperglycemia. Follow Accu-Cheks -Hyperlipidemia on Lipitor -Hypothyroid continue with Synthroid -Persistent atrial fibrillation patient on Toprol-XL. -Permanent pacemaker Care was discussed with the patient. Reassured Follow with pulmonary and ID
[2020-05-31] MEDS: LEVOTHYROXINE 25 MCG TAB PO SCH (06:04)
[2020-05-31 06:59] LABS: Glucose,Whole Blood 154 mg/dL (75-99)
--- NOTE | 2020-05-31 07:32 | XR ---
EXAMINATION TYPE: XR chest 1V portable DATE OF EXAM: 05/31/2020 COMPARISON: 05/28/2020 INDICATION: Covid 19 TECHNIQUE: Single frontal view of the chest is obtained. FINDINGS: The heart size is mildly prominent. The pulmonary vasculature is normal. Diffuse scattered nonspecific infiltrates are present greater in the right upper lobe and left base. Some air bronchograms may be present at the left base. Pacemaker overlies the chest. IMPRESSION: 1. Scattered infiltrates greater in the right upper and left lower lobes. Correlate for atypical pneu monia.
[2020-05-31] MEDS: METOPROLOL SUCCINATE (ER) 100 MG TAB.ER.24H PO SCH ×2 (08:00→20:43)
[2020-05-31] MEDS: FUROSEMIDE 20 MG TAB PO SCH (08:01)
[2020-05-31] MEDS: ASCORBIC ACID 500 MG TAB PO SCH (08:01)
[2020-05-31] MEDS: CHOLECALCIFEROL 25 MCG (1000 IU) TABLET PO SCH (08:01)
[2020-05-31] MEDS: lisinopriL 5 MG TAB PO SCH (08:01)
[2020-05-31] MEDS: FAMOTIDINE 20 MG TAB PO SCH ×2 (08:01→20:43)
[2020-05-31] MEDS: ZINC SULFATE 220 MG CAP PO SCH (08:01)
[2020-05-31] MEDS: metFORMIN 500 MG TAB PO SCH ×2 (08:01→17:42)
[2020-05-31] MEDS: INSULIN ASPART (NovoLOG) 100 UNIT/ML VIAL SQ SCH ×7 (08:02→20:43)
[2020-05-31] MEDS: methylPREDNISolone SOD SUCCI 40 MG/ML 1 ML VIAL IV SCH ×3 (08:02→23:14)
[2020-05-31 11:42] LABS: Glucose,Whole Blood 135 mg/dL (75-99)
[2020-05-31] MEDS ORDERED: LIDOCAINE 1% INJ 10MG/ML (20 ML MDV) ONE ×2 (13:40→16:53)
[2020-05-31] MEDS ORDERED: LIDOCAINE 1% INJ 10MG/ML (20 ML MDV) SQ ONE ×2 (14:03)
--- NOTE | 2020-05-31 15:22 | P.PN ---
Subjective Progress Note Date: 05/31/20 Principal diagnosis: Acute COVID 19 pneumonitis 79-year-old white female patient that came into the emergency department on 05/24/2020 with complaints of shortness of breath for 2 days prior to presentation. The patient's was positive for COVID 19. Patient denied any fever, denied any chest discomfort, no loss of taste or smell, no abdominal pain, nausea vomiting or diarrhea. Chronic medical conditions include history of A. fib on Xarelto, diabetes mellitus type 2, hypothyroidism, lifetime nonsmoker, permanent pacemaker implantation. Chest x-ray shows stable patchy interstitial infiltrates. On presentation patient was on room air however her oxygen demand has quickly increased up to 12 L of oxygen per minute, and subsequently up to 15 L less than 24 hours. She remains afebrile. Patient tested positive for COVID 19. White blood cell count is 11.6, hemoglobin is 14.5, d-dimer is 3.8, B1 is 29, creatinine is 1.16, ferritin is 1165, LDH is 1680, CRP is 165.5, pro calcitonin level is 0.42. Blood gas was completed yesterday showing pO2 59, pCO2 of 28, and pH of 7.44 and this was on 100% FiO2. CTA chest showed no evidence of pulmonary embolism, and fairly extensive bilateral confluent areas of groundglass opacities. There are some underlying changes that are chronic given bronchiectasis in the left upper lobe and to a lesser degree in the left lower lobe. There was some borderline sized mediastinal and right hilar lymph nodes that are possibly reactive. Patient was given a dose of IV Decadron in the emergency department, it has been switched over to IV Solu-Medrol 40 mg every 8 hours, she is on Xarelto, Pepcid, vitamins. This morning she was placed on BiPAP support with pressures of 12/5 and FiO2 of 60%. Her breathing is labored, today's chest x-ray shows multifocal patchy airspace disease. Patient was reevaluated today on 05/26/2020, patient remains in the ICU, she is feeling better, breathing a bit easier, although her chest x-ray continues to show bilateral interstitial infiltrates consistent with Covid 19 pneumonitis. Patient is now on airvo at 50 L and 80% FiO2, her O2 saturation is 92%. Patient is also on IV Solu-Medrol, she is on Xarelto, she did receive actemra yesterday, and she also received Lasix. Patient is out of the window for remdesivir, she also received 1 unit of convalescence plasma. Clinically the patient looks more comfortable today compared to yesterday, of course she is still requiring significant amount of oxygen, I feel we can potentially transfer the patient back to a regular medical floor with the same FiO2 settings. CBC is relatively normal. Renal profile is normal. LDH is 1543 and C-reactive protein is 64 The patient is seen today 05/27/2020 in follow-up on the regular medical floor. She is currently sitting up in a chair at the bedside. Awake and alert in no acute distress. She is still requiring airflow high flow oxygen at 60 L and 91% O2 saturation to maintain O2 saturations in the low 90s. She is breathing a bit easier today compared to yesterday. She denies any worsening shortness of breath, cough or congestion. She did receive Actemra. Received 1 unit of con valescence plasma. Remains on IV Solu-Medrol. Anticoagulated with Xarelto. Vitamin supplements. On 05/28/2020 patient seen in follow-up on medical surgical floor, she remains on high flow oxygen per Airvo, currently at 60 L and 80%, and pulse ox is 92%, however patient does desaturate very easily with any exertion, she's had no fever or chills, blood pressures been stable. She has mild to monitor shortness of breath with conversation, but no acute distress, today's chest x-ray shows pacer bilateral infiltrates stable in appearance. Patient remains on IV Solu- Medrol currently 40 mg every 8 hours, patient is on oral Xarelto 15 mg with supper, and patient is status post transfusion with 2 doses Actemra 400 mg times two. She also received 1 unit of convalescence plasma. His labs have been reviewed, d-dimer 7.04, LDH and CRP are improving. On 05/29/2020 patient seen in follow-up on medical floor, she remains on high flow oxygen per Airvo, with 60 L, but FiO2 is down to 70%, with pulse ox of 92- 94%, patient does desaturate to 70s quite a easily with any exertion, but she is breathing comfortably at rest. Denies any chest discomfort, she is awake and alert, oriented 3, she has had no fever or chills. No new chest x-ray today, is on IV Solu-Medrol 40 mg every 8 hours, patient is on Xarelto on dose 15 mg once daily, d-dimer is improving, down to 5.76 today, CRP is down to 11.8. No nausea vomiting or diarrhea, patient is tolerating oral diet. Blood cultures show no growth, patient remains on high flow oxygen per Airvo, currently at 60 L and FiO2 of 70%, her pulse ox is ranging between 89-95%, she denies any worsening dyspnea, only occasional cough, no chest discomfort, no fever or chills, patient has been up to the bedside commode, and sitting up in the chair, tolerating activity well. Blood cultures have been negative. Inflammatory markers are improving, d-dimer is improving. Patient continues on IV steroids, and she is on oral anticoagulation 15 mg once daily, and vitamins. On 05/31/2020 patient seen in follow-up. She remains on high flow oxygen per Airvo, currently at 60 features and FiO2 of 70%, with a pulse ox of 90-91%, no worsening dyspnea, patient has been getting up to the chair, she is eating, does not appear to be in any acute distress, lung sounds reveal diffuse crackles bilaterally, she's been afebrile, she does desaturate quite easily with any exertion or speaking, no chest discomfort, no cough. No nausea vomiting or diarrhea, her appetite is fair. Her labs showed improving inflammatory markers and downtrending d-dimer. She remains on Xarelto, IV steroids, and vitamins. Objective - Vital Signs Vital signs: Vital Signs Temp 96.3 F L 05/31/20 13:56 Pulse 61 05/31/20 13:56 Resp 24 05/31/20 13:56 BP 106/65 05/31/20 13:56 Pulse Ox 97 05/31/20 13:56 Intake & Output 05/30/20 05/31/20 05/31/20 18:59 06:59 18:59 Weight 67.9 kg Other: Voiding Method Bedside Commode # Voids 5 1 2 # Bowel Movements 2 - Exam GENERAL EXAM: Alert, active, very pleasant, 79-year-old white female, on 60 L of oxygen and FiO2 of 75% per high flow oxygen device Airvo comfortable in no apparent distress. HEAD: Normocephalic/atraumatic. EYES: Normal reaction of pupils, equal size. Conjunctiva pink, sclera white. NOSE: Clear with pink turbinates. THROAT: No erythema or exudates. NECK: No masses, no JVD, no thyroid enlargement, no adenopathy. CHEST: No chest wall deformity. Symmetrical expansion. LUNGS: Equal air entry with diffuse crackles CVS: Regular rate and rhythm, normal S1 and S2, no gallops, no murmurs, no rubs ABDOMEN: Soft, nontender. No hepatosplenomegaly, normal bowel sounds, no guarding or rigidity. EXTREMITIES: No clubbing, no edema, no cyanosis, 2+ pulses and upper and lower extremities. MUSCULOSKELETAL: Muscle strength and tone normal. SPINE: No scoliosis or deformity SKIN: No rashes CENTRAL NERVOUS SYSTEM: Alert and oriented -3. No focal deficits, tone is normal in all 4 extremities. PSYCHIATRIC: Alert and oriented -3. Appropriate affect. Intact judgment and insight. - Labs CBC & Chem 7: 05/26/20 03:46 05/26/20 03:46 Labs: Abnormal Lab Results - Last 24 Hours (Table) 05/30/20 05/31/20 05/31/20 Range/Units 16:46 06:54 11:37 POC Glucose (mg/dL) 205 H 154 H 135 H (75-99) mg/dL Microbiology - Last 24 Hours (Table) 05/24/20 17:53 Blood Culture - Final Blood No Growth after 144 hours 05/24/20 18:00 Blood Culture - Final Blood No Growth after 144 hours Assessment and Plan Plan: Assessment: #1. Acute severe hypoxemic respiratory failure related to COVID 19 pneumonitis, and patient had a rapid deterioration in her oxygenation status since admission. Patient had exposure to COVID 19 positive . Onset of symptoms with 7 days prior to presentation. Patient is status post 1 unit of convalescent plasma, 2 doses of Actemra 400 mg #2. Elevated inflammatory markers related to the above #3. Elevated d-dimer, but no evidence of pulmonary embolism on CTA chest, pat ient takes Xarelto on a regular basis #4. Diabetes mellitus type 2 #5. Chronic A. fib on Xarelto #6. Permanent pacemaker implantation #7. Hypothyroidism #8. Chronic kidney disease, unspecified #9. Osteoarthritis Plan: Continue current medical treatment, still requiring high flow oxygen per Airvo, but no complaints of worsening dyspnea, no chest discomfort, inflammatory markers are improving, continue oral anticoagulation, encouraged patient to increase activity, sitting up in the chair. Provide incentive spirometry. We'll continue to closely follow. Patient is a difficult IV access and obtain consent for placement of a central line triple lumen catheter today I performed a history & physical examination of the patient and discussed their management with my nurse practitioner, Francheska Metz. I reviewed the nurse practitioner's note and agree with the documented findings and plan of care. Lung sounds are positive for diminished breath sounds diffuse crackles. The fi ndings and the impression was discussed with the patient. I attest to the documentation by the nurse practitioner. Time with Patient: Less than 30
[2020-05-31] MEDS ORDERED: SODIUM CHLORIDE 0.9% 500 ML 500 ML IV ONE (17:19)
[2020-05-31] MEDS: SODIUM CHLORIDE 0.9% 1,000 ML IV SCH (17:27)
[2020-05-31 17:36] LABS: Glucose,Whole Blood 132 mg/dL (75-99)
[2020-05-31] MEDS: RIVAROXABAN 15 MG TAB PO SCH (17:36)
--- NOTE | 2020-05-31 17:53 | PCN ---
PROCEDURE NOTE RIGHT FEMORAL TRIPLE-LUMEN CATHETER PLACEMENT: PREOPERATIVE DIAGNOSIS: Administration of fluids and pressors. POSTOPERATIVE DIAGNOSIS: Administration of fluids and pressors. OPERATORS: 1. Dr. Pisano. 2. Dr. Metz. PROCEDURE DESCRIPTION: A time-out was completed verifying correct patient, procedure, site, positioning, and implant(s) or special equipment if applicable. The patient was placed in a dependent position appropriate for triple lumen catheter placement based on the vein to be cannulated. The patient's right groin was prepped and draped in sterile fashion. 1% Lidocaine was used to anesthetize the surrounding skin area. A triple-lumen 9F Cordis catheter was introduced into the common femoral vein using Seldinger technique. The catheter was threaded smoothly over the guide wire and appropriate blood return was obtained. Each lumen of the catheter was evacuated of air and flushed with sterile saline. The catheter was then sutured in place to the skin and a sterile dressing applied. Perfusion to the extremity distal to the point of catheter insertion was checked and found to be adequate. There was good blood return from all 3 ports. A sterile dressing was applied by the nurse. There was no immediate complication. The patient tolerated the procedure well. No x-rays necessary, as this is a central line placed in the right femoral space. MMODL / IJN: [id number] /
[2020-05-31 19:00] LABS: Basophils # (A) 0.1 k/uL (0-0.2); Basophils % (A) 0 %; Eosinophils % (A) 0 %; HCT 45.1 % (34.0-46.0); HGB 15.2 gm/dL (11.4-16.0); Lymphocytes # (A) 0.7 k/uL (1.0-4.8); Lymphocytes % (A) 3 %; MCH 27.5 pg (25.0-35.0); MCHC 33.6 g/dL (31.0-37.0); MCV 81.8 fL (80.0-100.0); Mean Platelet Volume 9.3; Monocytes # (A) 1.4 k/uL (0-1.0); Monocytes % (A) 5 %; Neutrophils # (A) 26.4 k/uL (1.3-7.7); Neutrophils % (A) 92 %; Platelet Count 346 k/uL (150-450); RBC 5.51 m/uL (3.80-5.40); RDW 14.6 % (11.5-15.5); WBC 28.8 k/uL (3.8-10.6)
[2020-05-31 19:14] LABS: ALT 27 U/L (4-34); AST 28 U/L (14-36); African American GFR (CKD) 40 (>60 ml/min/1.73 sqM); Albumin 3.1 g/dL (3.5-5.0); Albumin/Globulin Ratio 0.9; Alkaline Phosphatase 81 U/L (38-126); Anion Gap 10 mmol/L; Blood Urea Nitrogen 72 mg/dL (7-17); C Reactive Protein <5.0 mg/L (<10.0); Calcium 9.2 mg/dL (8.4-10.2); Carbon Dioxide 22 mmol/L (22-30); Chloride 108 mmol/L (98-107); Globulin 3.3 g/dL; Glucose 136 mg/dL (74-99); Non-African American GFR(CKD) 35 (>60 ml/min/1.73 sqM); Sodium 140 mmol/L (137-145); Total Bilirubin 0.9 mg/dL (0.2-1.3); Total Protein 6.4 g/dL (6.3-8.2)
[2020-05-31 20:29] LABS: Glucose,Whole Blood 183 mg/dL (75-99)
[2020-05-31] MEDS: ATORVASTATIN 10 MG TAB PO SCH (20:43)
[2020-05-31] MEDS: INSULIN DETEMIR (LEVEMIR) 100 UNIT/ML SYR SQ SCH (20:43)
--- NOTE | 2020-05-31 23:29 | P.PN ---
Progress Note - Text Progress Note Date: 05/31/20 Chief Complaint: Short of breath History of presenting complaint: This is a pleasant 79-year-old patient, follows a Dr. Romero. Chronic stable medical conditions include atrial fibrillation, diabetes, hypothyroid, history of kidney stones. Ostial arthritis. Has a pacemaker. Patient presents increasing shortness of breath with minimal exertion. Chest pressure. No cough no fever no chills. Feeling very tired and weak and rundown. No body aches. No diarrhea. No loss of smell or taste. Patient be put on high flow oxygen. Is able to eat some food. Admitted with bilateral COVID 19 pneumonia. Severe. Started vitamin C vitamin D Pepcid steroids, home dose of Seroquel continued. Patient became more short of breath. Was moved to the ICU. Moved back to the medical floor. Today: Laying in bed Remains on high flow Airvo. Oral intake fair. Short of breath. Review of systems: Was done for constitutional, cardiovascular, GI, pulmonary. relevant finding as above Active Medications Ascorbic Acid (Ascorbic Acid 500 Mg Tab) 1,000 mg PO DAILY [facility] Last Admin: 05/31/20 08:01 Dose: 1,000 mg Documented by: Atorvastatin Calcium (Atorvastatin 10 Mg Tab) 10 mg PO HS [facility] Last Admin: 05/31/20 20:43 Dose: 10 mg Documented by: Cholecalciferol (Cholecalciferol 25 Mcg (1000 Iu) Tablet) 25 mcg PO DAILY [facility] Last Admin: 05/31/20 08:01 Dose: 25 mcg Documented by: Famotidine (Famotidine 20 Mg Tab) 20 mg PO BID [facility] Last Admin: 05/31/20 20:43 Dose: 20 mg Documented by: Furosemide (Furosemide 20 Mg Tab) 20 mg PO DAILY [facility] Last Admin: 05/31/20 08:01 Dose: 20 mg Documented by: Sodium Chloride (Saline 0.9%) 1,000 mls @ 75 mls/hr IV .[id number] [facility] Last Admin: 05/31/20 17:27 Dose: 75 mls/hr Documented by: Insulin Aspart (Insulin Aspart (Novolog) 100 Unit/Ml Vial) 5 unit SQ AC-TID [facility] Last Admin: 05/31/20 17:39 Dose: 5 unit Documented by: Insulin Aspart (Insulin Aspart (Novolog) 100 Unit/Ml Vial) 0 unit SQ ACHS [facility]; Protocol Last Admin: 05/31/20 20:43 Dose: 3 unit Documented by: Insulin Detemir (Insulin Detemir (Levemir) 100 Unit/Ml Syr) 9 unit SQ HS [facility] Last Admin: 05/31/20 20:43 Dose: 9 unit Documented by: Levothyroxine Sodium (Levothyroxine 25 Mcg Tab) 25 mcg PO DAILY@0630 [facility] Last Admin: 05/31/20 06:04 Dose: 25 mcg Documented by: Lisinopril (Lisinopril 5 Mg Tab) 5 mg PO DAILY [facility] Last Admin: 05/31/20 08:01 Dose: 5 mg Documented by: Metformin HCl (Metformin 500 Mg Tab) 500 mg PO BID-W/MEALS [facility] Last Admin: 05/31/20 17:42 Dose: 500 mg Documented by: Methylprednisolone Sodium Succinate (Methylprednisolone Sod Succi 40 Mg/Ml 1 Ml Vial) 40 mg IV Q8HR [facility] Last Admin: 05/31/20 23:14 Dose: 40 mg Documented by: Metoprolol Succinate (Metoprolol Succinate (Er) 100 Mg Tab.Er.24h) 150 mg PO BID [facility] Last Admin: 05/31/20 20:43 Dose: 150 mg Documented by: Miscellaneous Information (Pneumonia Protocol Utilized 1 Each [facility] [place] 1 each PO ONCE PRN PRN Reason: Per Protocol Rivaroxaban (Rivaroxaban 15 Mg Tab) 15 mg PO W/SUPPER [facility] Last Admin: 05/31/20 17:36 Dose: 15 mg Documented by: Zinc Sulfate (Zinc Sulfate 220 Mg Cap) 220 mg PO DAILY [facility] Last Admin: 05/31/20 08:01 Dose: 220 mg Documented by: Past medical history to include: Atrial fibrillation, diabetes, hypothyroid, kidney stones, Physical examination: VITAL SIGNS: 96.3, 61, 24, 106/65, 97% on 75% FiO2 Airvo GENERAL: Laying in bed, on Airvo , short of breath PSYCH: Alert and oriented x3; mood and affect anxious NEUROLOGICAL: Cranial nerves grossly intact; no facial asymmetry, moving all 4 limbs Rest of exam as per pulmonary and nursing INVESTIGATIONS, reviewed in the clinical context: May 31: Hemoglobin 15.2 d-dimer 3.31 creatinine 1.4 to CRP less than 5 May 29: D-dimer 5.76 CRP 11.8 May 28: D-dimer 7.04 CRP 20.3 May 26: WBC 11.1 hemoglobin 12.9 potassium 4.8 creatinine 1.01 CRP 63.7 WBC 11.6 hemoglobin 14.5 platelets 350 lymphocytes 0.7 D-dimer 3.87 ABG-pH 7.44 pO2 59 CO2 20 Potassium 5.1 BUN 29 creatinine 1.16 lactic acid 5.4 CRP 165.5 pro-calcitonin 0.42 Coronavirus [PCR]-detected EKG tracing personally reviewed by me-ventricle brace rhythm Chest CT-extensive bilateral comfort 80s of groundglass. Some chronic changes also. Possibly bronchiectasis. Some borderline enlarged mediastinal hilar lymph nodes. Negative for PE Chest x-ray film personally reviewed by me-cardiomegaly with infiltrates Assessment and plan: -Acute bilateral COVID 19 pneumonia, severe. on vitamin C, vitamin D, Pepcid, steroids, patient is chronically on xarelto.-Slow to respond -Acute severe hypoxic respiratory failure from above. Continues on Airvo-75 % high flow. Slow to respond -Obesity BMI 39.5. Patient may follow outpatient weight loss measures -Diabetes mellitus type 2 chronically on insulin. Uncontrolled with hyperglycemia. Follow Accu-Cheks -Hyperlipidemia on Lipitor -Hypothyroid continue with Synthroid -Persistent atrial fibrillation patient on Toprol-XL. -Permanent pacemaker Care was discussed with the patient. Also called patient's at home on the phone and updated about the patient's clinical situation. Answered his questions. He does understand that currently prognosis guarded.
[2020-06-01] MEDS ORDERED: HALOPERIDOL LACTATE 5 MG/ML 1 ML VIAL IM PRN (00:56)
[2020-06-01] MEDS: SODIUM CHLORIDE 0.9% 1,000 ML IV SCH ×2 (05:36→21:10)
[2020-06-01] MEDS: LEVOTHYROXINE 25 MCG TAB PO SCH (05:37)
[2020-06-01 06:42] LABS: Glucose,Whole Blood 137 mg/dL (75-99)
[2020-06-01] MEDS: lisinopriL 5 MG TAB PO SCH (08:15)
[2020-06-01] MEDS: INSULIN ASPART (NovoLOG) 100 UNIT/ML VIAL SQ SCH ×7 (08:15→20:50)
[2020-06-01] MEDS: ASCORBIC ACID 500 MG TAB PO SCH (08:15)
[2020-06-01] MEDS: FUROSEMIDE 20 MG TAB PO SCH (08:16)
[2020-06-01] MEDS: methylPREDNISolone SOD SUCCI 40 MG/ML 1 ML VIAL IV SCH ×2 (08:16→17:37)
[2020-06-01] MEDS: METOPROLOL SUCCINATE (ER) 100 MG TAB.ER.24H PO SCH ×2 (08:16→21:20)
[2020-06-01] MEDS: FAMOTIDINE 20 MG TAB PO SCH (08:16)
[2020-06-01] MEDS: ZINC SULFATE 220 MG CAP PO SCH (08:16)
[2020-06-01] MEDS: metFORMIN 500 MG TAB PO SCH ×2 (08:17→17:40)
[2020-06-01] MEDS: CHOLECALCIFEROL 25 MCG (1000 IU) TABLET PO SCH (08:17)
[2020-06-01 11:43] LABS: Glucose,Whole Blood 205 mg/dL (75-99)
[2020-06-01 16:49] LABS: Glucose,Whole Blood 192 mg/dL (75-99)
--- NOTE | 2020-06-01 16:53 | P.PN ---
Subjective Progress Note Date: 06/01/20 Principal diagnosis: Acute COVID 19 pneumonitis 79-year-old white female patient that came into the emergency department on 05/24/2020 with complaints of shortness of breath for 2 days prior to presentation. The patient's was positive for COVID 19. Patient denied any fever, denied any chest discomfort, no loss of taste or smell, no abdominal pain, nausea vomiting or diarrhea. Chronic medical conditions include history of A. fib on Xarelto, diabetes mellitus type 2, hypothyroidism, lifetime nonsmoker, permanent pacemaker implantation. Chest x-ray shows stable patchy interstitial infiltrates. On presentation patient was on room air however her oxygen demand has quickly increased up to 12 L of oxygen per minute, and subsequently up to 15 L less than 24 hours. She remains afebrile. Patient tested positive for COVID 19. White blood cell count is 11.6, hemoglobin is 14.5, d-dimer is 3.8, B1 is 29, creatinine is 1.16, ferritin is 1165, LDH is 1680, CRP is 165.5, pro calcitonin level is 0.42. Blood gas was completed yesterday showing pO2 59, pCO2 of 28, and pH of 7.44 and this was on 100% FiO2. CTA chest showed no evidence of pulmonary embolism, and fairly extensive bilateral confluent areas of groundglass opacities. There are some underlying changes that are chronic given bronchiectasis in the left upper lobe and to a lesser degree in the left lower lobe. There was some borderline sized mediastinal and right hilar lymph nodes that are possibly reactive. Patient was given a dose of IV Decadron in the emergency department, it has been switched over to IV Solu-Medrol 40 mg every 8 hours, she is on Xarelto, Pepcid, vitamins. This morning she was placed on BiPAP support with pressures of 12/5 and FiO2 of 60%. Her breathing is labored, today's chest x-ray shows multifocal patchy airspace disease. Patient was reevaluated today on 05/26/2020, patient remains in the ICU, she is feeling better, breathing a bit easier, although her chest x-ray continues to show bilateral interstitial infiltrates consistent with Covid 19 pneumonitis. Patient is now on airvo at 50 L and 80% FiO2, her O2 saturation is 92%. Patient is also on IV Solu-Medrol, she is on Xarelto, she did receive actemra yesterday, and she also received Lasix. Patient is out of the window for remdesivir, she also received 1 unit of convalescence plasma. Clinically the patient looks more comfortable today compared to yesterday, of course she is still requiring significant amount of oxygen, I feel we can potentially transfer the patient back to a regular medical floor with the same FiO2 settings. CBC is relatively normal. Renal profile is normal. LDH is 1543 and C-reactive protein is 64 The patient is seen today 05/27/2020 in follow-up on the regular medical floor. She is currently sitting up in a chair at the bedside. Awake and alert in no acute distress. She is still requiring airflow high flow oxygen at 60 L and 91% O2 saturation to maintain O2 saturations in the low 90s. She is breathing a bit easier today compared to yesterday. She denies any worsening shortness of breath, cough or congestion. She did receive Actemra. Received 1 unit of con valescence plasma. Remains on IV Solu-Medrol. Anticoagulated with Xarelto. Vitamin supplements. On 05/28/2020 patient seen in follow-up on medical surgical floor, she remains on high flow oxygen per Airvo, currently at 60 L and 80%, and pulse ox is 92%, however patient does desaturate very easily with any exertion, she's had no fever or chills, blood pressures been stable. She has mild to monitor shortness of breath with conversation, but no acute distress, today's chest x-ray shows pacer bilateral infiltrates stable in appearance. Patient remains on IV Solu- Medrol currently 40 mg every 8 hours, patient is on oral Xarelto 15 mg with supper, and patient is status post transfusion with 2 doses Actemra 400 mg times two. She also received 1 unit of convalescence plasma. His labs have been reviewed, d-dimer 7.04, LDH and CRP are improving. On 05/29/2020 patient seen in follow-up on medical floor, she remains on high flow oxygen per Airvo, with 60 L, but FiO2 is down to 70%, with pulse ox of 92- 94%, patient does desaturate to 70s quite a easily with any exertion, but she is breathing comfortably at rest. Denies any chest discomfort, she is awake and alert, oriented 3, she has had no fever or chills. No new chest x-ray today, is on IV Solu-Medrol 40 mg every 8 hours, patient is on Xarelto on dose 15 mg once daily, d-dimer is improving, down to 5.76 today, CRP is down to 11.8. No nausea vomiting or diarrhea, patient is tolerating oral diet. Blood cultures show no growth, patient remains on high flow oxygen per Airvo, currently at 60 L and FiO2 of 70%, her pulse ox is ranging between 89-95%, she denies any worsening dyspnea, only occasional cough, no chest discomfort, no fever or chills, patient has been up to the bedside commode, and sitting up in the chair, tolerating activity well. Blood cultures have been negative. Inflammatory markers are improving, d-dimer is improving. Patient continues on IV steroids, and she is on oral anticoagulation 15 mg once daily, and vitamins. On 05/31/2020 patient seen in follow-up. She remains on high flow oxygen per Airvo, currently at 60 features and FiO2 of 70%, with a pulse ox of 90-91%, no worsening dyspnea, patient has been getting up to the chair, she is eating, does not appear to be in any acute distress, lung sounds reveal diffuse crackles bilaterally, she's been afebrile, she does desaturate quite easily with any exertion or speaking, no chest discomfort, no cough. No nausea vomiting or diarrhea, her appetite is fair. Her labs showed improving inflammatory markers and downtrending d-dimer. She remains on Xarelto, IV steroids, and vitamins. On 06/01/2020 patient seen in follow-up on medical floor, last night we placed a central line in the right femoral vein, patient was quite intravascularly d epleted and dehydrated, and we ordered IV hydration with 0.9 normal saline at 75 ML per hour on which she remains today. She remains on high flow oxygen at 60 L and 65%, her pulse ox is 95%, she is afebrile, hemodynamically she is stable. She looks and sounds better on today's exam, less confused, she denies any acute distress, no chest pain, no shortness of breath, appears to be breathing comfo rtably, although does easily desaturate with exertion. SHe is sitting up in bed, eating lunch, last night apparently she had gotten up, she was confused, she had removed her Airvo, and was found by the nurses with low O2 saturation is confused and chewing on the Airvo nosepiece. She is being monitored closely. She is receiving when necessary doses of Haldol. She remains on multivitamins, IV steroids 40 mg every 8 hours, she is on several told, she status post 2 doses of postnasal exam, she was too late for Remdesivir, did receive 1 dose of convalescence plasma. Her last chest x-ray was yesterday showing scattered infiltrates greater in the right upper and left lower lobes. Objective - Vital Signs Vital signs: Vital Signs Temp 96.5 F L 06/01/20 14:00 Pulse 79 06/01/20 14:00 Resp 24 06/01/20 14:00 BP 103/68 06/01/20 14:00 Pulse Ox 95 06/01/20 16:21 Intake & Output 05/31/20 06/01/20 06/01/20 18:59 06:59 18:59 Other: Voiding Method Bedside Commode Incontinent # Voids 2 2 - Exam GENERAL EXAM: Alert, active, very pleasant, 79-year-old white female, on 60 L of oxygen and FiO2 of 65% per high flow oxygen device Airvo comfortable in no apparent distress. HEAD: Normocephalic/atraumatic. EYES: Normal reaction of pupils, equal size. Conjunctiva pink, sclera white. NOSE: Clear with pink turbinates. THROAT: No erythema or exudates. NECK: No masses, no JVD, no thyroid enlargement, no adenopathy. CHEST: No chest wall deformity. Symmetrical expansion. LUNGS: Equal air entry with diffuse crackles CVS: Regular rate and rhythm, normal S1 and S2, no gallops, no murmurs, no rubs ABDOMEN: Soft, nontender. No hepatosplenomegaly, normal bowel sounds, no guarding or rigidity. EXTREMITIES: No clubbing, no edema, no cyanosis, 2+ pulses and upper and lower extremities. MUSCULOSKELETAL: Muscle strength and tone normal. SPINE: No scoliosis or deformity SKIN: No rashes CENTRAL NERVOUS SYSTEM: Alert and oriented -3. No focal deficits, tone is normal in all 4 extremities. PSYCHIATRIC: Alert and oriented -3. Appropriate affect. Intact judgment and insight. - Labs CBC & Chem 7: 05/31/20 18:25 05/31/20 18:25 Labs: Abnormal Lab Results - Last 24 Hours (Table) 05/31/20 05/31/20 05/31/20 Range/Units 17:34 18:25 18:25 WBC 28.8 H (3.8-10.6) k/uL RBC 5.51 H (3.80-5.40) m/uL Neutrophils # 26.4 H (1.3-7.7) k/uL Lymphocytes # 0.7 L (1.0-4.8) k/uL Monocytes # 1.4 H (0-1.0) k/uL D-Dimer 3.31 H (<0.60) mg/L FEU Chloride (98-107) mmol/L BUN (7-17) mg/dL Creatinine (0.52-1.04) mg/dL Glucose (74-99) mg/dL POC Glucose (mg/dL) 132 H (75-99) mg/dL Albumin (3.5-5.0) g/dL 05/31/20 05/31/20 06/01/20 Range/Units 18:25 20:28 06:41 WBC (3.8-10.6) k/uL RBC (3.80-5.40) m/uL Neutrophils # (1.3-7.7) k/uL Lymphocytes # (1.0-4.8) k/uL Monocytes # (0-1.0) k/uL D-Dimer (<0.60) mg/L FEU Chloride 108 H (98-107) mmol/L BUN 72 H (7-17) mg/dL Creatinine 1.42 H (0.52-1.04) mg/dL Glucose 136 H (74-99) mg/dL POC Glucose (mg/dL) 183 H 137 H (75-99) mg/dL Albumin 3.1 L (3.5-5.0) g/dL 06/01/20 Range/Units 11:41 WBC (3.8-10.6) k/uL RBC (3.80-5.40) m/uL Neutrophils # (1.3-7.7) k/uL Lymphocytes # (1.0-4.8) k/uL Monocytes # (0-1.0) k/uL D-Dimer (<0.60) mg/L FEU Chloride (98-107) mmol/L BUN (7-17) mg/dL Creatinine (0.52-1.04) mg/dL Glucose (74-99) mg/dL POC Glucose (mg/dL) 205 H (75-99) mg/dL Albumin (3.5-5.0) g/dL Assessment and Plan Plan: Assessment: #1. Acute severe hypoxemic respiratory failure related to COVID 19 pneumonitis, and patient had a rapid deterioration in her oxygenation status since admission. Patient had exposure to COVID 19 positive . Onset of symptoms with 7 days prior to presentation. Patient is status post 1 unit of convalescent plasma, 2 doses of Actemra 400 mg #2. Elevated inflammatory markers related to the above #3. Elevated d-dimer, but no evidence of pulmonary embolism on CTA chest, patient takes Xarelto on a regular basis #4. Diabetes mellitus type 2 #5. Chronic A. fib on Xarelto #6. Permanent pacemaker implantation #7. Hypothyroidism #8. Chronic kidney disease, unspecified #9. Osteoarthritis #10. Acute toxic metabolic encephalopathy, delirium, intermittent, related to severe hypoxic respiratory failure, dehydration. Patient is receiving IV hydration, FiO2 is being weaned down, but patient remains on high flow oxygen per Airvo, she is receiving when necessary doses of Haldol #11. Acute kidney injury related to dehydration, ATN Plan: We'll discontinue oral Lasix, continue IV hydration with point seen at 75 ML per hour, encourage oral intake, continue current dose of steroids, continue multivitamins, continue oral anticoagulation, we will repeat inflammatory markers tomorrow, obtain repeat BMP and CBC, and repeat chest x-ray. Continue weaning FiO2 to keep O2 sat at or above 90%. Maintain safety precautions, we'll continue to follow I performed a history & physical examination of the patient and discussed their management with my nurse practitioner, Francheska Metz. I reviewed the nurse practitioner's note and agree with the documented findings and plan of care. Lung sounds are positive for diminished breath sounds diffuse crackles. The findings and the impression was discussed with the patient. I attest to the documentation by the nurse practitioner. Time with Patient: Less than 30
[2020-06-01] MEDS: RIVAROXABAN 15 MG TAB PO SCH (17:40)
[2020-06-01 20:32] LABS: Glucose,Whole Blood 124 mg/dL (75-99)
[2020-06-01] MEDS: INSULIN DETEMIR (LEVEMIR) 100 UNIT/ML SYR SQ SCH (21:09)
[2020-06-01] MEDS: ATORVASTATIN 10 MG TAB PO SCH (21:10)
--- NOTE | 2020-06-01 22:03 | P.PN ---
Progress Note - Text Progress Note Date: 06/01/20 Chief Complaint: Short of breath History of presenting complaint: This is a pleasant 79-year-old patient, follows a Dr. Romero. Chronic stable medical conditions include atrial fibrillation, diabetes, hypothyroid, history of kidney stones. Ostial arthritis. Has a pacemaker. Patient presents increasing shortness of breath with minimal exertion. Chest pressure. No cough no fever no chills. Feeling very tired and weak and rundown. No body aches. No diarrhea. No loss of smell or taste. Patient be put on high flow oxygen. Is able to eat some food. Admitted with bilateral COVID 19 pneumonia. Severe. Started vitamin C vitamin D Pepcid steroids, home dose of Seroquel continued. Patient became more short of breath. Was moved to the ICU. Moved back to the medical floor. Today: Laying in bed Remains on high flow Airvo. Oral intake fair. Short of breath. Tired Review of systems: Was done for constitutional, cardiovascular, GI, pulmonary. relevant finding as above Active Medications Ascorbic Acid (Ascorbic Acid 500 Mg Tab) 1,000 mg PO DAILY [facility] Last Admin: 06/01/20 08:15 Dose: 1,000 mg Documented by: Atorvastatin Calcium (Atorvastatin 10 Mg Tab) 10 mg PO HS [facility] Last Admin: 06/01/20 21:10 Dose: 10 mg Documented by: Cholecalciferol (Cholecalciferol 25 Mcg (1000 Iu) Tablet) 25 mcg PO DAILY [facility] Last Admin: 06/01/20 08:17 Dose: 25 mcg Documented by: Famotidine (Famotidine 20 Mg Tab) 20 mg PO DAILY [facility] Haloperidol Lactate (Haloperidol Lactate 5 Mg/Ml 1 Ml Vial) 2.5 mg IM ONCE PRN PRN Reason: Agitation or Acute Psychosis Sodium Chloride (Saline 0.9%) 1,000 mls @ 75 mls/hr IV .[id number] [facility] Last Admin: 06/01/20 21:10 Dose: 75 mls/hr Documented by: Insulin Aspart (Insulin Aspart (Novolog) 100 Unit/Ml Vial) 5 unit SQ AC-TID [facility] Last Admin: 06/01/20 17:37 Dose: 5 unit Documented by: Insulin Aspart (Insulin Aspart (Novolog) 100 Unit/Ml Vial) 0 unit SQ ACHS [facility]; Protocol Last Admin: 06/01/20 20:50 Dose: Not Given Documented by: Insulin Detemir (Insulin Detemir (Levemir) 100 Unit/Ml Syr) 9 unit SQ HS [facility] Last Admin: 06/01/20 21:09 Dose: 9 unit Documented by: Levothyroxine Sodium (Levothyroxine 25 Mcg Tab) 25 mcg PO DAILY@0630 [facility] Last Admin: 06/01/20 05:37 Dose: Not Given Documented by: Lisinopril (Lisinopril 5 Mg Tab) 5 mg PO DAILY [facility] Last Admin: 06/01/20 08:15 Dose: 5 mg Documented by: Metformin HCl (Metformin 500 Mg Tab) 500 mg PO BID-W/MEALS [facility] Last Admin: 06/01/20 17:40 Dose: 500 mg Documented by: Methylprednisolone Sodium Succinate (Methylprednisolone Sod Succi 40 Mg/Ml 1 Ml Vial) 40 mg IV Q8HR [facility] Last Admin: 06/01/20 17:37 Dose: 40 mg Documented by: Metoprolol Succinate (Metoprolol Succinate (Er) 100 Mg Tab.Er.24h) 150 mg PO BID [facility] Last Admin: 06/01/20 21:20 Dose: Not Given Documented by: Miscellaneous Information (Pneumonia Protocol [facility] 1 each PO ONCE PRN PRN Reason: Per Protocol Rivaroxaban (Rivaroxaban 15 Mg Tab) 15 mg PO W/SUPPER [facility] Last Admin: 06/01/20 17:40 Dose: 15 mg Documented by: Zinc Sulfate (Zinc Sulfate 220 Mg Cap) 220 mg PO DAILY [facility] Last Admin: 06/01/20 08:16 Dose: 220 mg Documented by: Past medical history to include: Atrial fibrillation, diabetes, hypothyroid, kidney stones, Physical examination: VITAL SIGNS: 96.5, 79, 24, 103/68, 95% on 65% FiO2 Airvo GENERAL: Laying in bed, on Airvo , short of breath PSYCH: Alert and oriented x3; mood and affect anxious NEUROLOGICAL: Cranial nerves grossly intact; no facial asymmetry, moving all 4 limbs Rest of exam as per pulmonary and nursing INVESTIGATIONS, reviewed in the clinical context: May 31: Hemoglobin 15.2 d-dimer 3.31 creatinine 1.4 to CRP less than 5 May 29: D-dimer 5.76 CRP 11.8 May 28: D-dimer 7.04 CRP 20.3 May 26: WBC 11.1 hemoglobin 12.9 potassium 4.8 creatinine 1.01 CRP 63.7 WBC 11.6 hemoglobin 14.5 platelets 350 lymphocytes 0.7 D-dimer 3.87 ABG-pH 7.44 pO2 59 CO2 20 Potassium 5.1 BUN 29 creatinine 1.16 lactic acid 5.4 CRP 165.5 pro-calcitonin 0.42 Coronavirus [PCR]-detected EKG tracing personally reviewed by me-ventricle brace rhythm Chest CT-extensive bilateral comfort 80s of groundglass. Some chronic changes also. Possibly bronchiectasis. Some borderline enlarged mediastinal hilar lymph nodes. Negative for PE Chest x-ray film personally reviewed by me-cardiomegaly with infiltrates Assessment and plan: -Acute bilateral COVID 19 pneumonia, severe. on vitamin C, vitamin D, Pepcid, steroids, patient is chronically on xarelto.-Slow to respond -Acute severe hypoxic respiratory failure from above. Continues on Airvo-65 % high flow. Slow to respond -Obesity BMI 39.5. Patient may follow outpatient weight loss measures -Diabetes mellitus type 2 chronically on insulin. Uncontrolled with hyperglycemia. Follow Accu-Cheks -Hyperlipidemia on Lipitor -Hypothyroid continue with Synthroid -Persistent atrial fibrillation patient on Toprol-XL. -Permanent pacemaker Discussed with the patient. Continue current treatment plan
[2020-06-02] MEDS: methylPREDNISolone SOD SUCCI 40 MG/ML 1 ML VIAL IV SCH ×3 (00:18→17:04)
[2020-06-02] MEDS: LEVOTHYROXINE 25 MCG TAB PO SCH (05:55)
[2020-06-02 07:06] LABS: Glucose,Whole Blood 70 mg/dL (75-99)
[2020-06-02] MEDS: INSULIN ASPART (NovoLOG) 100 UNIT/ML VIAL SQ SCH ×7 (07:20→21:30)
[2020-06-02 07:43] LABS: Glucose,Whole Blood 79 mg/dL (75-99)
[2020-06-02] MEDS: metFORMIN 500 MG TAB PO SCH ×2 (08:37→17:04)
[2020-06-02] MEDS: ASCORBIC ACID 500 MG TAB PO SCH (08:37)
[2020-06-02] MEDS: CHOLECALCIFEROL 25 MCG (1000 IU) TABLET PO SCH (08:37)
[2020-06-02] MEDS: lisinopriL 5 MG TAB PO SCH (08:38)
[2020-06-02] MEDS: ZINC SULFATE 220 MG CAP PO SCH (08:38)
[2020-06-02] MEDS: METOPROLOL SUCCINATE (ER) 100 MG TAB.ER.24H PO SCH ×2 (08:38→21:33)
[2020-06-02] MEDS: FAMOTIDINE 20 MG TAB PO SCH (08:38)
[2020-06-02] MEDS: RIVAROXABAN 15 MG TAB PO SCH (08:38)
[2020-06-02 09:12] LABS: HCT 36.1 % (37.2-46.3); HGB 11.5 g/dL (12.0-15.0); MCH 26.3 pg (27.0-32.0); MCHC 31.9 g/dL (32.0-37.0); MCV 82.6 fL (80.0-97.0); Mean Platelet Volume 12.7 fL (9.5-12.2); Platelet Count 237 X 10*3/uL (140-440); RBC 4.37 X 10*6/uL (4.10-5.20); WBC 24.98 X 10*3/uL (4.50-10.00)
[2020-06-02 09:41] LABS: Basophils # (A) 0.04 X 10*3/uL (0.00-0.10); Basophils % (A) 0.2 %; Eosinophils # (A) 0 X 10*3/uL (0.04-0.35); Eosinophils % (A) 0 %; Lymphocytes # (A) 0.87 X 10*3/uL (0.90-5.00); Lymphocytes % (A) 3.5 %; Monocytes # (A) 0.85 X 10*3/uL (0.20-1.00); Monocytes % (A) 3.4 %; Neutrophils # (A) 22.81 X 10*3/uL (1.80-7.70); Neutrophils % (A) 91.3 %
[2020-06-02 10:33] LABS: African American GFR (CKD) 44.6 (60.0-200.0); BUN/Creat Ratio 59.23 Ratio (12.00-20.00); C Reactive Protein <0.4 mg/dL (0.0-0.8); Calcium 7.8 mg/dL (8.7-10.3); Chloride 117 mmol/L (96-109); Glucose 67 mg/dL (70-110); LDH 433 U/L (120-246); Non-African American GFR(CKD) 38.4 (60.0-200.0); Potassium 4.4 mmol/L (3.5-5.5); Sodium 144 mmol/L (135-145)
[2020-06-02 11:06] LABS: Glucose,Whole Blood 238 mg/dL (75-99)
--- NOTE | 2020-06-02 11:36 | XR ---
EXAMINATION TYPE: XR chest 1V portable DATE OF EXAM: 06/02/2020 COMPARISON: 05/31/2020 INDICATION: Covid 19 TECHNIQUE: Single frontal view of the chest is obtained. FINDINGS: The heart size is [place] prominent. The pulmonary vasculature is dominant. Diffuse increased lung markings are present bilaterally. Consolidation silhouetting the left diaphrag m is present at the left base. Pacemaker overlies left chest IMPRESSION: 1. Diffuse increased lung markings greater in the left lower lobe are nonspecific but can be compatib le with atypical pneumonia in the proper clinical setting.
[2020-06-02] MEDS: SODIUM CHLORIDE 0.9% 1,000 ML IV SCH ×2 (13:06→23:59)
--- NOTE | 2020-06-02 15:27 | P.PN ---
Subjective Progress Note Date: 06/02/20 Principal diagnosis: COVID 19 pneumonia. On 05/29/2020 patient seen in follow-up on medical floor, she remains on high flow oxygen per Airvo, with 60 L, but FiO2 is down to 70%, with pulse ox of 92- 94%, patient does desaturate to 70s quite a easily with any exertion, but she is breathing comfortably at rest. Denies any chest discomfort, she is awake and alert, oriented 3, she has had no fever or chills. No new chest x-ray today, is on IV Solu-Medrol 40 mg every 8 hours, patient is on Xarelto on dose 15 mg once daily, d-dimer is improving, down to 5.76 today, CRP is down to 11.8. No nausea vomiting or diarrhea, patient is tolerating oral diet. Blood cultures show no growth, patient remains on high flow oxygen per Airvo, currently at 60 L and FiO2 of 70%, her pulse ox is ranging between 89-95%, she denies any worsening dyspnea, only occasional cough, no chest discomfort, no fever or chills, patient has been up to the bedside commode, and sitting up in the chair, tolerating activity well. Blood cultures have been negative. Inflammatory markers are improving, d-dimer is improving. Patient continues on IV steroids, and she is on oral anticoagulation 15 mg once daily, and vitamins. On 05/31/2020 patient seen in follow-up. She remains on high flow oxygen per Airvo, currently at 60 features and FiO2 of 70%, with a pulse ox of 90-91%, no worsening dyspnea, patient has been getting up to the chair, she is eating, does not appear to be in any acute distress, lung sounds reveal diffuse crackles bilaterally, she's been afebrile, she does desaturate quite easily with any exertion or speaking, no chest discomfort, no cough. No nausea vomiting or diarrhea, her appetite is fair. Her labs showed improving inflammatory markers and downtrending d-dimer. She remains on Xarelto, IV steroids, and vitamins. On 06/01/2020 patient seen in follow-up on medical floor, last night we placed a central line in the right femoral vein, patient was quite intravascularly depleted and dehydrated, and we ordered IV hydration with 0.9 normal saline at 75 ML per hour on which she remains today. She remains on high flow oxygen at 60 L and 65%, her pulse ox is 95%, she is afebrile, hemodynamically she is stable. She looks and sounds better on today's exam, less confused, she denies any acute distress, no chest pain, no shortness of breath, appears to be breathing comfortably, although does easily desaturate with exertion. SHe is sitting up in bed, eating lunch, last night apparently she had gotten up, she was confused, she had removed her Airvo, and was found by the nurses with low O2 saturation is confused and chewing on the Airvo nosepiece. She is being monitored closely. She is receiving when necessary doses of Haldol. She remains on multivitamins, IV steroids 40 mg every 8 hours, she is on several told, she status post 2 doses of postnasal exam, she was too late for Remdesivir, did receive 1 dose of convalescence plasma. Her last chest x-ray w as yesterday showing scattered infiltrates greater in the right upper and left lower lobes. Progress note dated 06/02/2020. The patient is again seen on the general medical floor. She is in room 482. She's currently remains on AIRVO, at 60 L/m, and an FiO2 of 70%. She is also on saline at 75 mL an hour. A couple days ago, we placed a right femoral triple- lumen catheter. Her volume status was very depleted at that time. Currently, she seems be doing relatively well. She does have a good attitude. White count is 25, hemoglobin 11.5, hematocrit 36.1, and platelet count 237,000. D-dimer is 2.11. Sodium 144, potassium 4.4, chloride 117, CO2 19, anion gap 8, BUN is 77, and creatinine 1.3. LDH is 433, C-reactive protein is less than 0.4. A chest x-ray shows diffuse increased lung markings, greater in the left lower lobe and are nonspecific. Objective - Vital Signs Vital signs: Vital Signs Temp 97.6 F 06/02/20 14:06 Pulse 57 L 06/02/20 14:06 Resp 20 06/02/20 14:06 BP 155/75 06/02/20 14:06 Pulse Ox 93 L 06/02/20 14:06 Intake & Output 0306/02/20 06/02/20 18:59 06:59 18:59 Intake Total 750 300 Balance 750 300 Intake: Intake, IV Titration 750 Amount Sodium Chloride 0.9% 1, 750 000 ml @ 75 mls/hr IV . [id number] [facility] Rx#:[id number] Oral 300 Other: Voiding Method Incontinent Bedside Commode # Voids 1 2 1 - Exam GENERAL EXAM: Alert, active, very pleasant, 79-year-old white female, on 60 L of oxygen and FiO2 of 70% per high flow oxygen device AIRVO. Saturations are 93%. HEAD: Normocephalic/atraumatic. EYES: Normal reaction of pupils, equal size. Conjunctiva pink, sclera white. NOSE: Clear with pink turbinates. THROAT: No erythema or exudates. NECK: No masses, no JVD, no thyroid enlargement, no adenopathy. CHEST: No chest wall deformity. Symmetrical expansion. LUNGS: Equal air entry with diffuse crackles and diffuse coarse rhonchi. CVS: Regular rate and rhythm, normal S1 and S2, no gallops, no murmurs, no rubs. Heart rate 57 bpm. ABDOMEN: Soft, nontender. No hepatosplenomegaly, normal bowel sounds, no guarding or rigidity. EXTREMITIES: No clubbing, no edema, no cyanosis, 2+ pulses and upper and lower extremities. MUSCULOSKELETAL: Muscle strength and tone normal. SPINE: No scoliosis or deformity SKIN: No rashes CENTRAL NERVOUS SYSTEM: Alert and oriented -3. No focal deficits, tone is normal in all 4 extremities. PSYCHIATRIC: Alert and oriented -3. Appropriate affect. Intact judgment and insight. - Labs CBC & Chem 7: 06/02/20 05:45 06/02/20 05:45 Labs: Abnormal Lab Results - Last 24 Hours (Table) 06/01/20 06/01/20 06/02/20 Range/Units 16:47 20:30 05:45 WBC 24.98 H (4.50-10.00) X 10*3/uL Hgb 11.5 L (12.0-15.0) g/dL Hct 36.1 L (37.2-46.3) % MCH 26.3 L (27.0-32.0) pg MCHC 31.9 L (32.0-37.0) g/dL RDW 15.0 H (11.5-14.5) % MPV 12.7 H (9.5-12.2) fL Absolute Nucleated RBC 0.03 H (0.00-0.00) X 10*3/uL Immature Gran # 0.41 H (0.00-0.04) X 10*3/uL Neutrophils # 22.81 H (1.80-7.70) X 10*3/uL Lymphocytes # 0.87 L (0.90-5.00) X 10*3/uL Eosinophils # 0 L (0.04-0.35) X 10*3/uL NRBC/100 WBC Diff 0.1 H (0.0-0.0) /100 WBCS D-Dimer (<0.60) mg/L FEU Chloride (96-109) mmol/L Carbon Dioxide (21.6-31.8) mmol/L BUN (9.0-27.0) mg/dL Est GFR (CKD-EPI)AfAm (60.0-200.0) Est GFR (CKD-EPI)NonAf (60.0-200.0) BUN/Creatinine Ratio (12.00-20.00) Ratio Glucose (70-110) mg/dL POC Glucose (mg/dL) 192 H 124 H (75-99) mg/dL Calcium (8.7-10.3) mg/dL Lactate Dehydrogenase (120-246) U/L 06/02/20 06/02/20 06/02/20 Range/Units 05:45 05:45 06:57 WBC (4.50-10.00) X 10*3/uL Hgb (12.0-15.0) g/dL Hct (37.2-46.3) % MCH (27.0-32.0) pg MCHC (32.0-37.0) g/dL RDW (11.5-14.5) % MPV (9.5-12.2) fL Absolute Nucleated RBC (0.00-0.00) X 10*3/uL Immature Gran # (0.00-0.04) X 10*3/uL Neutrophils # (1.80-7.70) X 10*3/uL Lymphocytes # (0.90-5.00) X 10*3/uL Eosinophils # (0.04-0.35) X 10*3/uL NRBC/100 WBC Diff (0.0-0.0) /100 WBCS D-Dimer 2.11 H (<0.60) mg/L FEU Chloride 117 H (96-109) mmol/L Carbon Dioxide 19.0 L (21.6-31.8) mmol/L BUN 77.0 H (9.0-27.0) mg/dL Est GFR (CKD-EPI)AfAm 44.6 L (60.0-200.0) Est GFR (CKD-EPI)NonAf 38.4 L (60.0-200.0) BUN/Creatinine Ratio 59.23 H (12.00-20.00) Ratio Glucose 67 L (70-110) mg/dL POC Glucose (mg/dL) 70 L (75-99) mg/dL Calcium 7.8 L (8.7-10.3) mg/dL Lactate Dehydrogenase 433 H (120-246) U/L 06/02/20 Range/Units 10:54 WBC (4.50-10.00) X 10*3/uL Hgb (12.0-15.0) g/dL Hct (37.2-46.3) % MCH (27.0-32.0) pg MCHC (32.0-37.0) g/dL RDW (11.5-14.5) % MPV (9.5-12.2) fL Absolute Nucleated RBC (0.00-0.00) X 10*3/uL Immature Gran # (0.00-0.04) X 10*3/uL Neutrophils # (1.80-7.70) X 10*3/uL Lymphocytes # (0.90-5.00) X 10*3/uL Eosinophils # (0.04-0.35) X 10*3/uL NRBC/100 WBC Diff (0.0-0.0) /100 WBCS D-Dimer (<0.60) mg/L FEU Chloride (96-109) mmol/L Carbon Dioxide (21.6-31.8) mmol/L BUN (9.0-27.0) mg/dL Est GFR (CKD-EPI)AfAm (60.0-200.0) Est GFR (CKD-EPI)NonAf (60.0-200.0) BUN/Creatinine Ratio (12.00-20.00) Ratio Glucose (70-110) mg/dL POC Glucose (mg/dL) 238 H (75-99) mg/dL Calcium (8.7-10.3) mg/dL Lactate Dehydrogenase (120-246) U/L Assessment and Plan Assessment: #1. Acute severe hypoxemic respiratory failure related to COVID 19 pneumonitis, and patient had a rapid deterioration in her oxygenation status since admission. Patient had exposure to COVID 19 positive . Onset of symptoms within 7 days prior to presentation. Patient is status post 1 unit of convalescent plasma, 2 doses of Actemra 400 mg. #2. Elevated inflammatory markers related to the above. #3. Elevated d-dimer, but no evidence of pulmonary embolism on CTA chest, patient takes Xarelto on a regular basis. #4. Diabetes mellitus type 2. #5. Chronic A. fib on Xarelto. #6. Permanent pacemaker implantation. #7. Hypothyroidism. #8. Chronic kidney disease, unspecified. #9. Osteoarthritis. #10. Acute toxic metabolic encephalopathy, delirium, intermittent, related to severe hypoxic respiratory failure, dehydration. Patient is receiving IV hydration, FiO2 is being weaned down, but patient remains on high flow oxygen per Airvo, she is receiving when necessary doses of Haldol. #11. Acute kidney injury related to dehydration, ATN. Plan: Plan dated 06/02/2020. The patient's Lasix was discontinued. She remains on saline at 75 mL an hour. We encourage her to eat and take oral liquids in. The patient will continue with vitamin C, vitamin D3, and zinc, as well as oral anticoagulation. Chest x-ray looks relatively stable to slightly improved. Saturations are stable. Clinically she looks well. Continue on corticosteroids. Prognosis is guarded. We'll continue to follow. A central line was placed in the right femoral space, a couple days ago. Time with Patient: Less than 30
[2020-06-02 16:17] LABS: Glucose,Whole Blood 325 mg/dL (75-99)
[2020-06-02 21:01] LABS: Glucose,Whole Blood 220 mg/dL (75-99)
[2020-06-02] MEDS: INSULIN DETEMIR (LEVEMIR) 100 UNIT/ML SYR SQ SCH (21:30)
[2020-06-02] MEDS: ATORVASTATIN 10 MG TAB PO SCH (21:32)
--- NOTE | 2020-06-02 23:07 | P.PN ---
Progress Note - Text Progress Note Date: 06/02/20 Chief Complaint: Short of breath History of presenting complaint: This is a pleasant 79-year-old patient, follows a Dr. Romero. Chronic stable medical conditions include atrial fibrillation, diabetes, hypothyroid, history of kidney stones. Ostial arthritis. Has a pacemaker. Patient presents increasing shortness of breath with minimal exertion. Chest pressure. No cough no fever no chills. Feeling very tired and weak and rundown. No body aches. No diarrhea. No loss of smell or taste. Patient be put on high flow oxygen. Is able to eat some food. Admitted with bilateral COVID 19 pneumonia. Severe. Started vitamin C vitamin D Pepcid steroids, home dose of Seroquel continued. Patient became more short of breath. Was moved to the ICU. Moved back to the medical floor. Today: Laying in bed Remains on high flow Airvo. Tired. A bit lethargic. Short of breath. Oral intake about 50% Review of systems: Was done for constitutional, cardiovascular, GI, pulmonary. relevant finding as above Active Medications Ascorbic Acid (Ascorbic Acid 500 Mg Tab) 1,000 mg PO DAILY [facility] Last Admin: 06/02/20 08:37 Dose: 1,000 mg Documented by: Atorvastatin Calcium (Atorvastatin 10 Mg Tab) 10 mg PO HS [facility] Last Admin: 06/01/20 21:10 Dose: 10 mg Documented by: Cholecalciferol (Cholecalciferol 25 Mcg (1000 Iu) Tablet) 25 mcg PO DAILY [facility] Last Admin: 06/02/20 08:37 Dose: 25 mcg Documented by: Famotidine (Famotidine 20 Mg Tab) 20 mg PO DAILY [facility] Last Admin: 06/02/20 08:38 Dose: 20 mg Documented by: Haloperidol Lactate (Haloperidol Lactate 5 Mg/Ml 1 Ml Vial) 2.5 mg IM ONCE PRN PRN Reason: Agitation or Acute Psychosis Sodium Chloride (Saline 0.9%) 1,000 mls @ 75 mls/hr IV .[id number] [facility] Last Admin: 06/02/20 13:06 Dose: Not Given Documented by: Insulin Aspart (Insulin Aspart (Novolog) 100 Unit/Ml Vial) 5 unit SQ AC-TID [facility] Last Admin: 06/02/20 17:04 Dose: 5 unit Documented by: Insulin Aspart (Insulin Aspart (Novolog) 100 Unit/Ml Vial) 0 unit SQ ACHS [facility]; Protocol Last Admin: 06/02/20 17:05 Dose: 8 unit Documented by: Insulin Detemir (Insulin Detemir (Levemir) 100 Unit/Ml Syr) 9 unit SQ HS [facility] Last Admin: 06/01/20 21:09 Dose: 9 unit Documented by: Levothyroxine Sodium (Levothyroxine 25 Mcg Tab) 25 mcg PO DAILY@0630 [facility] Last Admin: 06/02/20 05:55 Dose: 25 mcg Documented by: Lisinopril (Lisinopril 5 Mg Tab) 5 mg PO DAILY [facility] Last Admin: 06/02/20 08:38 Dose: 5 mg Documented by: Metformin HCl (Metformin 500 Mg Tab) 500 mg PO BID-W/MEALS [facility] Last Admin: 06/02/20 17:04 Dose: 500 mg Documented by: Methylprednisolone Sodium Succinate (Methylprednisolone Sod Succi 40 Mg/Ml 1 Ml Vial) 40 mg IV Q8HR [facility] Last Admin: 06/02/20 17:04 Dose: 40 mg Documented by: Metoprolol Succinate (Metoprolol Succinate (Er) 100 Mg Tab.Er.24h) 150 mg PO BID [facility] Last Admin: 06/02/20 08:38 Dose: 150 mg Documented by: Miscellaneous Information ([facility] 1 each PO ONCE PRN PRN Reason: Per Protocol Rivaroxaban (Rivaroxaban 15 Mg Tab) 15 mg PO W/SUPPER [facility] Last Admin: 06/02/20 08:38 Dose: 15 mg Documented by: Zinc Sulfate (Zinc Sulfate 220 Mg Cap) 220 mg PO DAILY [facility] Last Admin: 06/02/20 08:38 Dose: 220 mg Documented by: Past medical history to include: Atrial fibrillation, diabetes, hypothyroid, kidney stones, Physical examination: VITAL SIGNS: 97.6, 57, 20, 155/75, 93% on high flow 15 L/FiO2 68% on Airvo GENERAL: Laying in bed, on Airvo , short of breath PSYCH: Alert and oriented x3; mood and affect anxious NEUROLOGICAL: Cranial nerves grossly intact; no facial asymmetry, moving all 4 limbs Rest of exam as per pulmonary and nursing INVESTIGATIONS, reviewed in the clinical context: June 02: WBC 24.9 hemoglobin 11.5 d-dimer 2.11 CRP less than 0.4 May 31: Hemoglobin 15.2 d-dimer 3.31 creatinine 1.4 to CRP less than 5 May 29: D-dimer 5.76 CRP 11.8 May 28: D-dimer 7.04 CRP 20.3 May 26: WBC 11.1 hemoglobin 12.9 potassium 4.8 creatinine 1.01 CRP 63.7 WBC 11.6 hemoglobin 14.5 platelets 350 lymphocytes 0.7 D-dimer 3.87 ABG-pH 7.44 pO2 59 CO2 20 Potassium 5.1 BUN 29 creatinine 1.16 lactic acid 5.4 CRP 165.5 pro-calcitonin 0.42 Coronavirus [PCR]-detected EKG tracing personally reviewed by me-ventricle brace rhythm Chest CT-extensive bilateral comfort 80s of groundglass. Some chronic changes also. Possibly bronchiectasis. Some borderline enlarged mediastinal hilar lymph nodes. Negative for PE Chest x-ray film personally reviewed by me-cardiomegaly with infiltrates Assessment and plan: -Acute bilateral COVID 19 pneumonia, severe. on vitamin C, vitamin D, Pepcid, steroids, patient is chronically on xarelto.-Slow to respond -Acute severe hypoxic respiratory failure from above. Continues on Airvo-65 % high flow. Slow to respond -Obesity BMI 39.5. Patient may follow outpatient weight loss measures -Diabetes mellitus type 2 chronically on insulin. Uncontrolled with hyperglycemia. Follow Accu-Cheks. Levemir placed. Glucophage -Hyperlipidemia on Lipitor -Hypothyroid continue with Synthroid -Persistent atrial fibrillation patient on Toprol-XL. -Permanent pacemaker Discussed with the patient. Follow with pulmonary
[2020-06-03] MEDS: methylPREDNISolone SOD SUCCI 40 MG/ML 1 ML VIAL IV SCH ×4 (00:04→23:27)
[2020-06-03] MEDS: LEVOTHYROXINE 25 MCG TAB PO SCH (06:05)
[2020-06-03 07:05] LABS: Glucose,Whole Blood 47 mg/dL (75-99)
[2020-06-03 07:05] LABS: Glucose,Whole Blood 47 mg/dL (75-99)
[2020-06-03] MEDS ORDERED: DEXTROSE 50% SYRINGE 50 ML IVP ONE (07:06)
[2020-06-03 07:14] LABS: Glucose,Whole Blood 48 mg/dL (75-99)
[2020-06-03] MEDS: INSULIN ASPART (NovoLOG) 100 UNIT/ML VIAL SQ SCH ×7 (07:27→21:17)
[2020-06-03 07:36] LABS: Glucose,Whole Blood 143 mg/dL (75-99)
[2020-06-03] MEDS: METOPROLOL SUCCINATE (ER) 100 MG TAB.ER.24H PO SCH ×2 (08:33→21:16)
[2020-06-03] MEDS: RIVAROXABAN 15 MG TAB PO SCH (08:33)
[2020-06-03] MEDS: ASCORBIC ACID 500 MG TAB PO SCH (08:34)
[2020-06-03] MEDS: CHOLECALCIFEROL 25 MCG (1000 IU) TABLET PO SCH (08:34)
[2020-06-03] MEDS: lisinopriL 5 MG TAB PO SCH (08:34)
[2020-06-03] MEDS: FAMOTIDINE 20 MG TAB PO SCH (08:34)
[2020-06-03] MEDS: ZINC SULFATE 220 MG CAP PO SCH (08:34)
[2020-06-03] MEDS: metFORMIN 500 MG TAB PO SCH ×2 (08:35→16:32)
[2020-06-03 11:21] LABS: Glucose,Whole Blood 221 mg/dL (75-99)
--- NOTE | 2020-06-03 14:47 | P.PN ---
Subjective Progress Note Date: 06/03/20 Principal diagnosis: COVID 19 pneumonia. On 05/29/2020 patient seen in follow-up on medical floor, she remains on high flow oxygen per Airvo, with 60 L, but FiO2 is down to 70%, with pulse ox of 92- 94%, patient does desaturate to 70s quite a easily with any exertion, but she is breathing comfortably at rest. Denies any chest discomfort, she is awake and alert, oriented 3, she has had no fever or chills. No new chest x-ray today, is on IV Solu-Medrol 40 mg every 8 hours, patient is on Xarelto on dose 15 mg once daily, d-dimer is improving, down to 5.76 today, CRP is down to 11.8. No nausea vomiting or diarrhea, patient is tolerating oral diet. Blood cultures show no growth, patient remains on high flow oxygen per Airvo, currently at 60 L and FiO2 of 70%, her pulse ox is ranging between 89-95%, she denies any worsening dyspnea, only occasional cough, no chest discomfort, no fever or chills, patient has been up to the bedside commode, and sitting up in the chair, tolerating activity well. Blood cultures have been negative. Inflammatory markers are improving, d-dimer is improving. Patient continues on IV steroids, and she is on oral anticoagulation 15 mg once daily, and vitamins. On 05/31/2020 patient seen in follow-up. She remains on high flow oxygen per Airvo, currently at 60 features and FiO2 of 70%, with a pulse ox of 90-91%, no worsening dyspnea, patient has been getting up to the chair, she is eating, does not appear to be in any acute distress, lung sounds reveal diffuse crackles bilaterally, she's been afebrile, she does desaturate quite easily with any exertion or speaking, no chest discomfort, no cough. No nausea vomiting or diarrhea, her appetite is fair. Her labs showed improving inflammatory markers and downtrending d-dimer. She remains on Xarelto, IV steroids, and vitamins. On 06/01/2020 patient seen in follow-up on medical floor, last night we placed a central line in the right femoral vein, patient was quite intravascularly depleted and dehydrated, and we ordered IV hydration with 0.9 normal saline at 75 ML per hour on which she remains today. She remains on high flow oxygen at 60 L and 65%, her pulse ox is 95%, she is afebrile, hemodynamically she is stable. She looks and sounds better on today's exam, less confused, she denies any acute distress, no chest pain, no shortness of breath, appears to be breathing comfortably, although does easily desaturate with exertion. SHe is sitting up in bed, eating lunch, last night apparently she had gotten up, she was confused, she had removed her Airvo, and was found by the nurses with low O2 saturation is confused and chewing on the Airvo nosepiece. She is being monitored closely. She is receiving when necessary doses of Haldol. She remains on multivitamins, IV steroids 40 mg every 8 hours, she is on several told, she status post 2 doses of postnasal exam, she was too late for Remdesivir, did receive 1 dose of convalescence plasma. Her last chest x-ray w as yesterday showing scattered infiltrates greater in the right upper and left lower lobes. Progress note dated 06/02/2020. The patient is again seen on the general medical floor. She is in room 482. She's currently remains on AIRVO, at 60 L/m, and an FiO2 of 70%. She is also on saline at 75 mL an hour. A couple days ago, we placed a right femoral triple- lumen catheter. Her volume status was very depleted at that time. Currently, she seems be doing relatively well. She does have a good attitude. White count is 25, hemoglobin 11.5, hematocrit 36.1, and platelet count 237,000. D-dimer is 2.11. Sodium 144, potassium 4.4, chloride 117, CO2 19, anion gap 8, BUN is 77, and creatinine 1.3. LDH is 433, C-reactive protein is less than 0.4. A chest x-ray shows diffuse increased lung markings, greater in the left lower lobe and are nonspecific. Progress note dated 06/03/2020. 79-year-old female who is again seen on the general medical floor. She is in room 482. She remains on AIRVO. But her oxygen requirements have increased, as she is now on 60 L/m, with an FiO2 of 90%. Yesterday, her FiO2 was 70%. She also remains on saline at 75 mL an hour. A couple days ago, we did place a right femoral triple-lumen catheter in her. No new labs today. The patient is really not any better, but not much worse either. Her overall clinical condition remains about the same. Her chest x-ray, and my opinion, is essentially unchanged, compared to a chest x-ray done on May 31. The findings in the lower lobes, are nonspecific and compatible with atypical pneumonia. Objective - Vital Signs Vital signs: Vital Signs Temp 97.6 F 06/03/20 13:46 Pulse 63 06/03/20 13:46 Resp 16 06/03/20 13:46 BP 96/42 06/03/20 10:12 Pulse Ox 93 L 06/03/20 13:46 Intake & Output 06/02/20 06/03/20 06/03/20 18:59 06:59 18:59 Intake Total 600 300 Balance 600 300 Intake: Oral 600 300 Other: Voiding Method Bedside Commode # Voids 1 2 1 # Bowel Movements 1 - Exam No acute distress, oriented 3. Patient remains on AIRVO. Does not look particularly short of breath. HEENT examination is grossly unremarkable. Mucous membranes are moist. No oral lesions. Neck supple. Full range of motion. No adenopathy thyromegaly or neck vein distention. Cardiovascular examination reveals regular rhythm rate. S1-S2 normal. No S3 or S4. No discernible murmur noted. Heart sounds are distant. Heart rate 63 bpm. Lungs reveal coarse bilateral rhonchi. Bibasilar crackles are noted. No wheezes. Breath sounds are equal bilaterally.. Abdomen soft bowel sounds are heard. No masses or tenderness. Extremities are intact. No cyanosis clubbing or edema. Right femoral triple lumen catheter is noted. Skin is without rash or lesion. Neurologic examination is brief but nonfocal. - Labs CBC & Chem 7: 06/02/20 05:45 06/02/20 05:45 Labs: Abnormal Lab Results - Last 24 Hours (Table) 06/02/20 06/02/20 06/03/20 Range/Units 16:13 20:59 06:46 POC Glucose (mg/dL) 325 H 220 H 47 L (75-99) mg/dL 06/03/20 06/03/20 06/03/20 Range/Units 06:48 07:04 07:24 POC Glucose (mg/dL) 47 L 48 L 143 H (75-99) mg/dL 06/03/20 Range/Units 11:19 POC Glucose (mg/dL) 221 H (75-99) mg/dL Assessment and Plan Assessment: #1. Acute severe hypoxemic respiratory failure related to COVID 19 pneumonitis, and patient had a rapid deterioration in her oxygenation status since admission. Patient had exposure to COVID 19 positive . Onset of symptoms within 7 days prior to presentation. Patient is status post 1 unit of convalescent plasma, 2 doses of Actemra 400 mg. #2. Elevated inflammatory markers related to the above. #3. Elevated d-dimer, but no evidence of pulmonary embolism on CTA chest, patient takes Xarelto on a regular basis. #4. Diabetes mellitus type 2. #5. Chronic A. fib on Xarelto. #6. Permanent pacemaker implantation. #7. Hypothyroidism. #8. Chronic kidney disease, unspecified. #9. Osteoarthritis. #10. Acute toxic metabolic encephalopathy, delirium, intermittent, related to severe hypoxic respiratory failure, dehydration. Patient is receiving IV hydration, FiO2 is being weaned down, but patient remains on high flow oxygen per AIRVO, she is receiving when necessary doses of Haldol. #11. Acute kidney injury related to dehydration, ATN. Plan: Plan dated 06/03/2020. The patient appears to be clinically about the same. Her vision requirements did go up. Yesterday she was on 70%, and today she is on 90%. She doesn't look particularly short of breath. She's not tachypnea. There is no conversational dyspnea. She remains on IV fluids at 75 mL an hour. We'll continue to monitor and watch her closely. Prognosis is very guarded. She has received all appropriate therapies including TOCI. Time with Patient: Less than 30
[2020-06-03 16:09] LABS: Glucose,Whole Blood 196 mg/dL (75-99)
[2020-06-03] MEDS: SODIUM CHLORIDE 0.9% 1,000 ML IV SCH (16:11)
[2020-06-03 21:12] LABS: Glucose,Whole Blood 175 mg/dL (75-99)
[2020-06-03] MEDS: INSULIN DETEMIR (LEVEMIR) 100 UNIT/ML SYR SQ SCH (21:17)
[2020-06-03] MEDS: ATORVASTATIN 10 MG TAB PO SCH (21:17)
--- NOTE | 2020-06-03 21:44 | P.PN ---
Progress Note - Text Progress Note Date: 06/03/20 Chief Complaint: Short of breath History of presenting complaint: This is a pleasant 79-year-old patient, follows a Dr. Romero. Chronic stable medical conditions include atrial fibrillation, diabetes, hypothyroid, history of kidney stones. Ostial arthritis. Has a pacemaker. Patient presents increasing shortness of breath with minimal exertion. Chest pressure. No cough no fever no chills. Feeling very tired and weak and rundown. No body aches. No diarrhea. No loss of smell or taste. Patient be put on high flow oxygen. Is able to eat some food. Admitted with bilateral COVID 19 pneumonia. Severe. Started vitamin C vitamin D Pepcid steroids, home dose of Seroquel continued. Patient became more short of breath. Was moved to the ICU. Moved back to the medical floor. Today: Laying in bed tired. Remains on high flow Airvo. Tired. lethargic. Short of breath. Oral intake variable Review of systems: Was done for constitutional, cardiovascular, GI, pulmonary. relevant finding as above Active Medications Ascorbic Acid (Ascorbic Acid 500 Mg Tab) 1,000 mg PO DAILY [facility] Last Admin: 06/03/20 08:34 Dose: 1,000 mg Documented by: Atorvastatin Calcium (Atorvastatin 10 Mg Tab) 10 mg PO HS [facility] Last Admin: 06/03/20 21:17 Dose: 10 mg Documented by: Cholecalciferol (Cholecalciferol 25 Mcg (1000 Iu) Tablet) 25 mcg PO DAILY [facility] Last Admin: 06/03/20 08:34 Dose: 25 mcg Documented by: Famotidine (Famotidine 20 Mg Tab) 20 mg PO DAILY [facility] Last Admin: 06/03/20 08:34 Dose: 20 mg Documented by: Haloperidol Lactate (Haloperidol Lactate 5 Mg/Ml 1 Ml Vial) 2.5 mg IM ONCE PRN PRN Reason: Agitation or Acute Psychosis Sodium Chloride (Saline 0.9%) 1,000 mls @ 75 mls/hr IV .[id number] [facility] Last Admin: 06/03/20 16:11 Dose: 75 mls/hr Documented by: Insulin Aspart (Insulin Aspart (Novolog) 100 Unit/Ml Vial) 5 unit SQ AC-TID [facility] Last Admin: 06/03/20 16:32 Dose: 5 unit Documented by: Insulin Aspart (Insulin Aspart (Novolog) 100 Unit/Ml Vial) 0 unit SQ ACHS [facility]; Protocol Last Admin: 06/03/20 21:17 Dose: 2 unit Documented by: Insulin Detemir (Insulin Detemir (Levemir) 100 Unit/Ml Syr) 9 unit SQ HS [facility] Last Admin: 06/03/20 21:17 Dose: 9 unit Documented by: Levothyroxine Sodium (Levothyroxine 25 Mcg Tab) 25 mcg PO DAILY@0630 [facility] Last Admin: 06/03/20 06:05 Dose: 25 mcg Documented by: Lisinopril (Lisinopril 5 Mg Tab) 5 mg PO DAILY [facility] Last Admin: 06/03/20 08:34 Dose: Not Given Documented by: Metformin HCl (Metformin 500 Mg Tab) 500 mg PO BID-W/MEALS [facility] Last Admin: 06/03/20 16:32 Dose: 500 mg Documented by: Methylprednisolone Sodium Succinate (Methylprednisolone Sod Succi 40 Mg/Ml 1 Ml Vial) 40 mg IV Q8HR [facility] Last Admin: 06/03/20 16:33 Dose: 40 mg Documented by: Metoprolol Succinate (Metoprolol Succinate (Er) 100 Mg Tab.Er.24h) 150 mg PO BID [facility] Last Admin: 06/03/20 21:16 Dose: 150 mg Documented by: Miscellaneous Information (Pneumonia Protocol Utilized 1 Each Misc) 1 each PO ONCE PRN PRN Reason: Per Protocol Rivaroxaban (Rivaroxaban 15 Mg Tab) 15 mg PO W/SUPPER [facility] Last Admin: 06/03/20 08:33 Dose: 15 mg Documented by: Zinc Sulfate (Zinc Sulfate 220 Mg Cap) 220 mg PO DAILY [facility] Last Admin: 06/03/20 08:34 Dose: 220 mg Documented by: Past medical history to include: Atrial fibrillation, diabetes, hypothyroid, kidney stones, Physical examination: VITAL SIGNS: 97.6, 63, 16, 105/73, 90% on 15 L high flow with FiO2 100% GENERAL: Laying in bed, on Airvo , short of breath, tired PSYCH: Alert and oriented x3; mood and affect anxious NEUROLOGICAL: Cranial nerves grossly intact; no facial asymmetry, moving all 4 limbs Rest of exam as per pulmonary and nursing INVESTIGATIONS, reviewed in the clinical context: June 02: WBC 24.9 hemoglobin 11.5 d-dimer 2.11 CRP less than 0.4 May 31: Hemoglobin 15.2 d-dimer 3.31 creatinine 1.4 to CRP less than 5 May 29: D-dimer 5.76 CRP 11.8 May 28: D-dimer 7.04 CRP 20.3 May 26: WBC 11.1 hemoglobin 12.9 potassium 4.8 creatinine 1.01 CRP 63.7 WBC 11.6 hemoglobin 14.5 platelets 350 lymphocytes 0.7 D-dimer 3.87 ABG-pH 7.44 pO2 59 CO2 20 Potassium 5.1 BUN 29 creatinine 1.16 lactic acid 5.4 CRP 165.5 pro-calcitonin 0.42 Coronavirus [PCR]-detected EKG tracing personally reviewed by me-ventricle brace rhythm Chest CT-extensive bilateral comfort 80s of groundglass. Some chronic changes also. Possibly bronchiectasis. Some borderline enlarged mediastinal hilar lymph nodes. Negative for PE Chest x-ray film personally reviewed by il-cardiomegaly with infiltrates Assessment and plan: -Acute bilateral COVID 19 pneumonia, severe. on vitamin C, vitamin D, Pepcid, steroids, patient is chronically on xarelto.-Worsening -Acute severe hypoxic respiratory failure from above. Continues on Airvo-100 % high flow. Worsening -Obesity BMI 39.5. Patient may follow outpatient weight loss measures -Diabetes mellitus type 2 chronically on insulin. Uncontrolled with hyperglycemia. Follow Accu-Cheks. Levemir placed. Glucophage-hold -Hyperlipidemia on Lipitor -Hypothyroid continue with Synthroid -Persistent atrial fibrillation patient on Toprol-XL. -Permanent pacemaker Discussed with the patient. Follow with pulmonary. Prognosis guarded
[2020-06-04 01:37] LABS: Glucose,Whole Blood 91 mg/dL (75-99)
[2020-06-04 02:00] LABS: ABG Base Excess -12.5 mmol/L; ABG HCO3 17 mmol/L (21-25); ABG Oxygen Saturation 89.9 % (94-97); ABG PCO2 53 mmHg (35-45); ABG PO2 73 mmHg (83-108); ABG TCO2 19 mmol/L (19-24); Allen Test Performed? Yes
[2020-06-04] MEDS ORDERED: SODIUM BICARB 8.4% 50 ML SYR (1 MEQ/ML) IV STA (02:10)
--- NOTE | 2020-06-04 02:48 | P.EN ---
A team was called on the patient on 06/03/2020 @ 2036 for worsening hypoxemia. 79 year old female , admitted for aucte COIVD penumonitis, resulting in acute hypoxic respiratory failure , patient presented with COVID with 7 day of symptoms, after having contact with her positive coivd infection who has completely recovered at this time. she received steroids , convalescent plasma , and actemra. patient has not showing big improvements and was maintained on Airvo, she has episodes of intermittent delirium .. however, now she is having worsening hypoxemia to low 80% despite airvo with 60L. patient cant have a meaningful conversation (but seems to be her baseline since coming to the hospital with short intermittent episodes of delirium) she is not in any distress. lungs with good breath sounds bilateral alert, awake , but disoriented no leg edema bilaterally abd soft , triple lumen in right groin CXR images reviewed labs reviewed, she has elevated WBC, and elevated D-dimer and elevated inflammatory markers reflecting poor prognosis she is on xarelto for history of afib acute hypoxic respiratoy failure 2/2 acute covid pneumonitis plan increase respiratory support to use Bipap at 12/6 place her on tele to monitor oxygen sat continue with current supportive care patient was followed up , and she seems to be comfortable now, maintaining her oxygen sat at 90-92% , with current settings of bipap 32 minutes were spent in critical care service in the care of this complex patient
[2020-06-04] MEDS: SODIUM CHLORIDE 0.9% 1,000 ML IV SCH (02:51)
[2020-06-04 02:58] LABS: Glucose,Whole Blood 162 mg/dL (75-99)
[2020-06-04] MEDS ORDERED: DEXTROSE 5% IN WATER 1,000 ML with SODIUM BICARB (1 MEQ/ML) 150 ML IV SCH (03:00)
--- NOTE | 2020-06-04 03:09 | P.EN ---
A team called on this patient 06/04/2020 @ 1:47 , due to worsening mental status , and lethargy patient from earlier was placed on Bipap due to increase oxygen requirement. she tolerated that initially , however, she took a turn into the worse, and became lethargic , and unresponsive. patient evaluated she looks worse, lethargic, drowsy, barely opens her eyes, blood pressure difficult to detect, it seems to be in the 80s systolic estimated with weak thready left radial pulse. patient was encouraged to stay awake , but she can barely lift her head. opens eyes briefly to strong verbal with gentle tactile stimulation no wet diapers for about 5-6 hours ABGs taken, while increase bipap settings to 14/6 , and family contacted to discuss code status and next step in her care I spoke with the , explained to him her current condition and our options in case we need respiratory support. he never had such a discussion with his , and could not express her wishes. he wanted everything medically possible to be pursued including intubation , despite me explaining that with COVID respiratory failure usually outcomes are poor when we get to mechanical ventilation , especially taking into consideration her age and other comorbidities. I also explained that as a physician, in my opinion, mechanically ventilated patients at this age group do not do well and might just be a way to prolong patient suffering. he verbalized understanding , and wanted to keep her full code including elective intubation if needed, until he discusses further with his sons in the morning . assessment patient ABG showed acute hypercapnic respiratory failure with respiratory and metabolic acidosis. acute hypoxic respiratoy failure 2/2 COVID pneumonitis plan patient to continue on the adjusted BIpap settings of 14/6 given a dose of 1 amp bicarb IV push strted on bicarb drip new set of labs ordered CBC, CMP, lactic acid, and inflammatory markers. blood cultures taken, patient has right groin triple lumen day 4 , no fevers, but does have high WBC (likely reactive to steroids) tafoya cath inserted for critical care monitoring of urine output and kidney perfusion patient transferred to the ICU ICU attending dr Pisano updated patient seems to be more awake (still lethargic, but following commands) with above measures blood pressure still difficult to assess , but good amount of urine came out with tafoya cath prognosis is guarded, patient condition is critical , possible need for intubation 48 minutes were spent in critical care time in the care of this complex patient
[2020-06-04 03:23] LABS: Basophils % (A) 0 %; Eosinophils % (A) 0 %; HCT 39.7 % (34.0-46.0); Hypochromasia Moderate; Lymphocytes # (A) 0.4 k/uL (1.0-4.8); Lymphocytes % (A) 1 %; MCH 26.3 pg (25.0-35.0); MCHC 30.7 g/dL (31.0-37.0); MCV 85.6 fL (80.0-100.0); Mean Platelet Volume 10.7; Monocytes # (A) 0.9 k/uL (0-1.0); Monocytes % (A) 3 %; Neutrophils # (A) 31.6 k/uL (1.3-7.7); Neutrophils % (A) 96 %; Platelet Count 207 k/uL (150-450); RBC 4.64 m/uL (3.80-5.40); RDW 15.2 % (11.5-15.5)
[2020-06-04 03:30] LABS: HGB 12.2 gm/dL (11.4-16.0)
[2020-06-04 03:43] LABS: D-Dimer 3.04 mg/L FEU (<0.60)
[2020-06-04 03:46] LABS: ALT 35 U/L (4-34); AST 54 U/L (14-36); African American GFR (CKD) 47 (>60 ml/min/1.73 sqM); Albumin 2.8 g/dL (3.5-5.0); Alkaline Phosphatase 128 U/L (38-126); Anion Gap 7 mmol/L; Blood Urea Nitrogen 55 mg/dL (7-17); Calcium 8.3 mg/dL (8.4-10.2); Carbon Dioxide 21 mmol/L (22-30); Chloride 118 mmol/L (98-107); Globulin 2.7 g/dL; Glucose 79 mg/dL (74-99); Non-African American GFR(CKD) 41 (>60 ml/min/1.73 sqM); Sodium 146 mmol/L (137-145); Total Bilirubin 0.8 mg/dL (0.2-1.3); Total Protein 5.5 g/dL (6.3-8.2)
[2020-06-04 03:57] LABS: Potassium 6.2 mmol/L (3.5-5.1)
[2020-06-04 04:21] LABS: C Reactive Protein <5.0 mg/L (<10.0)
[2020-06-04 04:24] LABS: LDH 2034 U/L (313-618)
[2020-06-04] MEDS ORDERED: SODIUM CHLORIDE 0.9% 1,000 ML IV ONE ×2 (04:40→10:00)
[2020-06-04] MEDS ORDERED: SODIUM BICARB 8.4% 50 ML SYR (1 MEQ/ML) IV ONE (04:41)
[2020-06-04] MEDS ORDERED: INSULIN REGULAR 100 UNIT/ML VIAL IV ONE (04:41)
[2020-06-04] MEDS ORDERED: DEXTROSE 50% SYRINGE 50 ML IVP STA (04:52)
[2020-06-04] MEDS: SODIUM POLYSTYRENE SULFONATE 15 GM/60 ML BOTTLE PO ONE ×2 (04:59→05:18)
[2020-06-04] MEDS: LEVOTHYROXINE 25 MCG TAB PO SCH (05:39)
[2020-06-04 06:43] LABS: Glucose,Whole Blood 144 mg/dL (75-99)
[2020-06-04] MEDS: INSULIN ASPART (NovoLOG) 100 UNIT/ML VIAL SQ SCH ×2 (08:26)
[2020-06-04] MEDS ORDERED: FAMOTIDINE 20 MG/2 ML VIAL IV SCH (09:00)
[2020-06-04] MEDS ORDERED: SODIUM CHLORIDE 0.45% 1,000 ML IV SCH ×2 (09:00→09:15)
--- NOTE | 2020-06-04 09:05 | P.PN ---
Subjective Progress Note Date: 06/04/20 On 05/29/2020 patient seen in follow-up on medical floor, she remains on high flow oxygen per Airvo, with 60 L, but FiO2 is down to 70%, with pulse ox of 92- 94%, patient does desaturate to 70s quite a easily with any exertion, but she is breathing comfortably at rest. Denies any chest discomfort, she is awake and alert, oriented 3, she has had no fever or chills. No new chest x-ray today, is on IV Solu-Medrol 40 mg every 8 hours, patient is on Xarelto on dose 15 mg once daily, d-dimer is improving, down to 5.76 today, CRP is down to 11.8. No nausea vomiting or diarrhea, patient is tolerating oral diet. Blood cultures show no growth, patient remains on high flow oxygen per Airvo, currently at 60 L and FiO2 of 70%, her pulse ox is ranging between 89-95%, she denies any worsening dyspnea, only occasional cough, no chest discomfort, no fever or chills, patient has been up to the bedside commode, and sitting up in the chair, tolerating activity well. Blood cultures have been negative. Inflammatory markers are improving, d-dimer is improving. Patient continues on IV steroids, and she is on oral anticoagulation 15 mg once daily, and vitamins. On 05/31/2020 patient seen in follow-up. She remains on high flow oxygen per Airvo, currently at 60 features and FiO2 of 70%, with a pulse ox of 90-91%, no worsening dyspnea, patient has been getting up to the chair, she is eating, does not appear to be in any acute distress, lung sounds reveal diffuse crackles bilaterally, she's been afebrile, she does desaturate quite easily with any exertion or speaking, no chest discomfort, no cough. No nausea vomiting or diarrhea, her appetite is fair. Her labs showed improving inflammatory markers and downtrending d-dimer. She remains on Xarelto, IV steroids, and vitamins. On 06/01/2020 patient seen in follow-up on medical floor, last night we placed a central line in the right femoral vein, patient was quite intravascularly depleted and dehydrated, and we ordered IV hydration with 0.9 normal saline at 75 ML per hour on which she remains today. She remains on high flow oxygen at 60 L and 65%, her pulse ox is 95%, she is afebrile, hemodynamically she is stable. She looks and sounds better on today's exam, less confused, she denies any acute distress, no chest pain, no shortness of breath, appears to be breathing comfortably, although does easily desaturate with exertion. SHe is sitting up in bed, eating lunch, last night apparently she had gotten up, she was confused, she had removed her Airvo, and was found by the nurses with low O2 saturation is confused and chewing on the Airvo nosepiece. She is being monitored closely. She is receiving when necessary doses of Haldol. She remains on multivitamins, IV steroids 40 mg every 8 hours, she is on several told, she status post 2 doses of postnasal exam, she was too late for Remdesivir, did receive 1 dose of convalescence plasma. Her last chest x-ray was yesterday showing scattered infiltrates greater in the right upper and left lower lobes. Progress note dated 06/02/2020. The patient is again seen on the general medical floor. She is in room 482. She's currently remains on AIRVO, at 60 L/m, and an FiO2 of 70%. She is also on saline at 75 mL an hour. A couple days ago, we placed a right femoral triple-lumen catheter. Her volume status was very depleted at that time. Currently, she seems be doing relatively well. She does have a good attitude. White count is 25, hemoglobin 11.5, hematocrit 36.1, and platelet count 237,000. D-dimer is 2.11. Sodium 144, potassium 4.4, chloride 117, CO2 19, anion gap 8, BUN is 77, and creatinine 1.3. LDH is 433, C-reactive protein is less than 0.4. A chest x-ray shows diffuse increased lung markings, greater in the left lower lobe and are nonspecific. Progress note dated 06/03/2020. 79-year-old female who is again seen on the general medical floor. She is in room 482. She remains on AIRVO. But her oxygen requirements have increased, as she is now on 60 L/m, with an FiO2 of 90%. Yesterday, her FiO2 was 70%. She also remains on saline at 75 mL an hour. A couple days ago, we did place a right femoral triple-lumen catheter in her. No new labs today. The patient is really not any better, but not much worse either. Her overall clinical conditi on remains about the same. Her chest x-ray, and my opinion, is essentially unchanged, compared to a chest x-ray done on May 31. The findings in the lower lobes, are nonspecific and compatible with atypical pneumonia. 06/04/2020 the patient is transferred to the intensive care unit. The patient had to be transferred yesterday to cause of increased lethargy and worsening shortness of breath and hypoxemia. Note that the patient was on high flow oxygen at 60 L with an FiO2 of 90% and she was being gradually weaned off. Meanwhile, because of the decompensation, the patient was brought into the ICU and currently she is on a BiPAP at a pressure of 14/6 cm of water with an FiO2 of 100%. The patient's pulse ox currently is around 89-90%. The chest x-ray has not been done yet. The last chest x-ray is from 06/02/2020 and the patient had bilateral pulmonary infiltrates right upper lobe, right lower lobe, left lower lobe and there is also a pacemaker over the left anterior chest area. T his patient otherwise has a white count of 33 which is up. The blood gases from today on on a percent FiO2 showed a pH of 7.12 with a pCO2 of 53 and pO2 of 73 and I believe this was done a BiPAP 12/8 cm of water. Potassium level is up to 6.2 with a sodium level of 146 and the creatinine is stable at 1.25. Lactic acid level is down to 2.8. The LDH is up to 2033 CRP is less than 5 and the patient was treated with steroids. He is currently on Solu-Medrol and she also received Tocilizumab and she also received 1 unit of convalescence plasma Objective - Vital Signs Vital signs: Vital Signs Temp 97.3 F L 06/04/20 04:00 Pulse 69 06/04/20 07:00 Resp 36 H 06/04/20 07:00 BP 153/91 06/04/20 07:00 Pulse Ox 84 L 06/04/20 07:00 Intake & Output 06/03/20 06/04/20 06/04/20 18:59 06:59 18:59 Intake Total 660 1300 75 Output Total 85 30 Balance 660 1215 45 Weight 72.4 kg Intake: IV 1300 75 Dextrose 5% in Water 1, 300 75 000 ml @ 75 mls/hr IV . [id number] LAURA with Sodium Bicarb (1 Meq/ml) 150 ml Rx#:[id number] Sodium Chloride 0.9% 1, 1000 000 ml @ 999 mls/hr IV . Q1H1M ONE Rx#:[id number] Oral 660 Output: Urine 85 30 Other: Voiding Method Indwelling Catheter # Voids 3 # Bowel Movements 1 - Exam No acute distress, oriented 3. Patient remains on BiPAP at a pressure of 14/6 cm of water with an FiO2 of 100%. She is tolerating the BiPAP with a full face mask. Her current minute ventilation is around 14 and the patient is able to generate tidal volumes around 100 mL. Pulse ox is around 89%. She has tachypneic and her breathing is in the mid 30s. She HEENT examination is grossly unremarkable. Mucous membranes are moist. No oral lesions. Neck supple. Full range of motion. No adenopathy thyromegaly or neck vein distention. Cardiovascular examination reveals regular rhythm rate. S1-S2 normal. No S3 or S4. No discernible murmur noted. Heart sounds are distant. Heart rate 63 bpm. Lungs reveal coarse bilateral rhonchi. Bibasilar crackles are noted. No wheezes. Breath sounds are equal bilaterally.. Abdomen soft bowel sounds are heard. No masses or tenderness. Extremities are intact. No cyanosis clubbing or edema. Right femoral triple lumen catheter is noted. Skin is without rash or lesion. Neurologic examination is brief but nonfocal. - Labs CBC & Chem 7: 06/04/20 03:00 06/04/20 03:00 Labs: Abnormal Lab Results - Last 24 Hours (Table) 06/03/20 06/03/20 06/03/20 Range/Units 11:19 16:05 21:11 WBC (3.8-10.6) k/uL MCHC (31.0-37.0) g/dL Neutrophils # (1.3-7.7) k/uL Lymphocytes # (1.0-4.8) k/uL D-Dimer (<0.60) mg/L FEU ABG pH (7.35-7.45) ABG pCO2 (35-45) mmHg ABG pO2 (83-108) mmHg ABG HCO3 (21-25) mmol/L ABG O2 Saturation (94-97) % Sodium (137-145) mmol/L Potassium (3.5-5.1) mmol/L Chloride (98-107) mmol/L Carbon Dioxide (22-30) mmol/L BUN (7-17) mg/dL Creatinine (0.52-1.04) mg/dL POC Glucose (mg/dL) 221 H 196 H 175 H (75-99) mg/dL Plasma Lactic Acid Zan (0.7-2.0) mmol/L Calcium (8.4-10.2) mg/dL AST (14-36) U/L ALT (4-34) U/L Alkaline Phosphatase (38-126) U/L Lactate Dehydrogenase (313-618) U/L Total Protein (6.3-8.2) g/dL Albumin (3.5-5.0) g/dL 06/04/20 06/04/20 06/04/20 Range/Units 01:58 02:46 03:00 WBC 33.0 H (3.8-10.6) k/uL MCHC 30.7 L (31.0-37.0) g/dL Neutrophils # 31.6 H (1.3-7.7) k/uL Lymphocytes # 0.4 L (1.0-4.8) k/uL D-Dimer (<0.60) mg/L FEU ABG pH 7.12 L* (7.35-7.45) ABG pCO2 53 H (35-45) mmHg ABG pO2 73 L (83-108) mmHg ABG HCO3 17 L (21-25) mmol/L ABG O2 Saturation 89.9 L (94-97) % Sodium (137-145) mmol/L Potassium (3.5-5.1) mmol/L Chloride (98-107) mmol/L Carbon Dioxide (22-30) mmol/L BUN (7-17) mg/dL Creatinine (0.52-1.04) mg/dL POC Glucose (mg/dL) 162 H (75-99) mg/dL Plasma Lactic Acid Zan (0.7-2.0) mmol/L Calcium (8.4-10.2) mg/dL AST (14-36) U/L ALT (4-34) U/L Alkaline Phosphatase (38-126) U/L Lactate Dehydrogenase (313-618) U/L Total Protein (6.3-8.2) g/dL Albumin (3.5-5.0) g/dL 06/04/20 06/04/20 06/04/20 Range/Units 03:00 03:00 03:00 WBC (3.8-10.6) k/uL MCHC (31.0-37.0) g/dL Neutrophils # (1.3-7.7) k/uL Lymphocytes # (1.0-4.8) k/uL D-Dimer 3.04 H (<0.60) mg/L FEU ABG pH (7.35-7.45) ABG pCO2 (35-45) mmHg ABG pO2 (83-108) mmHg ABG HCO3 (21-25) mmol/L ABG O2 Saturation (94-97) % Sodium 146 H (137-145) mmol/L Potassium 6.2 H* (3.5-5.1) mmol/L Chloride 118 H (98-107) mmol/L Carbon Dioxide 21 L (22-30) mmol/L BUN 55 H (7-17) mg/dL Creatinine 1.25 H (0.52-1.04) mg/dL POC Glucose (mg/dL) (75-99) mg/dL Plasma Lactic Acid Zan 3.4 H* (0.7-2.0) mmol/L Calcium 8.3 L (8.4-10.2) mg/dL AST 54 H (14-36) U/L ALT 35 H (4-34) U/L Alkaline Phosphatase 128 H (38-126) U/L Lactate Dehydrogenase (313-618) U/L Total Protein 5.5 L (6.3-8.2) g/dL Albumin 2.8 L (3.5-5.0) g/dL 06/04/20 06/04/20 06/04/20 Range/Units 03:00 06:26 06:42 WBC (3.8-10.6) k/uL MCHC (31.0-37.0) g/dL Neutrophils # (1.3-7.7) k/uL Lymphocytes # (1.0-4.8) k/uL D-Dimer (<0.60) mg/L FEU ABG pH (7.35-7.45) ABG pCO2 (35-45) mmHg ABG pO2 (83-108) mmHg ABG HCO3 (21-25) mmol/L ABG O2 Saturation (94-97) % Sodium (137-145) mmol/L Potassium (3.5-5.1) mmol/L Chloride (98-107) mmol/L Carbon Dioxide (22-30) mmol/L BUN (7-17) mg/dL Creatinine (0.52-1.04) mg/dL POC Glucose (mg/dL) 144 H (75-99) mg/dL Plasma Lactic Acid Zan 2.8 H* (0.7-2.0) mmol/L Calcium (8.4-10.2) mg/dL AST (14-36) U/L ALT (4-34) U/L Alkaline Phosphatase (38-126) U/L Lactate Dehydrogenase 2034 H (313-618) U/L Total Protein (6.3-8.2) g/dL Albumin (3.5-5.0) g/dL Assessment and Plan Plan: #1. Acute severe hypoxemic respiratory failure related to COVID 19 pneumonitis, and patient had a rapid deterioration in her oxygenation status since admission. Patient had exposure to COVID 19 positive . Onset of symptoms within 7 days prior to presentation. Patient is status post 1 unit of convalescent plasma, 2 doses of Actemra 400 mg. he is currently on IV Solu-Medrol and the patient is receiving 40 mg IV Solu Medrol every 8 hours. The patient had further decompensation and the patient had to be transferred to the intensive care unit and currently she is on a BiPAP at a pressure 15/5 cm of water with an FiO2 of 100%. There is further rise in the LDH. The patient is on long-term and to coagulation with Xarelto. #2. Elevated inflammatory markers related to the above. #3. Elevated d-dimer, but no evidence of pulmonary embolism on CTA chest, patient takes Xarelto on a regular basis. #4. Diabetes mellitus type 2. #5. Chronic A. fib on Xarelto. #6. Permanent pacemaker implantation. #7. Hypothyroidism. #8. Chronic kidney disease, unspecified. The patient's renal function is stable at creatinine of 1.25. #9. Osteoarthritis. #10. Acute toxic metabolic encephalopathy, delirium, intermittent, related to severe hypoxic respiratory failure, dehydration. #11. Acute kidney injury related to dehydration, ATN. Creatinine is at 1.25 #12 leukocytosis, white cell count was at 33 Plan I evaluated this patient the bedside. The patient is in for situation for now. She is very much tachypneic even while on the BiPAP of 15/5 cm of water. Her respiratory rate is in the mid 30s. She is extremely lethargic and she is barely responsive to any verbal stimulation. She is using excessive muscle breathing. Based on this, I think the patient needs to be intubated immediately and placed on a mechanical ventilator. Was started on a tidal volume of 400 within a respiratory rate of 28 and FiO2 of 100% with a PEEP of 12. The patient will need a chest x-ray post intubation. The patient has a triple lumen catheter in the right groin. An arterial line needs to be inserted. The patient will be kept on Solu-Medrol and the dose was increased up to 60 mg every 6 hours. Check pro calcitonin level. Check inflammatory markers. Blood gases post intubation and necessity ventilator changes will be done. The patient's prognosis poor. She has been treated with convalescent plasma and Tocilizumab. She is also on long-term anticoagulation with Xarelto. Renal function is stable. IV fluids were placed on half-normal saline at the rate of 1 25 mL an hour. May need also to warrant empiric antibiotics. We'll put the patient IV cefepime pending for her pro calcitonin level. White cell count is quite elevated at this point in time. The patient will also be needed to be started on enteral feeding for nutritional support post intubation. NG tube will be inserted. Arterial line will be inserted. Critical care evaluation, done more than 30 minutes. Time with Patient: Greater than 30
[2020-06-04] MEDS ORDERED: propofoL 100 ML IV ONE (09:08)
[2020-06-04] MEDS ORDERED: PROPOFOL 10 MG/ML 20 ML VIAL IV ONE (09:10)
[2020-06-04] MEDS ORDERED: CHLORHEXIDINE GLUCONATE 15 ML CUP MUCOUS MEM SCH (09:15)
[2020-06-04] MEDS ORDERED: CEFEPIME 1 GM in SODIUM CHLORIDE 0.9% 50 ML IVPB ONE (09:30)
[2020-06-04] MEDS ORDERED: CISATRACURIUM 2 MG/ML 5 ML VIAL IV ONE (10:00)
[2020-06-04] MEDS ORDERED: LIDOCAINE 1% INJ 10MG/ML (20 ML MDV) ONE (10:23)
--- NOTE | 2020-06-04 10:26 | XR ---
EXAMINATION TYPE: XR chest 1V portable DATE OF EXAM: 06/04/2020 HISTORY: Shortness of breath. COMPARISON: 06/02/2020 TECHNIQUE: Single view of the chest is submitted. FINDINGS: Interval development of the right-sided pneumothorax estimated at 40-50%. Diffuse infiltrate persists throughout the left lung as well as the collapsed right lung. No evidence for mediastinal shift. End otracheal tube is well-positioned proximately 3.2 cm from the misha. NG tube is noted to course into the stomach. The heart is stable. Hilar and mediastinal structures are within normal limits. Degenerative changes are seen of the dorsal spine. IMPRESSION: 1. Interval development of large right-sided pneumothorax estimated at 40-50%.
[2020-06-04] MEDS ORDERED: NOREPINEPHRINE 8 MG in SODIUM CHLORIDE 0.9% 250 ML IV SCH (10:45)
[2020-06-04] MEDS ORDERED: EPINEPHrine 10 ML SYRINGE (0.1 MG/ML) ONE (11:04)
[2020-06-04] MEDS ORDERED: SODIUM BICARB 8.4% 50 ML SYR (1 MEQ/ML) ONE (11:07)
--- NOTE | 2020-06-04 11:22 | P.EN ---
Code Blue: Indication: PEA arrest Patient seen and examined at bedside. Arrived to room CPR in progress . PEA on the mornitor. EPI X [address] Barth arrived to room and called the who was informed that the patient passed. Time of 1111 No cardiac activity, absent respirations, no pulse, skin cool and dry Assessment/Plan: PEA arrest + COVID A Total of 3 minutes of CPR was preformed
--- NOTE | 2020-06-04 11:45 | P.EN ---
<Francheska Metz - Last Filed: 06/04/20 11:36> Patient's deteriorating clinical status was discussed with patient's and urgent intubation and placement on mechanical ventilator support was recommended. Patient's , Mr. Ap Vera had stated that patient would not want to be placed on a ventilator and he had discussed this with his sons, at that point she was unsure how to proceed. In view of rapidly deteriorating clinical status he agreed to short-term intubation and mechanical ventilator support. Patient was intubated per LAMP DECORATOR, waist on assist-control mode of ventilation however following intubation patient had high pressure alarm, para pressure was at 55, stat chest x-ray was obtained showing large right-sided pneumothorax estimated at 40-50%. Right-sided chest tube was placed emergently by Dr. Perez at the bedside, initially 24 Polish chest tube was placed, however the air leak was intermittent and subsequent chest x-ray showed persistent right apical pneumothorax. The right-sided chest tube was repositioned and subsequently 28-Polish chest tube was placed, the air leak was still intermittent and the chest tube was substituted for 32-Polish tube. Shortly following that patient was very hypotensive, she was given 2 L in IV fluid boluses was started on pressors in the form of Levophed. Chest x-ray showed improving but persistent right apical pneumothorax. Patient became pulseless and went into PEA and CODE BLUE was called. She was given CPR, amps of sodium bicarbonate and of epinephrine, she remained in PEA, at that time the code was stopped. Since was notified, patient's did not want to continue with any life-sustaining measures. Patient was then extubated I performed a history & physical examination of the patient and discussed their management with my nurse practitioner, Francheska Metz. I reviewed the nurse practitioner's note and agree with the documented findings and plan of care. Lung sounds are positive for diminished breath sounds. The findings and the impression was discussed with the patient. I attest to the documentation by the nurse practitioner. <Breann Perez - Last Filed: 06/04/20 21:46> I also contacted the and I informed of the events that led into the of the . He was appreciative and he understood all the information provided to him and I answered all of his questions to his satisfaction
[2020-06-04] MEDS ORDERED: methylPREDNISolone SOD SUCCI 125 MG/2 ML VIAL IV SCH (12:00)
--- NOTE | 2020-06-04 12:41 | XR ---
EXAMINATION TYPE: XR chest 1V portable DATE OF EXAM: 06/04/2020 COMPARISON: 06/04/2020 earlier exam INDICATION: Pneumothorax, tube placement TECHNIQUE: Single frontal view of the chest is obtained. FINDINGS: The heart size is mildly prominent. The pulmonary vasculature is normal. There is a moderate size right pneumothorax. Chest tube is in place with slight diminished size of th e pneumothorax compared to prior study. Subsequent images also demonstrate a smaller pneumothorax. Endotracheal tube is present with the tip above the misha. Nasogastric tube transverses the thorax. Last opacities are present diffusely through the bilateral lung white. Air bronchograms are in the l eft lower lobe. IMPRESSION: 1. Moderate right pneumothorax post chest tube placement right pneumothorax is diminished from the pr echest tube placement 2. Groundglass opacities in the bilateral lung white are nonspecific but can be related to pulmonary edema and atypical pneumonia
--- NOTE | 2020-06-04 12:58 | XR ---
EXAMINATION TYPE: XR chest 1V portable DATE OF EXAM: 06/04/2020 COMPARISON: 06/04/2020 HISTORY: SOB, Follow Up FINDINGS: Right-sided chest tube is in place. Persistent right-sided pneumothorax with the right apical pleural distance of 1.8 cm. No evidence for mediastinal shift. Endotracheal and NG tubes are unchanged in po sition. Bilateral infiltrates persist. Stable appearance of the cardio-mediastinal structures at this time. Pleural effusion unchanged. IMPRESSION: 1. Right-sided chest tube is in place. Persistent right-sided pneumothorax with the right apical ple ural distance of 1.8 cm. No evidence for mediastinal shift.
--- NOTE | 2020-06-04 13:00 | XR ---
EXAMINATION TYPE: XR chest 1V portable DATE OF EXAM: 06/04/2020 COMPARISON: Earlier in the day HISTORY: SOB, Follow Up FINDINGS: Indwelling tubes and catheters are unchanged. Right-sided pneumothorax is unchanged. Bilateral airspace and interstitial infiltrates are stable. Stable appearance of the cardio-mediastinal structures at this time. IMPRESSION: 1. Stable portable chest. Clinical correlation and follow up until resolution is recommended.
--- NOTE | 2020-06-04 14:23 | P.PCN ---
Date of Procedure: 06/04/20 Preoperative Diagnosis: Pneumothorax, right-sided Postoperative Diagnosis: Pneumothorax, right-sided Procedure(s) Performed: Chest tube insertion Anesthesia: local Surgeon: Breann Perez Pathology: other Condition: stable Operative Findings: A time-out was completed verifying correct patient, procedure, site, positioning, and special equipment if applicable. The patient was positioned appropriately for chest tube placement. The patients right chest was prepped and draped in sterile fashion. 1% Lidocaine was used to anesthetize the surrounding skin area. A 2 cm skin incision was made in the mid-axillary line at the inframammarycrease. Utilizing blunt dissection a subcutaneous tunnel was created cephalad just adjacent to the superior rib. The pleural space was entered bluntly and gush of air was observed. A finger was inserted into the pleural space to check for anatomy and guide tube insertion. [id number] tube was inserted using a Shira clamp and positioned appropriately. The chest tube was sutured securely to the skin and a sterile dressing applied. A pleurevac was attached to the chest tube and a chest x-ray obtained. I personally performed this procedure and I was was present for the entire procedure. Estimated Blood Loss: 0 The patient tolerated the procedure well and there were no complications.
[2020-06-04 16:58] VITALS: BP 62/52; PULSE 0; RESP 0; TEMP 96.2
[2020-06-04] MEDS: ASCORBIC ACID 500 MG TAB PO SCH (17:01)
[2020-06-04] MEDS: METOPROLOL SUCCINATE (ER) 100 MG TAB.ER.24H PO SCH (17:02)
[2020-06-04] MEDS: CHOLECALCIFEROL 25 MCG (1000 IU) TABLET PO SCH (17:02)
[2020-06-04] MEDS: ZINC SULFATE 220 MG CAP PO SCH (17:02)
[2020-06-04] MEDS: lisinopriL 5 MG TAB PO SCH (17:02)
[2020-06-04] MEDS ORDERED: CEFEPIME 1 GM in SODIUM CHLORIDE 0.9% 50 ML IVPB SCH (21:00)
--- NOTE | 2020-06-04 21:48 | P.DS ---
Providers Date of admission: 05/24/20 16:07 Expected date of discharge: 06/04/20 Attending physician: Jarret Madrid Consults: 05/24/20 16:07 Consult Physician Routine Consulting Provider: Demetrio Mccabe Consult Reason/Comments: COVID pneumonia Do you want consulting provider notified?: Yes Primary care physician: [facility] Course: Chief Complaint: Short of breath History of presenting complaint: This is a pleasant 79-year-old patient, follows a Dr. Romero. Chronic stable medical conditions include atrial fibrillation, diabetes, hypothyroid, history of kidney stones. Ostial arthritis. Has a pacemaker. Patient presents increasing shortness of breath with minimal exertion. Chest pressure. No cough no fever no chills. Feeling very tired and weak and rundown. No body aches. No diarrhea. No loss of smell or taste. Patient be put on high flow oxygen. Is able to eat some food. Admitted with bilateral COVID 19 pneumonia. Severe. Started vitamin C vitamin D Pepcid steroids, home dose of Seroquel continued. Patient became more short of breath. Was moved to the ICU. Moved back to the medical floor. Patient slowly deteriorated. Today: Last that patient smoked ICU. An breathing worsen. Continue to go down now. Intubated. Patient earlier today. Consultation: Dr. Perez partners from pulmonary Past medical history to include: Atrial fibrillation, diabetes, hypothyroid, kidney stones, INVESTIGATIONS, reviewed in the clinical context: June 02: WBC 24.9 hemoglobin 11.5 d-dimer 2.11 CRP less than 0.4 May 31: Hemoglobin 15.2 d-dimer 3.31 creatinine 1.4 to CRP less than 5 May 29: D-dimer 5.76 CRP 11.8 May 28: D-dimer 7.04 CRP 20.3 May 26: WBC 11.1 hemoglobin 12.9 potassium 4.8 creatinine 1.01 CRP 63.7 WBC 11.6 hemoglobin 14.5 platelets 350 lymphocytes 0.7 D-dimer 3.87 ABG-pH 7.44 pO2 59 CO2 20 Potassium 5.1 BUN 29 creatinine 1.16 lactic acid 5.4 CRP 165.5 pro-calcitonin 0.42 Coronavirus [PCR]-detected EKG tracing personally reviewed by me-ventricle brace rhythm Chest CT-extensive bilateral comfort 80s of groundglass. Some chronic changes also. Possibly bronchiectasis. Some borderline enlarged mediastinal hilar lymph nodes. Negative for PE Chest x-ray film personally reviewed by me-cardiomegaly with infiltrates Cause of -Acute bilateral COVID 19 pneumonia, severe. on vitamin C, vitamin D, Pepcid, steroids, patient is chronically on xarelto.- Other medical conditions -Acute severe hypoxic respiratory failure from above. -Obesity BMI 39.5. -Diabetes mellitus type 2 chronically on insulin. Uncontrolled with hyperglycemia. Follow Accu-Cheks. Levemir placed. Glucophage-hold -Hyperlipidemia on Lipitor -Hypothyroid continue with Synthroid -Persistent atrial fibrillation patient on Toprol-XL. -Permanent pacemaker Disposition: Patient Plan - Discharge Summary Discharge Rx Participant: Yes New Discharge Prescriptions: No Action Furosemide [Lasix] 20 mg PO DAILY Levothyroxine Sodium [Synthroid] 25 mcg PO DAILY Cholecalciferol [Vitamin D3 (25 Mcg = 1000 Iu)] 1,000 unit PO DAILY metFORMIN HCL [Glucophage] 500 mg PO BID-W/MEALS Insulin Glargine,Hum.rec.anlog [Lantus Solostar] 9 unit SQ HS Insulin Lispro [humaLOG Kwikpen] 5 unit SQ AC-TID Rivaroxaban [Xarelto] 15 mg PO W/SUPPER Metoprolol Succinate (ER) [Toprol XL] 150 mg PO BID Atorvastatin [Lipitor] 10 mg PO HS lisinopriL [Zestril] 5 mg PO DAILY Discharge Medication List Furosemide [Lasix] 20 mg PO DAILY 07/14/13 [History] Levothyroxine Sodium [Synthroid] 25 mcg PO DAILY 07/18/13 [History] Cholecalciferol [Vitamin D3 (25 Mcg = 1000 Iu)] 1,000 unit PO DAILY 09/22/18 [History] Insulin Glargine,Hum.rec.anlog [Lantus Solostar] 9 unit SQ HS 09/22/18 [History] Insulin Lispro [humaLOG Kwikpen] 5 unit SQ AC-TID 09/22/18 [History] metFORMIN HCL [Glucophage] 500 mg PO BID-W/MEALS 09/22/18 [History] Rivaroxaban [Xarelto] 15 mg PO W/SUPPER 02/15/19 [History] Metoprolol Succinate (ER) [Toprol XL] 150 mg PO BID 04/27/19 [History] Atorvastatin [Lipitor] 10 mg PO HS 05/04/19 [History] lisinopriL [Zestril] 5 mg PO DAILY 05/24/20 [History] Follow up Appointment(s)/Referral(s): Ap Romero DO [Primary Care Provider] - 1-2 days Patient Instructions/Handouts: Coronavirus Disease 2019 (COVID-19) Discharge Disposition: - Preliminary Cause of Preliminary Cause of : COVID 19 pneumonia
[2020-06-05 13:20] LABS: ABG PH 7.12 (7.35-7.45)
[2020-06-05 16:35] LABS: LD Isoenzymes 1 19 % (19-38); LD Isoenzymes 2 34 % (30-43); LD Isoenzymes 3 19 % (16-26); LD Isoenzymes 4 10 % (3-12); LD Isoenzymes 5 18 % (3-14); Lactacte Dehydrogenase(LD) ISO 425 U/L (120-250)
--- NOTE | 2020-06-07 14:21 | CDI ---
Documentation Clarification Form Mortality Review Date: 06/07/2020 02:16:20 PM From: Marbella Ray RN, CCDS Admit Date: 05/24/2020 04:07:00 PM Patient Name: Елена Vera Visit Number: [id number] Discharge Date: 06/04/2020 04:20:00 PM ATTENTION: The Clinical Documentation Specialists (CDI) and [facility] Coding Staff appreciate your assistance in clarifying documentation. Please respond to the clarification below the line at the bottom and electronically sign. The CDI & [facility] Coding staff will review the response and follow-up if needed. Please note: Queries are made part of the Legal Health Record. If you have any questions, please contact the author of this message via ITS. Dr. Jarret Madrid The patient presented with bilateral Covid19 Pneumonitis. Additional clarification regarding the etiology/cause of the clinical indicators regarding the patients deterioration is requested. History/Risk Factors: Acute bilateral COVID Pneumonia with acute hypoxic respiratory failure, ATN, DM2, Obesity, Clinical Indicators: 05/24- 06/04 WBC: 11.6/11.1/28.8/24.98/33 Neutrophils 9.7/9.5/26..4/22.81/31.6 D-dimer 3.387/7.04/5.76/3.31/2.11/3.04 05/24 Lactic acid: 5.4/2.5/3.6/1.8 05/24 Coronavirus PCR + 06/05 Blood cultures: E.coli +, Klebsiella pneumonia + Vitals signs: elevated RR and declining Spo2 with increasing O2 demands since admission 06/04 Event: PEA arrest Treatment: IV Solumedrol 40mg IVP Q 8 hrs. 05/31 0.9% NS 500 cc IVF bolus 06/04 0.9% NS 2l IVF bolus and 1L 0.45% NS IVF Bolus 06/04 Levophed titrate for B/P 05/25 & 05/26 Tocilizumab 400mg IVPB OT ID Consult: not ordered Antibiotics: not ordered In your professional opinion, please clarify if these findings signify one of the following conditions: [ ] Sepsis, Not POA [ ] Severe Sepsis with organ failure [ ] Septic Shock [ ] Other, please specify [ ] Unable to determine SIRS Criteria: 2 or more of the following may indicate SIRS Temperature < 96.8F (36C) or > 101.0F (38.3C) Heart Rate > 90 bpm Respiratory Rate > 20 breaths/min or PaCO2 < 32 mmHg White Blood Cell Count > 12,000 or < 4,000 cells/mm3 or > 10% bands (Template Last Reviewed: April 2020) Sepsis with blood cultures positive for E. coli and Klebsiella pneumoniae MTDD
== END 2020-06-04 16:20 | disposition expired | DRG 208 ==
LOC: EC 12:55 → 3SCARD 16:07 → 2SICU 05-25 14:34 → 4SSUR 05-26 14:44 → 2SICU 06-04 02:51
PROVIDERS: ADMIT Hospitalist; ATTEND Hospitalist
PROC: 5A09557 Assistance with Respiratory Ventilation, Greater than 96 Consecutive Hours, Continuous Positive Airway Pressure (ICD-10-PCS; 2020-05-24)
PROC: 5A0955A Assistance with Respiratory Ventilation, Greater than 96 Consecutive Hours, High Flow/Velocity Cannula (ICD-10-PCS; 2020-05-24)
PROC: XW13325 Transfusion of Convalescent Plasma (Nonautologous) into Peripheral Vein, Percutaneous Approach, New Technology Group 5 (ICD-10-PCS; 2020-05-25)
PROC: XW033H5 Introduction of Tocilizumab into Peripheral Vein, Percutaneous Approach, New Technology Group 5 (ICD-10-PCS; 2020-05-25)
PROC: 05HF33Z Insertion of Infusion Device into Left Cephalic Vein, Percutaneous Approach (ICD-10-PCS; 2020-05-28)
PROC: 06HM33Z Insertion of Infusion Device into Right Femoral Vein, Percutaneous Approach (ICD-10-PCS; 2020-05-31)
PROC: 0BH17EZ Insertion of Endotracheal Airway into Trachea, Via Natural or Artificial Opening (ICD-10-PCS; principal; 2020-06-04)
PROC: 5A1935Z Respiratory Ventilation, Less than 24 Consecutive Hours (ICD-10-PCS; principal; 2020-06-04)
PROC: 0W9930Z Drainage of Right Pleural Cavity with Drainage Device, Percutaneous Approach (ICD-10-PCS; principal; 2020-06-04)
PROC: 3E043XZ Introduction of Vasopressor into Central Vein, Percutaneous Approach (ICD-10-PCS; principal; 2020-06-04)
PROC: 0D9670Z Drainage of Stomach with Drainage Device, Via Natural or Artificial Opening (ICD-10-PCS; 2020-06-04)
PROC: 5A12012 Performance of Cardiac Output, Single, Manual (ICD-10-PCS; 2020-06-04)
PROC: 03JYXZZ Inspection of Upper Artery, External Approach (ICD-10-PCS; 2020-06-04)
DX: U07.1 COVID-19 (principal); A41.51 Sepsis due to Escherichia coli [E. coli]; A41.59 Other Gram-negative sepsis; J12.82 Pneumonia due to coronavirus disease 2019; J96.01 Acute respiratory failure with hypoxia; N17.0 Acute kidney failure with tubular necrosis; J96.02 Acute respiratory failure with hypercapnia; G92 Toxic encephalopathy; J47.0 Bronchiectasis with acute lower respiratory infection; I48.19 Other persistent atrial fibrillation; J93.82 Other air leak; J93.9 Pneumothorax, unspecified; E86.0 Dehydration; E11.22 Type 2 diabetes mellitus with diabetic chronic kidney disease; E11.65 Type 2 diabetes mellitus with hyperglycemia; I46.8 Cardiac arrest due to other underlying condition; Z79.4 Long term (current) use of insulin; N18.9 Chronic kidney disease, unspecified; E78.5 Hyperlipidemia, unspecified; E03.9 Hypothyroidism, unspecified; M19.90 Unspecified osteoarthritis, unspecified site; R32 Unspecified urinary incontinence; E66.9 Obesity, unspecified; Z68.39 Body mass index [BMI] 39.0-39.9, adult; Z79.890 Hormone replacement therapy; Z79.01 Long term (current) use of anticoagulants; Z79.899 Other long term (current) drug therapy; Z87.442 Personal history of urinary calculi; Z95.0 Presence of cardiac pacemaker; Z96.653 Presence of artificial knee joint, bilateral; Z98.42 Cataract extraction status, left eye; Z98.41 Cataract extraction status, right eye; Z90.11 Acquired absence of right breast and nipple; Z98.890 Other specified postprocedural states; Z83.3 Family history of diabetes mellitus; Y92.230 Patient room in hospital as the place of occurrence of the external cause; Y84.8 Other medical procedures as the cause of abnormal reaction of the patient, or of later complication, without mention of misadventure at the time of the procedure
CPT/HCPCS: 36410; 36415; 36600; 71045; 71275; 76937; 80048; 80053; 82728; 82805; 83605; 83615; 83625; 83735; 84132; 84145; 85025; 85379; 85384; 85610; 85730; 86140; 86850; 86900; 86901; 87040; 87086; 87635; 92950; 93005; 94002; 94660; 94760; 99291